=== PATIENT | male | born 1965 | race Caucasian/White ===

== ENCOUNTER 2020-03-25 07:12 | Emergency (ER) | payer OTHER, SELFPAY ==
[2020-03-25] VITALS (8 sets, daily range): BP systolic 105–161; BP diastolic 64–80; PULSE 95–135; RESP 21–42; TEMP 36.7–37.9; O2SAT 93–100; BMI 34.9
--- NOTE | ~2020-03-25 | XR_ITS ---
EXAMINATION: XR CHEST CLINICAL INFORMATION: Cough, dyspnea. COMPARISON: Chest 05/10/2019 TECHNIQUE: Frontal view of the chest was obtained. FINDINGS: The lungs are hypoexpanded with patchy opacity seen in the right upper and middle lobe and left lower lobe suspicious for developing infiltrates. Heart size and pulmonary vascularity is normal. No gross bony abnormality seen except for mild spondylosis dorsal spine. XR/XR chest 1V IMPRESSION: Right upper, mid and left lower lobe infiltrates in evolution.
--- NOTE | ~2020-03-25 | CT_ITS ---
EXAMINATION: CT ANGIOGRAM OF THE CHEST WITH AND WITHOUT CONTRAST (CT PULMONARY ANGIOGRAM FOR PE) CLINICAL INFORMATION: Reason for Exam Fever, shortness of breath, COVID +, elevated D-dimer r/o PE COMPARISON: Previous chest CT from earlier the same day and chest CTA April 2019 TECHNIQUE: Prior to contrast administration, noncontrast localization images were obtained. Subsequently, multidetector volumetric imaging was performed from the thoracic inlet to below the diaphragms following the administration of 80 mL Omnipaque 350 intravenous contrast. No contrast reaction reported Sagittal, coronal, and MIP oblique sagittal reformatted images were obtained on the CT workstation, uploaded to PACS, and reviewed. This CT examination was performed using dose optimization techniques as appropriate, variously including the following: *Automated exposure control *Adjustment of mA and/or kV according to patient size (this includes techniques or standardized protocols for targeted exams where dose is matched to indication/reason for exam; i.e. extremities or head) *Use of iterative reconstruction technique Total exam dose-length product mGy-cm FINDINGS: QUALITY OF STUDY/CONTRAST BOLUS: Satisfactory. PULMONARY ARTERIES: No evidence of large or central pulmonary embolism is seen. Evaluation of smaller segmental and subsegmental pulmonary arteries is significantly limited due to respiratory motion artifact. THORACIC AORTA: No aneurysm or dissection. LUNG: There are bilateral round peripheral infiltrates seen in the bilateral upper and left lower lobes and denser larger area of consolidation with air bronchograms in the right lower lobe. Appearance is compatible with Covid infection. PLEURA: No pleural effusion or pneumothorax. MEDIASTINUM: The heart is upper normal in size. No pericardial effusion. No hilar or mediastinal lymphadenopathy. No evidence of septal bowing or right heart strain. CHEST WALL/AXILLA: No axillary or internal mammary lymphadenopathy. OSSEOUS STRUCTURES: No acute or suspicious osseous abnormality. There are degenerative changes of the spine. UPPER ABDOMEN: Unremarkable. No reflux of contrast into the hepatic veins to suggest elevated right heart pressures. CT/CT angio chest PE protocol IMPRESSION: Very limited exam due to respiratory motion artifact. No evidence of large or central pulmonary embolism is seen. Evaluation of smaller segmental and subsegmental pulmonary arteries is significantly limited due to respiratory motion artifact. Bilateral round peripheral infiltrates in the bilateral upper and left lower lobes and denser larger area of consolidation with air bronchograms in the right lower lobe. Findings are compatible with Covid infection. VTE: negative
--- NOTE | 2020-03-25 07:36 | ECG_ITS ---
Test Reason : SOB Blood Pressure : / mmHG Vent. Rate : 121 BPM Atrial Rate : 121 BPM P-R Int : 126 ms QRS Dur : 084 ms QT Int : 316 ms P-R-T Axes : 049 085 022 degrees QTc Int : 448 ms Sinus tachycardia Possible Left atrial enlargement Nonspecific ST and T wave abnormality Abnormal ECG No previous ECGs available Referred By: Adam Staton Electronically Signed By:GALO DENNEY
--- NOTE | 2020-03-25 07:38 | ED.GENADULT ---
HPI - General Adult General Chief complaint: Dyspnea Stated complaint: SEVERE RESP DISTRESS, ? COVID Time Seen by Provider: 03/25/20 07:35 Source: patient Mode of arrival: EMS Limitations: no limitations History of Present Illness HPI narrative: 54-year-old male who presents emergency department for evaluation shortness of breath. The patient states that yesterday he was feeling a T he states that yesterday evening at around 10:00 p.m. he began to have shortness of breath. He states he has had a cough which is persistent and nonproductive. He had an albuterol inhaler and was using 2 puffs every 3 hours without relief of his shortness of breath or cough. He states that his symptoms got worse this morning and had difficulty breathing so he called an ambulance. EMS found the patient in moderate respiratory distress with a respiratory rate of 44 and an O2 saturation of 93% on room air. The patient states that his mother was recently diagnosed with COVID-19 and is currently hospitalized at [facility]. He has been living with his parents and has been exposed to his mother. He denied fever, chills, chest pain, myalgias, arthralgias, loss of sense of taste or smell. He states he did develop loose diarrheal stool yesterday. He denied abdominal pain. Related Data Previous Rx's Medication Instructions Recorded azithromycin [Zithromax Z-Chilango] See Rx Instructions .ROUTE 03/25/20 .COMPLEX #6 tab dexamethasone [Decadron] 6 mg PO DAILY 7 Days #7 tab 03/25/20 Allergies Allergy/AdvReac Type Severity Reaction Status Date / Time Penicillins [PENICILLINS] Allergy Unknown ANAPHYLAXIS Unverified 10/31/19 19:50 Review of Systems Review of Systems: Yes all other systems are reviewed and are negative Neurologic: Reports Abnormal speech present [facility] Past Medical History [facility] Narrative: Patient has a history of diabetes mellitus, hypertension, hyperlipidemia, he states that he has had bronchitis and pneumonia in the past. He is a former smoker and stopped smoking 20 years prior, denies drug and alcohol use. He is currently living with his parents and as stated in the HPI, his mother is COVID positive minutes hospitalized at [facility]. Medical History Bronchitis HTN (hypertension) Hyperlipemia Social History Social History Alcohol intake: never Smoking Status: Former smoker Smoked in Last 30 Days: No Use of substances other than those prescribed or required for medical reasons: No Advance Directives: No Advance Directives Information Provided: No Physical Exam Vital Signs: Vital Signs: Last Vital Signs Temp 98.1 F 03/25/20 13:45 Pulse 95 03/25/20 13:45 Resp 33 H 03/25/20 13:45 BP 105/69 03/25/20 13:45 Pulse Ox 100 03/25/20 13:45 Body Mass Index 34.9 Const: General: cooperative and in distress moderate (Respiratory distress, paroxysmal coughing) Orientation/consciousness: oriented to person and oriented to place Limitations: no limitations HENMT: Head: Yes normal to inspection, Yes normocephalic and Yes atraumatic Ears: external ears normal General nose exam: Normal external nose present Face and sinus: Yes normal facial exam Mouth: Normal oral and palatal mucosa present Throat: Yes posterior oropharynx normal Eyes: Periorbital: periorbital findings normal Eyelids: Yes eyelids normal Conjunctivae: conjunctivae normal Sclerae: sclerae normal Corneas: corneas normal Pupils: Equal, round and reactive pupils present Direct Ophthalmoscopy: normal light reflex Neck: Neck: Yes full ROM, Yes no lymphadenopathy, Yes no meningeal signs, Yes trachea midline and Yes supple Chest: Chest palpation & inspection: normal inspection of the chest and normal palpation of entire chest wall Resp: Effort & Inspection: respiratory distress (Moderate), tachypneic and tripod positioning Auscultation: clear to auscultation bilaterally Cardio: Rate: regular rate and tachycardic Rhythm: regular rhythm Heart sounds: S1 normal heart sound present, S2 normal heart sound present and no murmurs GI: Inspection: Yes normal to inspection Palpation (GI): Soft to palpation, nontender, no guarding, not rigid and No hepatosplenomegaly present : General: Yes no CVA tenderness Back/Spine/Pelvis: Back: no CVA tenderness Cervical Spine: normal cervical lordosis Thoracic/Lumbar Spine: thoracic and lumbar spine normal to inspection Skin: Lesions: no lesions Rashes: no rashes Wounds: no wounds Neuro: General: oriented to person, oriented to place and no meningeal signs Cranial nerves: Yes CN's II-XII intact bilaterally and Yes Equal, round and reactive pupils present Cognition (Neuro): normal cognition Speech: Abnormal speech present Motor exam (neuro): 5/5 motor strength present throughout Extrem: General: Yes normal to inspection and Yes full ROM Psych: Appearance: well kempt Mental Status: mental status grossly normal Speech and movement: Normal speech and movement present Affect: Anxious affect present Attitude: cooperative Thought process: Normal thought process present Thought content: Normal thought content present Insight: Good insight present (Psych) Course Course Course Narrative: 54-year-old male who presents the emergency department for evaluation shortness of breath, cough fatigue and diarrhea. The patient's mother is COVID-19 positive. The patient's physical examination did reveal that he was in moderate respiratory distress with try potting, tachypnea and paroxysms of cough. Vital signs revealed a normal blood pressure, he was tachycardic with a pulse of 135 and tachypneic with a respiratory rate of 42. Temperature was 99.3? and O2 saturation was 94% on room air suggesting does not have any hypoxia at this time. Lung exam was clear. I did order a septic workup on this patient including a COVID-19 test and D-dimer. The patient was treated with albuterol inhaler 6 puffs, Decadron 10 mg IV and Ativan 1 mg IV. He was also ordered to get normal saline x1 L. 1432: The patient's laboratory evaluation normal CBC, elevated D-dimer 388, elevated creatinine of 1.43, elevated glucose of 232, elevated lactate of 3.1, and a COVID-19 test which was positive. The patient's chest x-ray is consistent with increased interstitial infiltrates bilaterally/COVID pneumonia. CT scan angiogram PE protocol revealed no large blood clots, patient has significant bilateral pneumonia consistent with a viral COVID 19 pneumonia. The patient was treated with ceftriaxone 1 g IV, azithromycin 500 mg IV, Decadron 10 mg IV and normal saline IV x2 L. patient did have a repeat lactic acid which did show some improvement. The patient does meet SIRS criteria but I do not think that he has severe sepsis and that his tachypnea secondary to his COVID pneumonia. The patient was not hypoxic but his respiratory rate remained greater than 40 and therefore he was placed on high-flow oxygen via nasal cannula at 40% and 60 liters/minute. This improved the patient's respiratory rate to the 20 range and the patient looks significantly better. I did discuss the patient's presentation with the covering crude oil treater and he felt that the patient could be managed on the medical floor at this time. I did discuss the patient with the covering hospitalist the patient will be admitted to [facility] for further treatment 1447: The patient wants to sign out against medical advice. He is aware that he is at high risk of dying from COVID pneumonia he leaves the emergency department. The patient understood this discussion and still wants to leave against medical advice. I told him that at any time if he feels worse he should call 911 and come back to emergency department morphine changes his mind he should call 911 and come back to the emergency department. Medical Decision Making Lab Data Result diagrams: 03/25/20 08:05 03/25/20 08:05 Labs: Lab Results 03/25/20 03/25/20 03/25/20 Range/Units 08:05 08:05 08:05 WBC 10.6 (4.8-10.8) X10*3/uL RBC 5.31 (4.60-5.80) X10*6/uL Hgb 14.9 (14.0-18.0) g/dl Hct 45.8 (42-52) % MCV 86.3 (80-98) fL MCH 28.1 (27.0-33.0) pg MCHC 32.5 (31.0-36.0) g/dl RDW 14.5 (11.0-16.0) % Plt Count 266 (160-400) X10*3/uL MPV 10.2 (9.4-12.4) fL Immature Gran % (Auto) 0.6 H (0.0-0.4) % Neut % (Auto) 79.8 H (45-73) % Lymph % (Auto) 10.5 L (20-40) % [place] % (Auto) 9.0 (2-11) % Eos % (Auto) 0.0 (0-4) % Baso % (Auto) 0.1 (0-2) % Lymph # (Auto) 1.1 L (1.2-4.9) X10*3/uL [place] # (Auto) 1.0 (0.1-1.2) X10*3/uL Eos # (Auto) 0.0 (0.0-0.4) X10*3/uL Baso # (Auto) 0.0 (0.0-0.2) X10*3/uL Abs Immat Gran (auto) 0.06 H (0.00-0.03) X10*3/uL Absolute Neuts (auto) 8.5 H (2.0-8.3) X10*3/uL Absolute Nucleated RBC 0.000 (0.0-0.012) X10*3/uL Nucleated RBC % (auto) 0.0 (0.0-0.2) /100WBC PT 12.9 (10.8-13.0) SEC INR 1.1 (0.9-1.1) APTT 31.0 (24.1-38.0) SEC D-Dimer 388 NG/ML Oxygen Given Sodium 137 (135-145) mmol/L Potassium 4.6 (3.3-5.1) mmol/L Chloride 101 (96-108) mmol/L Carbon Dioxide 12 L (22-29) mmol/L Anion Gap 29 H (12-20) BUN 19 H (9-16) mg/dL Creatinine 1.43 H (0.5-1.4) mg/dL Estim Creat Clear Calc 61.1 Estimated GFR 51 Random Glucose 232 H (60-115) mg/dL Lactic Acid (0.5-2.0) mmol/L Lactic Acid Fup @ 2Hr (0.5-2.0) mmol/L Calcium 8.1 L (8.4-10.2) mg/dL Total Bilirubin 0.5 (0.0-1.0) mg/dL AST 20 (5-37) U/L ALT 14 (0-40) U/L Alkaline Phosphatase 66 (39-117) U/L Troponin I High Sens (<3.5-35.0) ng/L Total Protein 6.8 (6.5-8.0) g/dL Albumin 3.8 (3.5-5.0) g/dL Lipase 18 (8-78) U/L Urine Color Urine Appearance Urine pH (5.0-8.0) Ur Specific [place] (1.005-1.025) Urine Protein (NEG-TRACE) MG/DL Urine Glucose (UA) (NEG) MG/DL Urine Ketones (NEG) MG/DL Urine Blood (NEG) Urine Nitrite (NEG) Ur Leukocyte Esterase (NEG) Urine RBC (0) /HPF Urine WBC (0-4) /HPF Ur Squamous Epith Cells /LPF Urine Bacteria /LPF Hyaline Casts /LPF Granular Casts /LPF Urine Mucus /LPF COVID-19 ([facility]) (Negative) COVID-19 Clin Com 03/25/20 03/25/20 03/25/20 Range/Units 08:05 08:05 08:05 WBC (4.8-10.8) X10*3/uL RBC (4.60-5.80) X10*6/uL Hgb (14.0-18.0) g/dl Hct (42-52) % MCV (80-98) fL MCH (27.0-33.0) pg MCHC (31.0-36.0) g/dl RDW (11.0-16.0) % Plt Count (160-400) X10*3/uL MPV (9.4-12.4) fL Immature Gran % (Auto) (0.0-0.4) % Neut % (Auto) (45-73) % Lymph % (Auto) (20-40) % [place] % (Auto) (2-11) % Eos % (Auto) (0-4) % Baso % (Auto) (0-2) % Lymph # (Auto) (1.2-4.9) X10*3/uL [place] # (Auto) (0.1-1.2) X10*3/uL Eos # (Auto) (0.0-0.4) X10*3/uL Baso # (Auto) (0.0-0.2) X10*3/uL Abs Immat Gran (auto) (0.00-0.03) X10*3/uL Absolute Neuts (auto) (2.0-8.3) X10*3/uL Absolute Nucleated RBC (0.0-0.012) X10*3/uL Nucleated RBC % (auto) (0.0-0.2) /100WBC PT (10.8-13.0) SEC INR (0.9-1.1) APTT (24.1-38.0) SEC D-Dimer NG/ML Oxygen Given Sodium (135-145) mmol/L Potassium (3.3-5.1) mmol/L Chloride (96-108) mmol/L Carbon Dioxide (22-29) mmol/L Anion Gap (12-20) BUN (9-16) mg/dL Creatinine (0.5-1.4) mg/dL Estim Creat Clear Calc Estimated GFR Random Glucose (60-115) mg/dL Lactic Acid 3.1 H* (0.5-2.0) mmol/L Lactic Acid Fup @ 2Hr (0.5-2.0) mmol/L Calcium (8.4-10.2) mg/dL Total Bilirubin (0.0-1.0) mg/dL AST (5-37) U/L ALT (0-40) U/L Alkaline Phosphatase (39-117) U/L Troponin I High Sens 3.7 (<3.5-35.0) ng/L Total Protein (6.5-8.0) g/dL Albumin (3.5-5.0) g/dL Lipase (8-78) U/L Urine Color Urine Appearance Urine pH (5.0-8.0) Ur Specific [place] (1.005-1.025) Urine Protein (NEG-TRACE) MG/DL Urine Glucose (UA) (NEG) MG/DL Urine Ketones (NEG) MG/DL Urine Blood (NEG) Urine Nitrite (NEG) Ur Leukocyte Esterase (NEG) Urine RBC (0) /HPF Urine WBC (0-4) /HPF Ur Squamous Epith Cells /LPF Urine Bacteria /LPF Hyaline Casts /LPF Granular Casts /LPF Urine Mucus /LPF COVID-19 ([facility]) Positive A (Negative) COVID-19 Clin Com See Note 03/25/20 03/25/20 03/25/20 Range/Units 12:13 12:13 14:20 WBC (4.8-10.8) X10*3/uL RBC (4.60-5.80) X10*6/uL Hgb (14.0-18.0) g/dl Hct (42-52) % MCV (80-98) fL MCH (27.0-33.0) pg MCHC (31.0-36.0) g/dl RDW (11.0-16.0) % Plt Count (160-400) X10*3/uL MPV (9.4-12.4) fL Immature Gran % (Auto) (0.0-0.4) % Neut % (Auto) (45-73) % Lymph % (Auto) (20-40) % [place] % (Auto) (2-11) % Eos % (Auto) (0-4) % Baso % (Auto) (0-2) % Lymph # (Auto) (1.2-4.9) X10*3/uL [place] # (Auto) (0.1-1.2) X10*3/uL Eos # (Auto) (0.0-0.4) X10*3/uL Baso # (Auto) (0.0-0.2) X10*3/uL Abs Immat Gran (auto) (0.00-0.03) X10*3/uL Absolute Neuts (auto) (2.0-8.3) X10*3/uL Absolute Nucleated RBC (0.0-0.012) X10*3/uL Nucleated RBC % (auto) (0.0-0.2) /100WBC PT (10.8-13.0) SEC INR (0.9-1.1) APTT (24.1-38.0) SEC D-Dimer NG/ML Oxygen Given 35% Sodium (135-145) mmol/L Potassium (3.3-5.1) mmol/L Chloride (96-108) mmol/L Carbon Dioxide (22-29) mmol/L Anion Gap (12-20) BUN (9-16) mg/dL Creatinine (0.5-1.4) mg/dL Estim Creat Clear Calc Estimated GFR Random Glucose (60-115) mg/dL Lactic Acid (0.5-2.0) mmol/L Lactic Acid Fup @ 2Hr 2.5 H* (0.5-2.0) mmol/L Calcium (8.4-10.2) mg/dL Total Bilirubin (0.0-1.0) mg/dL AST (5-37) U/L ALT (0-40) U/L Alkaline Phosphatase (39-117) U/L Troponin I High Sens (<3.5-35.0) ng/L Total Protein (6.5-8.0) g/dL Albumin (3.5-5.0) g/dL Lipase (8-78) U/L Urine Color YELLOW Urine Appearance CLEAR Urine pH 5.5 (5.0-8.0) Ur Specific [place] 1.025 (1.005-1.025) Urine Protein TRACE (NEG-TRACE) MG/DL Urine Glucose (UA) >=1000 H (NEG) MG/DL Urine Ketones >=80 (NEG) MG/DL Urine Blood 1+ H (NEG) Urine Nitrite NEG (NEG) Ur Leukocyte Esterase NEG (NEG) Urine RBC 0-2 (0) /HPF Urine WBC 0-2 (0-4) /HPF Ur Squamous Epith Cells TRACE /LPF Urine Bacteria NONE /LPF Hyaline Casts 0-2 /LPF Granular Casts 1-4 /LPF Urine Mucus TRACE /LPF COVID-19 ([facility]) (Negative) COVID-19 Clin Com Discharge Plan Discharge Clinical Impression: Pneumonia due to COVID-19 virus, Acute dyspnea, Left against medical advice Patient Disposition: Home, Self-Care Instructions: COVID-19 (Coronavirus Disease 2019) (ED) Additional Instructions: Your COVID test was positive. The CT scan of your lungs revealed no blood clots but he had extensive pneumonia in both sides of your once. You are leaving against medical advice. If you change your mind at any time, call 911 and come back to the emergency department for evaluation. You need to self isolate for 14 days. Take Zithromax antibiotic as prescribed Take prednisone 60 mg once a day for 7 days. Prescriptions: New azithromycin [Zithromax Z-Chilango] 250 mg tablet See Rx Instructions .ROUTE .COMPLEX Qty: 6 RF: 0 dexamethasone [Decadron] 6 mg tablet 6 mg PO DAILY 7 Days Qty: 7 RF: 0 Stand Alone Forms: Against Medical Advice
[2020-03-25] MEDS: 0.9 % Sodium Chloride 1,000 ML 999 ML IV ×2 (08:15→11:13)
[2020-03-25] MEDS: LORazepam 2 MG/ML VIAL 1 MG IVPUSH (08:21)
[2020-03-25 08:23] LABS: MANUAL DIFF FLAG NO
[2020-03-25 08:37] LABS: Basophils Percent Auto 0.1 % (0-2); COVID-19 Test Positive (Negative); Hematocrit 45.8 % (42-52); Hemoglobin 14.9 g/dl (14.0-18.0); Imm Gran Abs Auto 0.06 X10*3/uL (0.00-0.03); Imm Gran Pct Auto 0.6 % (0.0-0.4); Lymphocytes Absolute Auto 1.1 X10*3/uL (1.2-4.9); Lymphocytes Percent Auto 10.5 % (20-40); Mean Corpuscular HGB Conc 32.5 g/dl (31.0-36.0); Mean Corpuscular Hemoglobin 28.1 pg (27.0-33.0); Mean Corpuscular Volume 86.3 fL (80-98); Mean Platelet Volume 10.2 fL (9.4-12.4); Neutrophils Absolute Auto 8.5 X10*3/uL (2.0-8.3); Neutrophils Percent Auto 79.8 % (45-73); Platelet Count 266 X10*3/uL (160-400); Red Blood Count 5.31 X10*6/uL (4.60-5.80); Red Cell Distribution Width 14.5 % (11.0-16.0); White Blood Count 10.6 X10*3/uL (4.8-10.8)
[2020-03-25 08:54] LABS: INTERNATIONAL NORM RATIO 1.1 (0.9-1.1); Lactic Acid 3.1 mmol/L (0.5-2.0); Prothrombin Time 12.9 SEC (10.8-13.0)
[2020-03-25 08:57] LABS: D Dimer 388 NG/ML
[2020-03-25 08:58] LABS: Troponin-I High Sensitivity 3.7 ng/L (<3.5-35.0)
--- NOTE | 2020-03-25 09:03 | PC.NURSE ---
pt brought in home meds and took morning meds himself
[2020-03-25] MEDS: Acetaminophen 325 MG TABLET 975 MG PO (09:06)
[2020-03-25 09:08] LABS: Alanine Aminotransferase 14 U/L (0-40); Albumin Level 3.8 g/dL (3.5-5.0); Alkaline Phosphatase 66 U/L (39-117); Anion Gap 29 (12-20); Aspartate Amino Transferase 20 U/L (5-37); Bilirubin Total 0.5 mg/dL (0.0-1.0); Blood Urea Nitrogen 19 mg/dL (9-16); Calcium 8.1 mg/dL (8.4-10.2); Carbon Dioxide 12 mmol/L (22-29); Chloride 101 mmol/L (96-108); Creatinine Clr Calc Pharmacy 61.1; Estimated Glomerular Filt Rate 51; Glucose Random 232 mg/dL (60-115); Lipase 18 U/L (8-78); Potassium 4.6 mmol/L (3.3-5.1); Sodium 137 mmol/L (135-145); Total Protein 6.8 g/dL (6.5-8.0)
[2020-03-25 10:21] LABS: Reflex Lactate? Lactic Acid Added
--- NOTE | 2020-03-25 11:00 | PC.NURSE ---
PROVIDER AWARE THAT PATIENT REMAINS TACHY WITH INCREASED RESP RATE
[2020-03-25] MEDS: cefTRIAXone sodium 1 GM in 0.9 % Sodium Chloride 50 ML IV (11:13)
[2020-03-25] MEDS: Azithromycin 500 MG in 0.9 % Sodium Chloride 250 ML 125 MG IV (11:51)
[2020-03-25 12:28] LABS: Glucose Urine UA >=1000 MG/DL (NEG); Leukocyte Esterase Urine NEG (NEG); Nitrite Urine NEG (NEG); PH 5.5 (5.0-8.0); Specific Gravity - Urine 1.025 (1.005-1.025); Urine Blood 1+ (NEG); Urine Ketones >=80 MG/DL (NEG); Urine Protein TRACE MG/DL (NEG-TRACE)
[2020-03-25 12:35] LABS: Appearance Urine CLEAR; Color Urine YELLOW
[2020-03-25 12:42] LABS: Mucus Urine TRACE /LPF; RBC Urine 0-2 /HPF (0); Squamous Epithelial Cell Urine TRACE /LPF; WBC Urine 0-2 /HPF (0-4)
[2020-03-25 12:43] LABS: Hyaline Casts Urine 0-2 /LPF
[2020-03-25] MEDS: iohexoL 350 MG/ML 100 ML INFUS..BTL IV (12:46)
[2020-03-25 12:50] LABS: ~Lactic Acid-LAB USE ONLY 2.5 mmol/L (0.5-2.0)
--- NOTE | 2020-03-25 13:51 | PC.NURSE ---
pt started on high flow cannula 60L/42%
[2020-03-25 14:19] LABS: Reflex Lactate? 2 Y
[2020-03-25 14:29] LABS: Pt Ventilation O2% 35%
[2020-03-25 14:33] LABS: Base Excess ABG -16.3; HCO3 ABG 8 mmol/L (22-26); PO2 ABG 132 mmHg (83-108); pH ABG 7.25 (7.35-7.45)
[2020-03-25 14:34] LABS: ABG PCO2 17 mmHg (32-45)
[2020-03-25 14:59] LABS: C Reactive Protein 8.68 mg/dL (< or = 0.50); Lactate Dehydrogenase 372 U/L (118-273)
[2020-03-25 15:19] LABS: Ferritin 430 ng/mL (20-250)
[2020-03-25 15:21] LABS: Procalcitonin 0.19 ng/mL
--- NOTE | 2020-03-25 15:21 | PC.NURSE ---
Received male patient alert and oriented times four. Patient noted SOB, unable to complete full sentences. Patient lung sounds diminished. Patient aware of present states of condition. Patient is being discharged AMA. This nurse strongly suggested against it alongside prior nurses and provider but patient adamant in leaving. Patient was strongky sugessted to return upon taking care of emergent personal issue at home with elderly parent.
== END 2020-03-25 16:02 | disposition home or self-care (01) ==
PROVIDERS: Emergency Provider Emergency Medicine Emergency Medical Services
DX: U07.1 COVID-19 (principal); J12.82 Pneumonia due to coronavirus disease 2019; R06.00 Dyspnea, unspecified; Z79.899 Other long term (current) drug therapy; I10 Essential (primary) hypertension; E78.5 Hyperlipidemia, unspecified
CPT/HCPCS: 36415; 71045; 71275; 80053; 81001; 82728; 82803; 83605; 83615; 83690; 84145; 84484; 85025; 85379; 85610; 85730; 86140; 87040; 87635; 93005; 96361; 96365; 96375; 99284; 99285; J0456; J0696; J1100; J2060; Q9967

== ENCOUNTER 2020-03-26 11:10 | Inpatient (IN) | payer OTHER, SELFPAY ==
[2020-03-26] VITALS (22 sets, daily range): BP systolic 82–130; BP diastolic 42–90; PULSE 93–140; RESP 13–45; TEMP 36.3–37.7; O2SAT 90–100; BMI 28.3; BMI 27.8
--- NOTE | 2020-03-26 | ECG_ITS ---
Test Reason : metabolic acidosis Blood Pressure : / mmHG Vent. Rate : 115 BPM Atrial Rate : 115 BPM P-R Int : 130 ms QRS Dur : 086 ms QT Int : 352 ms P-R-T Axes : 069 084 032 degrees QTc Int : 486 ms Sinus tachycardia Otherwise normal ECG When compared to the previous EKG of No significant changes seen Referred By: Leena Stewart Electronically Signed By:JUAN NAVARRETE MD
--- NOTE | ~2020-03-26 | XR_ITS ---
EXAMINATION: XR CHEST CLINICAL INFORMATION: Hypoxia COMPARISON: Chest x-ray 03/29/2020 TECHNIQUE: Frontal portable view of the chest was obtained. 11:07 PM FINDINGS: Tubes and lines: 1. Endotracheal tube 4 sinus above juliocesar. 2. Left IJ catheter tip in superior vena cava. 3. Nasogastric tube in stomach. There is persistent hazy and patchy airspace opacities in lung bilateral. Most consolidated region is at the left lung base with air bronchograms in the retrocardiac region and silhouetting the left diaphragm. No large pleural effusions. XR/XR chest 1V IMPRESSION: Persistent bilateral airspace opacities. No significant change since prior chest x-ray 03/29/2020.
--- NOTE | ~2020-03-26 | XR_ITS ---
EXAMINATION: XR CHEST CLINICAL INFORMATION: Hypoxemia COMPARISON: Previous day TECHNIQUE: Frontal view of the chest was obtained. FINDINGS: Endotracheal tube remains within the mid thoracic trachea. Enteric tube courses below the diaphragm. Left internal jugular central venous catheter terminates within the mid SVC. Stable cardiomediastinal silhouette. Mild bilateral patchy airspace opacities unchanged. No large pleural effusion or pneumothorax. XR/XR chest 1V IMPRESSION: Stable airspace disease.
--- NOTE | ~2020-03-26 | XR_ITS ---
EXAMINATION: XR CHEST CLINICAL INFORMATION: Shortness of breath. COVID COMPARISON: Chest radiographs 03/25/2020, 05/10/2019, CT abdomen chest 03/25/2020 TECHNIQUE: Portable upright AP view of the chest was obtained. FINDINGS: Patient is slightly rotated to the right. There is an endotracheal tube with tip 2 cm from juliocesar. There is an orogastric tube with tip at lower thoracic esophagus 5 cm above the diaphragm. Repositioning is recommended. Lungs again shows some scattered patchy airspace opacities, increased left base and likely increased right retrocardiac region right medial base. Opacities right upper zone are stable to decreased. The vascularity is normal. The costophrenic sulci are clear. There is no effusion. The cardiac and hilar and mediastinal contours are unremarkable. Results are called and discussed with emergency Department (Brayden James NP) at 1306 hours. XR/XR chest 1V IMPRESSION: 1. NG/OG tube lower thoracic esophagus, 5 cm of the diaphragm. Repositioning recommended. 2. ET tube 2 cm above juliocesar. 3. Patchy airspace opacities, new small left base and likely increased right infrahilar region.
--- NOTE | ~2020-03-26 | XR_ITS ---
EXAMINATION: XR CHEST CLINICAL INFORMATION: Hypoxia COMPARISON: Previous chest x-ray most recent 03/31/2020 TECHNIQUE: Frontal view of the chest was obtained. FINDINGS: There is an endotracheal tube with tip 6 cm above the juliocesar. There is a nasogastric tube projects over the stomach. There is a left jugular line with tip projecting over the SVC. The cardiac and mediastinal contours are stable. There is dense bilateral airspace disease. This is greatest in the left lower lobe. This appears increased from 03/31/2020 exam. There is no significant pleural effusion. There is no pneumothorax. There are degenerative changes of the spine. XR/XR chest 1V IMPRESSION: Satisfactory position of support line and tubes. Increasing bilateral airspace disease probably representing pneumonia.
--- NOTE | ~2020-03-26 | XR_ITS ---
EXAMINATION: XR CHEST CLINICAL INFORMATION: ET tube placement COMPARISON: Earlier exam same day 12:32 PM TECHNIQUE: Portable 3:56 PM view of the chest was obtained. FINDINGS: ET tube tip remains relatively low approximately 2.2 cm above the juliocesar. The central aeration noted. Left-sided central line now with its tip overlying the SVC. No gross pneumothorax. There are patchy peripheral densities left greater than right consistent with atypical infection. No overt pulmonary edema major zones of volume loss or consolidation. Multiple leads again overlie the chest. OG tube appears to been discontinued. There is no OG tube within the stomach. Correlate clinically concerning once again a malpositioned tube as previously noted superimposed on the ET tube. XR/XR chest 1V IMPRESSION: ET tube remains similar to baseline as above. Bilateral infiltrates again noted consistent with atypical infection. OG tube not definitively seen as above. If this was not discontinued, malpositioning again noted.
--- NOTE | ~2020-03-26 | XR_ITS ---
EXAMINATION: XR CHEST CLINICAL INFORMATION: Covid COMPARISON: March 26, 2020 and March 25, 2020 TECHNIQUE: AP portable view of the chest was obtained. FINDINGS: There are again noted to be regions of patchy disease throughout the right lung as well as some disease within the mid to lower left lung. No significant changes appreciated taking into account difference in technique. Endotracheal tube is seen with tip approximately 4 cm above the juliocesar. Left internal jugular central venous catheter seen with tip junction of the innominate vein and superior vena cava. Heart normal size. No evidence of pulmonary edema. Nasogastric tube is seen traversing toward the stomach however its tip is not definitely identified. No pneumothorax or pleural effusion appreciated. XR/XR chest 1V IMPRESSION: No significant change in bilateral regions of patchy disease. Endotracheal tube tip approximately 4 cm above the juliocesar.
--- NOTE | ~2020-03-26 | XR_ITS ---
EXAMINATION: XR CHEST CLINICAL INFORMATION: OG placement COMPARISON: Earlier exam same day TECHNIQUE: Portable 8:09 PM view of the chest was obtained. FINDINGS: OG tube placed with its tip well below the GE junction overlying the gastric body. ET tube and central line similar. No pneumothorax grossly. Patchy infiltrates peripherally most consistent with atypical infection unchanged. XR/XR chest 1V IMPRESSION: As above.
--- NOTE | 2020-03-26 11:12 | ED.SOB ---
HPI - SOB/Dyspnea General Chief Complaint: Altered Mental Status Stated Complaint: SOB,+COVID,AMS Time Seen by Provider: 03/26/20 11:12 Source: EMS Mode of arrival: EMS Limitations: altered mental status History of Present Illness HPI Narrative: Patient with bilateral pneumonia secondary to COVID-19 infection was seen here yesterday for shortness of breath with going on for last 2-3 days CTA chest was negative for PE patient advised to stay in the hospital but patient refused was given Zithromax in and Decadron. Patient was hyperventilating yesterday maintaining his oxygen patient lives with his father who said since yesterday evening patient been going downhill when EMS reached patient was in the bed obtunded salt in stool with mottling of the legs saturating around 70% on arrival patient is saturating 99% on non-rebreather tachypneic semi conscious but able to maintain his airway Related Data Home Medications Medication Instructions Recorded Confirmed aspirin 81 mg PO DAILY 03/25/20 03/25/20 atorvastatin 20 mg PO DAILY 03/25/20 03/25/20 dulaglutide [Trulicity] 1.5 mg SUBCUT QWEEK 03/25/20 03/25/20 empagliflozin [Jardiance] 10 mg PO DAILY 03/25/20 03/25/20 levothyroxine 75 mcg PO DAILY 03/25/20 03/25/20 lisinopril 2.5 mg PO DAILY 03/25/20 03/25/20 metformin 1,000 mg PO BID 03/25/20 03/25/20 Previous Rx's Medication Instructions Recorded azithromycin [Zithromax Z-Chilango] See Rx Instructions .ROUTE 03/25/20 .COMPLEX #6 tab dexamethasone [Decadron] 6 mg PO DAILY 7 Days #7 tab 03/25/20 Allergies Allergy/AdvReac Type Severity Reaction Status Date / Time Penicillins [PENICILLINS] Allergy Unknown ANAPHYLAXIS Unverified 10/31/19 19:50 Review of Systems Review of Systems: Yes Unobtainable due to mental status Neurologic: Reports confusion Psychiatric: Psychiatric: Reports confusion PMF Past Medical History Medical History Bronchitis HTN (hypertension) Hyperlipemia Social History Social History Alcohol intake: never Smoking Status: Former smoker Advance Directives: No Advance Directives Information Provided: No Physical Exam Vital Signs: Vital Signs: Last Vital Signs Temp 98.4 F 03/26/20 12:19 Pulse 120 H 03/26/20 12:20 Resp 20 03/26/20 12:19 BP 87/46 L 03/26/20 12:20 Pulse Ox 90 L 03/26/20 12:19 Body Mass Index 27.8 Const: General: confusion, ill appearing, lethargic and patient obtunded (Partially responding) Orientation/consciousness: confusion, patient obtunded (Partially responding) and lethargic HENMT: Head: Yes normocephalic and Yes atraumatic General nose exam: Normal external nose present Face and sinus: Yes normal facial exam Mouth: Normal oral and palatal mucosa present Eyes: General: appearance normal, both eyes and all related structures Neck: Neck: Yes normal visual inspection and Yes no JVD Thyroid: Thyroid normal Chest: Chest palpation & inspection: normal inspection of the chest Resp: Effort & Inspection: labored and nasal flaring Auscultation: diminished lung sounds Cardio: Jugular venous distension: no JVD Palpation: normal PMI Rate: tachycardic Rhythm: regular rhythm Heart sounds: S1 normal heart sound present, S2 normal heart sound present and no murmurs Peripheral pulses: Peripheral pulses 2+ throughout GI: Inspection: Yes normal to inspection Palpation (GI): Soft to palpation, nontender and no guarding Back/Spine/Pelvis: Thoracic/Lumbar Spine: thoracic and lumbar spine normal to inspection Skin: General skin exam: mottling (Lower extremity) Neuro: General: moves all extremities, confusion and patient obtunded (Partially responding) Extrem: General: No no calf tenderness and No pedal edema Course Reevaluation(s) Reevaluation #1: Dr. Stewart orientation and mobility specialist at bedside planning to intubate because patient is obtunded and working hard for breathing although saturating 99% on non-rebreather Time: 11:43 MDM - SOB/Dyspnea MDM Narrative Medical decision making narrative: Patient is COVID-19 with significant hypoxia and metabolic acidosis with acute renal failure hyperglycemia respiratory failure intubated in the ER. Will admit patient to ICU. Started on Levophed drip for hypotension also started on Rocephin and doxycycline also given dose of Decadron 10 mg IV Differential Diagnosis Differential diagnosis: Likely pneumonia Medical Records Attestation: I reviewed the patient's medical records. Lab Data Attestation: I reviewed the patient's lab results. Result diagrams: 03/26/20 11:19 03/26/20 11:19 Labs: Lab Results 03/26/20 03/26/20 03/26/20 Range/Units 11:19 11:19 11:19 WBC 29.6 H (4.8-10.8) X10*3/uL RBC 5.11 (4.60-5.80) X10*6/uL Hgb 14.5 (14.0-18.0) g/dl Hct 46.7 (42-52) % MCV 91.4 D (80-98) fL MCH 28.4 (27.0-33.0) pg MCHC 31.0 (31.0-36.0) g/dl RDW 15.0 (11.0-16.0) % Plt Count 453 H D (160-400) X10*3/uL MPV 10.1 (9.4-12.4) fL Immature Gran % (Auto) 2.7 H (0.0-0.4) % Neut % (Auto) 81.5 H (45-73) % Lymph % (Auto) 6.7 L (20-40) % [place] % (Auto) 8.9 (2-11) % Eos % (Auto) 0.0 (0-4) % Baso % (Auto) 0.2 (0-2) % Lymph # (Auto) 2.0 (1.2-4.9) X10*3/uL [place] # (Auto) 2.6 H (0.1-1.2) X10*3/uL Eos # (Auto) 0.0 (0.0-0.4) X10*3/uL Baso # (Auto) 0.1 (0.0-0.2) X10*3/uL Abs Immat Gran (auto) 0.81 H (0.00-0.03) X10*3/uL Absolute Neuts (auto) 24.1 H (2.0-8.3) X10*3/uL Absolute Nucleated RBC 0.000 (0.0-0.012) X10*3/uL Nucleated RBC % (auto) 0.0 (0.0-0.2) /100WBC Smear Tech's Comments VERIFIED PT 12.6 (10.8-13.0) SEC INR 1.1 (0.9-1.1) APTT 29.8 (24.1-38.0) SEC D-Dimer 701 NG/ML VBG pH (7.32-7.43) VBG pCO2 mmHg VBG pO2 mmHg VBG HCO3 mmol/L VBG O2 Saturation % VBG Base Excess mmol/L Sodium 142 (135-145) mmol/L Potassium 5.9 H D (3.3-5.1) mmol/L Chloride 109 H (96-108) mmol/L Carbon Dioxide 7 L* D (22-29) mmol/L Anion Gap 32 H (12-20) BUN 33 H D (9-16) mg/dL Creatinine 2.16 H (0.5-1.4) mg/dL Estim Creat Clear Calc 40.0 Estimated GFR 32 Random Glucose 438 H* (60-115) mg/dL Lactic Acid (0.5-2.0) mmol/L Calcium 8.4 (8.4-10.2) mg/dL Total Bilirubin 0.3 (0.0-1.0) mg/dL Direct Bilirubin 0.2 (0.0-0.5) mg/dL AST 16 (5-37) U/L ALT 13 (0-40) U/L Alkaline Phosphatase 68 (39-117) U/L Lactate Dehydrogenase 378 H (118-273) U/L Troponin I High Sens (<3.5-35.0) ng/L Total Protein 6.7 (6.5-8.0) g/dL Albumin 3.9 (3.5-5.0) g/dL 03/26/20 03/26/20 03/26/20 Range/Units 11:19 11:19 11:31 WBC (4.8-10.8) X10*3/uL RBC (4.60-5.80) X10*6/uL Hgb (14.0-18.0) g/dl Hct (42-52) % MCV (80-98) fL MCH (27.0-33.0) pg MCHC (31.0-36.0) g/dl RDW (11.0-16.0) % Plt Count (160-400) X10*3/uL MPV (9.4-12.4) fL Immature Gran % (Auto) (0.0-0.4) % Neut % (Auto) (45-73) % Lymph % (Auto) (20-40) % [place] % (Auto) (2-11) % Eos % (Auto) (0-4) % Baso % (Auto) (0-2) % Lymph # (Auto) (1.2-4.9) X10*3/uL [place] # (Auto) (0.1-1.2) X10*3/uL Eos # (Auto) (0.0-0.4) X10*3/uL Baso # (Auto) (0.0-0.2) X10*3/uL Abs Immat Gran (auto) (0.00-0.03) X10*3/uL Absolute Neuts (auto) (2.0-8.3) X10*3/uL Absolute Nucleated RBC (0.0-0.012) X10*3/uL Nucleated RBC % (auto) (0.0-0.2) /100WBC Smear Tech's Comments PT (10.8-13.0) SEC INR (0.9-1.1) APTT (24.1-38.0) SEC D-Dimer NG/ML VBG pH 6.86 L* (7.32-7.43) VBG pCO2 18 mmHg VBG pO2 85 mmHg VBG HCO3 3 mmol/L VBG O2 Saturation 90.0 % VBG Base Excess -28.9 mmol/L Sodium (135-145) mmol/L Potassium (3.3-5.1) mmol/L Chloride (96-108) mmol/L Carbon Dioxide (22-29) mmol/L Anion Gap (12-20) BUN (9-16) mg/dL Creatinine (0.5-1.4) mg/dL Estim Creat Clear Calc Estimated GFR Random Glucose (60-115) mg/dL Lactic Acid 2.5 H* (0.5-2.0) mmol/L Calcium (8.4-10.2) mg/dL Total Bilirubin (0.0-1.0) mg/dL Direct Bilirubin (0.0-0.5) mg/dL AST (5-37) U/L ALT (0-40) U/L Alkaline Phosphatase (39-117) U/L Lactate Dehydrogenase (118-273) U/L Troponin I High Sens 66.5 H D (<3.5-35.0) ng/L Total Protein (6.5-8.0) g/dL Albumin (3.5-5.0) g/dL ABG Data Interpretation: Metabolic acidosis hypoxia ECG Data Attestation: I personally reviewed and interpreted this ECG as follows: Interpretation: Sinus tachycardia heart rate 136 beats per minute normal axis normal intervals no acute ischemia Discharge Plan Discharge Prescriptions: No Action atorvastatin 20 mg tablet 20 mg PO DAILY RF: 0 aspirin 81 mg tablet,delayed release (DR/EC) 81 mg PO DAILY RF: 0 levothyroxine 75 mcg tablet 75 mcg PO DAILY RF: 0 metformin 1,000 mg tablet 1,000 mg PO BID RF: 0 lisinopril 2.5 mg tablet 2.5 mg PO DAILY RF: 0 Jardiance 10 mg tablet 10 mg PO DAILY RF: 0 Trulicity 1.5 mg/0.5 mL pen injector 1.5 mg subcut QWEEK RF: 0 azithromycin [Zithromax Z-Chilango] 250 mg tablet See Rx Instructions .ROUTE .COMPLEX Qty: 6 RF: 0 dexamethasone [Decadron] 6 mg tablet 6 mg PO DAILY 7 Days Qty: 7 RF: 0
--- NOTE | 2020-03-26 11:14 | ECG_ITS ---
Test Reason : SOB Blood Pressure : / mmHG Vent. Rate : 136 BPM Atrial Rate : 136 BPM P-R Int : 132 ms QRS Dur : 084 ms QT Int : 294 ms P-R-T Axes : 066 078 002 degrees QTc Int : 442 ms Sinus tachycardia Otherwise normal ECG When compared with ECG of 25-MAR-2020 08:02, No significant change was found Referred By: Fadi Montgomery Electronically Signed By:JUAN NAVARRETE MD
[2020-03-26] MEDS: cefTRIAXone sodium 1 GM in 0.9 % Sodium Chloride 50 ML IV (11:28)
[2020-03-26] MEDS: 0.9 % Sodium Chloride 1,000 ML 999 ML IVCONT (11:30)
[2020-03-26 11:38] LABS: Basophils Absolute Auto 0.1 X10*3/uL (0.0-0.2); Basophils Percent Auto 0.2 % (0-2); Hematocrit 46.7 % (42-52); Hemoglobin 14.5 g/dl (14.0-18.0); Imm Gran Abs Auto 0.81 X10*3/uL (0.00-0.03); Imm Gran Pct Auto 2.7 % (0.0-0.4); Lymphocytes Percent Auto 6.7 % (20-40); MANUAL DIFF FLAG SCAN; Mean Corpuscular Hemoglobin 28.4 pg (27.0-33.0); Mean Corpuscular Volume 91.4 fL (80-98); Mean Platelet Volume 10.1 fL (9.4-12.4); Monocytes Absolute Auto 2.6 X10*3/uL (0.1-1.2); Monocytes Percent Auto 8.9 % (2-11); Neutrophils Absolute Auto 24.1 X10*3/uL (2.0-8.3); Neutrophils Percent Auto 81.5 % (45-73); Platelet Count 453 X10*3/uL (160-400); Red Blood Count 5.11 X10*6/uL (4.60-5.80); SCAN SMEAR FLAG 1; White Blood Count 29.6 X10*3/uL (4.8-10.8)
[2020-03-26] MEDS: Doxycycline Hyclate 100 MG in 0.9 % Sodium Chloride 250 ML 166.67 MG IV (11:39)
[2020-03-26 11:42] LABS: Base Excess VBG -28.9 mmol/L
[2020-03-26 11:43] LABS: HCO3 VBG 3 mmol/L; PCO2 VBG 18 mmHg; PO2 VBG 85 mmHg
[2020-03-26 11:45] LABS: pH VBG 6.86 (7.32-7.43)
[2020-03-26] MEDS: propofoL 200 MG/20 ML VIAL 80 MG IVPUSH (11:47)
[2020-03-26 11:48] LABS: INTERNATIONAL NORM RATIO 1.1 (0.9-1.1); Prothrombin Time 12.6 SEC (10.8-13.0)
[2020-03-26] MEDS: Rocuronium Bromide 50 MG/5 ML VIAL 40 MG IVPUSH ×2 (11:48→15:46)
[2020-03-26 11:50] LABS: D Dimer 701 NG/ML; Partial Thromboplastin Time 29.8 SEC (24.1-38.0)
--- NOTE | 2020-03-26 11:50 | PC.NURSE ---
Backtimed note 1150 patient intubated by near eastern archaeology lecturer with size 8 tube. Measuring 26 at lip. Postitive color change. Patient placed 50% o2.
[2020-03-26] MEDS: propofoL 1,000 MG/100 ML VIAL 9.96 MG IVCONT (11:58)
--- NOTE | 2020-03-26 12:01 | PC.NURSE ---
This RN at bedside. destated to 86% on 50% oxygen. Patient increased to 100% oxygen stating at 90%. Pipe Insulator at beside, with plans to place central live. Patient sedated at this time. All extremities mottled.
[2020-03-26 12:04] LABS: Alanine Aminotransferase 13 U/L (0-40); Albumin Level 3.9 g/dL (3.5-5.0); Alkaline Phosphatase 68 U/L (39-117); Anion Gap 32 (12-20); Aspartate Amino Transferase 16 U/L (5-37); Bilirubin Direct 0.2 mg/dL (0.0-0.5); Bilirubin Total 0.3 mg/dL (0.0-1.0); Blood Urea Nitrogen 33 mg/dL (9-16); Calcium 8.4 mg/dL (8.4-10.2); Carbon Dioxide 7 mmol/L (22-29); Chloride 109 mmol/L (96-108); Estimated Glomerular Filt Rate 32; Glucose Random 438 mg/dL (60-115); Lactate Dehydrogenase 378 U/L (118-273); Potassium 5.9 mmol/L (3.3-5.1); Sodium 142 mmol/L (135-145); Total Protein 6.7 g/dL (6.5-8.0)
[2020-03-26 12:05] LABS: Lactic Acid 2.5 mmol/L (0.5-2.0); Troponin-I High Sensitivity 66.5 ng/L (<3.5-35.0)
[2020-03-26 12:12] LABS: SLIDE REVIEW VERIFIED
[2020-03-26] MEDS: Insulin Lispro 100 UNIT/ML 3 ML VIAL 10 UNIT SUBCUT (12:25)
[2020-03-26 12:31] LABS: Ferritin 686 ng/mL (20-250)
[2020-03-26 12:56] LABS: Glucose Urine UA >=1000 MG/DL (NEG); Leukocyte Esterase Urine NEG (NEG); Nitrite Urine NEG (NEG); PH 5.5 (5.0-8.0); Specific Gravity - Urine 1.025 (1.005-1.025); Urine Blood 2+ (NEG); Urine Ketones >=80 MG/DL (NEG); Urine Protein 1+ MG/DL (NEG-TRACE)
[2020-03-26] MEDS: Insulin Regular, Human 100 UNIT/ML 3 ML VIAL 10 UNIT IVPUSH (13:00)
[2020-03-26 13:04] LABS: Appearance Urine HAZY; Color Urine YELLOW
[2020-03-26 13:27] LABS: Amorphous Sediment Urine 2+ /LPF; Squamous Epithelial Cell Urine 1+ /LPF; WBC Urine 0 /HPF (0-4)
--- NOTE | 2020-03-26 13:29 | P.HPCC_ITS ---
History of Present Illness Date of Service: 03/26/20 Chief Complaint: Altered mental status/hypoxic respiratory failure 54-year-old insulin-requiring diabetic moderate obesity presented 24 hours earlier with bilateral COVID-[address] scan with bilateral nodular infiltrates and acidotic and advised to be admitted to the intermediate care unit and he signed out AMA Returning today profoundly acral cyanotic and with severe diffuse livedo and altered mental status and acute hypoxic respiratory failure and much more profound metabolic acidosis with bicarb deficit of 25 pH of 6.86 and required emergent intubation which went without complication was easy and with excellent visualization of the vocal cords and tube placement was checked above the juliocesar at 24 cm at the lip Central line placed via the left internal jugular vein with tip in the superior vena cava and we are pending a central venous pressure reading but aggressive IV fluids and Levophed support in addition to the ongoing need for propofol and ventilator starting at 100% with PEEP of 8 to be weaned to maintain oxygen saturation greater than or equal to 90% Review of Systems Review of Systems: Yes Unobtainable due to mental status PMFSH Past Medical History Medical History Bronchitis HTN (hypertension) Hyperlipemia Social History Social History Alcohol intake: never Smoking Status: Former smoker Advance Directives: No Advance Directives Information Provided: No Meds Allergies Allergy/AdvReac Type Severity Reaction Status Date / Time Penicillins [PENICILLINS] Allergy Unknown ANAPHYLAXIS Unverified 10/31/19 19:50 Active Medications: Current Medications Generic Name Dose Route Start Last Admin Trade Name Freq PRN Reason Stop Dose Admin Norepinephrine Bitartrate 8 mg in 250 mls @ 0 mls/hr 03/26/20 12:00 03/26/20 12:22 Levophed IVCONT 0.1 mcg/kg/min .Q0M FELIPE 15.56 mls/hr Titration Protocol Per Protocol Propofol 1,000 mg in 100 mls @ 0 mls/hr 03/26/20 12:00 03/26/20 12:47 Diprivan IVCONT 20 mcg/kg/min .Q0M FELIPE 9.96 mls/hr Titration Protocol Per Protocol Insulin Human Regular 100 unit in 100 mls @ 5 mls/hr 03/26/20 13:30 Myxredlin IVCONT .Q20H FELIPE Protocol Sodium Bicarbonate 150 meq/ 1,000 mls @ 50 mls/hr 03/26/20 13:30 Dextrose IVCONT 03/27/20 09:29 .Q20H ONE Pharmacy Consult 1 each 03/26/20 12:12 Consult Rx Perform Med Rec MISCELLANE ONCE PRN Consult order Home Medications Medication Instructions Recorded Confirmed Last Taken Type aspirin 81 mg PO DAILY 03/25/20 03/26/20 Unknown History atorvastatin 20 mg PO DAILY 03/25/20 03/26/20 Unknown History dulaglutide [Trulicity] 1.5 mg SUBCUT QWEEK 03/25/20 03/26/20 Unknown History empagliflozin [Jardiance] 10 mg PO DAILY 03/25/20 03/26/20 Unknown History levothyroxine 75 mcg PO DAILY 03/25/20 03/26/20 Unknown History lisinopril 2.5 mg PO DAILY 03/25/20 03/26/20 Unknown History metformin 1,000 mg PO BID 03/25/20 03/26/20 Unknown History Physical Exam Vital Signs: Vital Signs: Last Vital Signs Temp 98.1 F 03/26/20 12:49 Pulse 120 H 03/26/20 12:49 Resp 20 03/26/20 12:49 BP 103/53 L 03/26/20 12:49 Pulse Ox 100 03/26/20 12:49 Body Mass Index 27.8 Completely altered mental status no cognitive function Moves all 4 extremities Total body dense livedo with no palpable distal pulses but palpable carotid upstrokes Bedside echo showing hyperdynamic left ventricle estimated ejection fraction ab out 60% no primary valve or pericardial disease Chest with significant bilateral infiltrates and tip of the central venous catheter is in the superior vena cava the repositioned endotracheal tube is just above the juliocesar and OG tube is below the diaphragm in the stomach Abdomen is soft no palpable organomegaly Results Labs CBC and Chem 7: 03/26/20 11:19 03/26/20 11:19 Labs: Laboratory Results - last 24 hr 03/26/20 03/26/20 03/26/20 11:19 11:19 11:19 MCV 91.4 D MCH 28.4 MCHC 31.0 RDW 15.0 Plt Count 453 H D MPV 10.1 Immature Gran % (Auto) 2.7 H Neut % (Auto) 81.5 H Lymph % (Auto) 6.7 L [place] % (Auto) 8.9 Eos % (Auto) 0.0 Baso % (Auto) 0.2 Lymph # (Auto) 2.0 [place] # (Auto) 2.6 H Eos # (Auto) 0.0 Baso # (Auto) 0.1 Abs Immat Gran (auto) 0.81 H Absolute Neuts (auto) 24.1 H Absolute Nucleated RBC 0.000 Nucleated RBC % (auto) 0.0 Smear Tech's Comments VERIFIED PT 12.6 INR 1.1 APTT 29.8 D-Dimer 701 VBG pH VBG pCO2 VBG pO2 VBG HCO3 VBG O2 Saturation VBG Base Excess Anion Gap 32 H Estim Creat Clear Calc 40.0 Estimated GFR 32 Random Glucose 438 H* Lactic Acid Calcium 8.4 Ferritin 686 H Total Bilirubin 0.3 Direct Bilirubin 0.2 AST 16 ALT 13 Alkaline Phosphatase 68 Lactate Dehydrogenase 378 H Troponin I High Sens Total Protein 6.7 Albumin 3.9 Procalcitonin Urine Color Urine Appearance Urine pH Ur Specific [place] Urine Protein Urine Glucose (UA) Urine Ketones Urine Blood Urine Nitrite Ur Leukocyte Esterase Urine RBC Urine WBC Ur Squamous Epith Cells Amorphous Sediment Urine Bacteria Granular Casts 03/26/20 03/26/20 03/26/20 11:19 11:19 11:19 MCV MCH MCHC RDW Plt Count MPV Immature Gran % (Auto) Neut % (Auto) Lymph % (Auto) [place] % (Auto) Eos % (Auto) Baso % (Auto) Lymph # (Auto) [place] # (Auto) Eos # (Auto) Baso # (Auto) Abs Immat Gran (auto) Absolute Neuts (auto) Absolute Nucleated RBC Nucleated RBC % (auto) Smear Tech's Comments PT INR APTT D-Dimer VBG pH VBG pCO2 VBG pO2 VBG HCO3 VBG O2 Saturation VBG Base Excess Anion Gap Estim Creat Clear Calc Estimated GFR Random Glucose Lactic Acid 2.5 H* Calcium Ferritin Total Bilirubin Direct Bilirubin AST ALT Alkaline Phosphatase Lactate Dehydrogenase Troponin I High Sens 66.5 H D Total Protein Albumin Procalcitonin 9.50 Urine Color Urine Appearance Urine pH Ur Specific [place] Urine Protein Urine Glucose (UA) Urine Ketones Urine Blood Urine Nitrite Ur Leukocyte Esterase Urine RBC Urine WBC Ur Squamous Epith Cells Amorphous Sediment Urine Bacteria Granular Casts 03/26/20 03/26/20 11:31 11:37 MCV MCH MCHC RDW Plt Count MPV Immature Gran % (Auto) Neut % (Auto) Lymph % (Auto) [place] % (Auto) Eos % (Auto) Baso % (Auto) Lymph # (Auto) [place] # (Auto) Eos # (Auto) Baso # (Auto) Abs Immat Gran (auto) Absolute Neuts (auto) Absolute Nucleated RBC Nucleated RBC % (auto) Smear Tech's Comments PT INR APTT D-Dimer VBG pH 6.86 L* VBG pCO2 18 VBG pO2 85 VBG HCO3 3 VBG O2 Saturation 90.0 VBG Base Excess -28.9 Anion Gap Estim Creat Clear Calc Estimated GFR Random Glucose Lactic Acid Calcium Ferritin Total Bilirubin Direct Bilirubin AST ALT Alkaline Phosphatase Lactate Dehydrogenase Troponin I High Sens Total Protein Albumin Procalcitonin Urine Color YELLOW Urine Appearance HAZY Urine pH 5.5 Ur Specific [place] 1.025 Urine Protein 1+ H Urine Glucose (UA) >=1000 H Urine Ketones >=80 Urine Blood 2+ H Urine Nitrite NEG Ur Leukocyte Esterase NEG Urine RBC 5-9 H Urine WBC 0 Ur Squamous Epith Cells 1+ Amorphous Sediment 2+ Urine Bacteria NONE Granular Casts 1-4 Imaging Radiologist's Impressions: Impressions Chest X-Ray 03/26/20 11:14 IMPRESSION: 1. NG/OG tube lower thoracic esophagus, 5 cm of the diaphragm. Repositioning recommended. 2. ET tube 2 cm above juliocesar. 3. Patchy airspace opacities, new small left base and likely increased right infrahilar region. Assessment and Plan (1) Pneumonia due to COVID-19 virus: Status: Acute (2) Altered mental status: Qualifiers: Altered mental status type: stupor Qualified Code(s): R40.1 - Stupor Status: Acute (3) Acute renal failure: Qualifiers: Acute renal failure type: with acute tubular necrosis Qualified Code(s): N17.0 - Acute kidney failure with tubular necrosis Status: Acute (4) Metabolic acidosis: Status: Acute (5) Diabetic ketoacidosis: Status: Acute (6) Acute respiratory failure with hypoxia: Status: Acute (7) Septic shock: Status: Acute (8) ARDS (adult respiratory distress syndrome): Status: Acute Aggressive fluid replacement which will include a bicarbonate drip until the bicarb is at least better than seven an insulin drip will be started he was completely cultured including sputum and empiric dose of ceftriaxone and doxycycline were given but this appears to be viral knowing that this is COVID- 19 will at least transfuse 1 unit of convalescent plasma at this point and 1 dose of Decadron has already been given and we will measure central venous pressure to gauge his volume replacement
[2020-03-26 13:31] LABS: Reflex Lactate? Lactic Acid Added
--- NOTE | 2020-03-26 13:38 | W.PM.CCHP ---
Procedures Central Line Placement Left IJ: Central Line Comments: Emergent placement of line because of need for I inotropic and pressure pressor support performed after sterile preparation and draping utilizing left internal jugular vein gained easy entry under ultrasound guidance passing retrograde with Seldinger technique AJ point guidewire over which a 20 cm length triple-lumen catheter was placed to the tip at the superior vena cava corroborated by chest x-ray and uncomplicated procedure without blood loss Consent for Procedure: Emergent-no informed consent obtained Time out performed: Yes Sterile Technique Used: Yes Patient placed on monitor/pulse ox: Yes prep: mask, gown and gloves Central line prep: Chlorhexidine scrub Ultrasound used for placement: Yes Central line lumen inserted: triple Post procedure: sutured in place, good blood return, all ports aspirated, flushed, capped and sterile dressing applied Post procedure x-ray: tip of catheter in good position and no pneumothorax seen Patient tolerated procedure: well and no complications Complications: none
--- NOTE | 2020-03-26 13:39 | W.PM.CCHP ---
Procedures Intubation Intubation Comments: Intubation performed emergently for altered mental status and acute hypoxic respiratory failure without complication utilizing glide scope guidance excellent visualization of vocal cords ET tube placed at 24 cm at the lip and secured and confirmed by chest x-ray and end-tidal CO2 Consent for Procedure: Emergent-no informed consent obtained Time out performed: Yes Sedative: propofol Paralytic: rocuronium Laryngoscope: fiber optic video scope ET tube size: 8 ET tube uncuffed: No Tube secured depth (cm): 24 Tube secured location: lips Tube placement confirmation: visualized tube passing through cords, equal breath sounds bilaterally and confirmation by capnometry Patient tolerated procedure: well and no complications Intubation complications: none, hypotension and hypoxia
[2020-03-26] MEDS: Insulin Regular/NS 100 UNIT/100 ML PLAST..BAG IVCONT (13:43)
[2020-03-26] MEDS: Sodium Bicarbonate 8.4% 150 MEQ in Dextrose 5 % 850 ML 50 MEQ IVCONT (13:51)
--- NOTE | 2020-03-26 14:10 | PC.NURSE ---
PT placed from 100% o2 on vent to 80%, tolerating well.
[2020-03-26 14:31] LABS: PCO2 VBG 25 mmHg
--- NOTE | 2020-03-26 14:31 | PC.NURSE ---
back timed- V/o from director of enterprise applications to pull back 2cm on ET, now 24 at the lip
[2020-03-26 14:32] LABS: Base Excess VBG -25.9 mmol/L; HCO3 VBG 5 mmol/L; PO2 VBG 127 mmHg
[2020-03-26 14:33] LABS: pH VBG 6.92 (7.32-7.43)
[2020-03-26 15:00] LABS: Acetone, serum QL Large (Negative)
[2020-03-26 15:04] LABS: Magnesium 2.9 mg/dL (1.6-2.6); Phosphorus 5.8 mg/dL (2.7-4.5)
[2020-03-26 15:15] LABS: Anion Gap 29 (12-20); Blood Urea Nitrogen 35 mg/dL (9-16); Calcium 7.7 mg/dL (8.4-10.2); Carbon Dioxide 7 mmol/L (22-29); Chloride 116 mmol/L (96-108); Creatinine Clr Calc Pharmacy 40.6; Estimated Glomerular Filt Rate 32; Glucose Random 370 mg/dL (60-115); Potassium 4.8 mmol/L (3.3-5.1); Sodium 147 mmol/L (135-145)
[2020-03-26 15:34] LABS: Glucose, Whole Blood 298 mg/dL (60-115)
[2020-03-26] MEDS: Enoxaparin Sodium 30 MG/0.3 ML SYRINGE SUBCUT (15:46)
[2020-03-26] MEDS: Chlorhexidine Gluc Oral Rinse 15 ML MOUTHWASH BUCCAL ×2 (15:46→21:59)
[2020-03-26 15:49] LABS: Lactic Acid 0.8 mmol/L (0.5-2.0)
[2020-03-26] MEDS: 0.9 % Sodium Chloride 1,000 ML 100 ML IVCONT (16:16)
[2020-03-26] MEDS: Sodium Bicarbonate 8.4% 50 MEQ/50 ML SYRINGE IVPUSH (16:16)
[2020-03-26 16:41] LABS: Glucose, Whole Blood 275 mg/dL (60-115)
[2020-03-26 16:56] LABS: HCO3 VBG 7 mmol/L; PCO2 VBG 22 mmHg; PO2 VBG 64 mmHg
[2020-03-26 16:57] LABS: Base Excess VBG -21.1 mmol/L
[2020-03-26 17:01] LABS: pH VBG 7.08 (7.32-7.43)
[2020-03-26 17:08] LABS: Glucose, Whole Blood 272 mg/dL (60-115)
[2020-03-26 17:21] LABS: Amphetamine Screen Urine Not Detected (Not Detect); Barbiturates, Urine Not Detected (Not Detect); Benzodiazepines Screen Urine Not Detected (Not Detect); Cannabinoid Screen Urine Not Detected (Not Detect); Cocaine Screen Urine Not Detected (Not Detect); Opiate Screen Urine Not Detected (Not Detect); Phencyclidine Screen Urine Not Detected (Not Detect)
[2020-03-26 17:35] LABS: Acetaminophen LAB < 1 mcg/mL (<30); Anion Gap 24 (12-20); Blood Urea Nitrogen 38 mg/dL (9-16); Calcium 7.7 mg/dL (8.4-10.2); Carbon Dioxide 11 mmol/L (22-29); Chloride 115 mmol/L (96-108); Creatinine Clr Calc Pharmacy 38.6; Estimated Glomerular Filt Rate 30; Glucose Random 298 mg/dL (60-115); Potassium 4.3 mmol/L (3.3-5.1); Salicylate < 5.0 mg/dL (15-30); Sodium 146 mmol/L (135-145)
[2020-03-26 18:10] LABS: Glucose, Whole Blood 267 mg/dL (60-115)
[2020-03-26] MEDS: Levothyroxine Sodium 100 MCG VIAL 50 MCG IVPUSH (18:26)
[2020-03-26 19:28] LABS: Glucose, Whole Blood 205 mg/dL (60-115)
--- NOTE | 2020-03-26 19:30 | PC.NURSE ---
Patient arrived in ICU from ED at approximately 1500. Patient was already vented and central line placed. OGT was not seen on CXR and needs to be replaced. Patient on Levophed and vasopressin for goal Map >65. Patient on propofol for sedation. NaHCO3 infusing for acidemia. Patient on insulin gtt for DKA. Minimal output from mg catheter (25 mL/hr). CVP 11. Will continue to monitor.
[2020-03-26 20:01] LABS: Base Excess VBG -17.1 mmol/L; HCO3 VBG 8 mmol/L; PCO2 VBG 21 mmHg; PO2 VBG 52 mmHg
[2020-03-26 20:25] LABS: Glucose, Whole Blood 200 mg/dL (60-115)
[2020-03-26 20:27] LABS: Lactic Acid 1.2 mmol/L (0.5-2.0)
[2020-03-26 20:34] LABS: Calcium 7.7 mg/dL (8.4-10.2)
[2020-03-26 20:54] LABS: Anion Gap 23 (12-20); Blood Urea Nitrogen 38 mg/dL (9-16); Calcium 7.8 mg/dL (8.4-10.2); Carbon Dioxide 11 mmol/L (22-29); Chloride 117 mmol/L (96-108); Creatinine Clr Calc Pharmacy 41.4; Estimated Glomerular Filt Rate 33; Glucose Random 218 mg/dL (60-115); Magnesium 2.6 mg/dL (1.6-2.6); Phosphorus 2.7 mg/dL (2.7-4.5); Potassium 4.3 mmol/L (3.3-5.1); Sodium 147 mmol/L (135-145)
[2020-03-26] MEDS: propofoL 1,000 MG/100 ML VIAL 17.43 MG IVCONT (21:11)
[2020-03-26 21:15] LABS: Glucose, Whole Blood 172 mg/dL (60-115)
[2020-03-26 21:43] LABS: Base Excess VBG -15.5 mmol/L; HCO3 VBG 9 mmol/L; PCO2 VBG 21 mmHg; PO2 VBG 63 mmHg; pH VBG 7.24 (7.32-7.43)
[2020-03-26] MEDS: Famotidine/PF 20 MG/2 ML VIAL IVPUSH (21:59)
[2020-03-26] MEDS: Lactated Ringers 1,000 ML 100 ML IVCONT (22:05)
[2020-03-26 22:14] LABS: Glucose, Whole Blood 154 mg/dL (60-115)
[2020-03-26 22:19] LABS: Anion Gap 25 (12-20); Blood Urea Nitrogen 38 mg/dL (9-16); Calcium 7.7 mg/dL (8.4-10.2); Carbon Dioxide 11 mmol/L (22-29); Chloride 117 mmol/L (96-108); Creatinine Clr Calc Pharmacy 42.8; Estimated Glomerular Filt Rate 34; Glucose Random 186 mg/dL (60-115); Magnesium 2.5 mg/dL (1.6-2.6); Phosphorus 2.2 mg/dL (2.7-4.5); Potassium 4.3 mmol/L (3.3-5.1); Sodium 149 mmol/L (135-145)
[2020-03-26 22:56] LABS: Glucose, Whole Blood 177 mg/dL (60-115)
[2020-03-26] MEDS: Dextrose 5 % and Lactated Ring 1,000 ML 125 ML IVCONT (22:59)
[2020-03-27] VITALS (35 sets, daily range): BP systolic 90–165; BP diastolic 56–110; PULSE 65–122; RESP 18–41; TEMP 36.2–39.8; O2SAT 88–98; BMI 30.7
[2020-03-27 00:19] LABS: Glucose, Whole Blood 345 mg/dL (60-115)
[2020-03-27 00:20] LABS: Base Excess VBG -13.5 mmol/L; HCO3 VBG 10 mmol/L; PCO2 VBG 22 mmHg; PO2 VBG 50 mmHg; pH VBG 7.29 (7.32-7.43)
[2020-03-27 00:49] LABS: Glucose, Whole Blood 173 mg/dL (60-115)
[2020-03-27 00:50] LABS: Anion Gap 23 (12-20); Blood Urea Nitrogen 36 mg/dL (9-16); Calcium 7.5 mg/dL (8.4-10.2); Carbon Dioxide 12 mmol/L (22-29); Chloride 117 mmol/L (96-108); Creatinine Clr Calc Pharmacy 47.5; Estimated Glomerular Filt Rate 39; Glucose Random 179 mg/dL (60-115); Magnesium 2.4 mg/dL (1.6-2.6); Phosphorus 2.2 mg/dL (2.7-4.5); Potassium 4.1 mmol/L (3.3-5.1); Sodium 148 mmol/L (135-145)
[2020-03-27] MEDS: Insulin Regular/NS 100 UNIT/100 ML PLAST..BAG IVCONT (01:40)
[2020-03-27 02:33] LABS: Glucose, Whole Blood 177 mg/dL (60-115)
[2020-03-27] MEDS: propofoL 1,000 MG/100 ML VIAL 17.43 MG IVCONT ×2 (02:44→06:29)
[2020-03-27 03:04] LABS: Glucose, Whole Blood 171 mg/dL (60-115)
[2020-03-27] MEDS: Rocuronium Bromide 50 MG/5 ML VIAL 40 MG IVPUSH ×3 (03:25→07:04)
[2020-03-27 05:04] LABS: Glucose, Whole Blood 141 mg/dL (60-115)
[2020-03-27] MEDS: Chlorhexidine Gluc Oral Rinse 15 ML MOUTHWASH BUCCAL ×3 (05:09→20:20)
[2020-03-27 05:29] LABS: MANUAL DIFF FLAG NO
[2020-03-27 05:31] LABS: Base Excess VBG -9.1 mmol/L; HCO3 VBG 15 mmol/L; PCO2 VBG 31 mmHg; PO2 VBG 67 mmHg
[2020-03-27 05:35] LABS: Basophils Percent Auto 0.1 % (0-2); Hematocrit 38.3 % (42-52); Hemoglobin 12.8 g/dl (14.0-18.0); Imm Gran Abs Auto 0.26 X10*3/uL (0.00-0.03); Imm Gran Pct Auto 1.5 % (0.0-0.4); Lymphocytes Percent Auto 5.7 % (20-40); Mean Corpuscular HGB Conc 33.4 g/dl (31.0-36.0); Mean Corpuscular Hemoglobin 28.1 pg (27.0-33.0); Mean Corpuscular Volume 84.2 fL (80-98); Mean Platelet Volume 9.6 fL (9.4-12.4); Monocytes Absolute Auto 1.1 X10*3/uL (0.1-1.2); Monocytes Percent Auto 5.9 % (2-11); Neutrophils Absolute Auto 15.5 X10*3/uL (2.0-8.3); Neutrophils Percent Auto 86.8 % (45-73); Platelet Count 341 X10*3/uL (160-400); Red Blood Count 4.55 X10*6/uL (4.60-5.80); Red Cell Distribution Width 14.9 % (11.0-16.0); White Blood Count 17.9 X10*3/uL (4.8-10.8)
--- NOTE | 2020-03-27 05:38 | PC.NURSE ---
ASSUMED CARE OF PT AT 1900. PT ON AC VENT SETTINGS AND WAS ABLE TO WEAN FIO2 DOWN TO 40^ FROM 60%. O2 SAT MID TO UPPER 90'S. ON PROPOFOL FOR SEDATION. NEEDED 2 DOSES OF ROCURONIUM 40 MG IV FOR VENT SYNCHRONY . NOT SUCTIONING MUCH FROM ETT JUST SCANT AMT OF WHITE SPUTUM. LUNGS DIM THROUGHOUT ALL HEBERT. LABS DRAWN TLC AT 2140 AND 0013 FOR VBG AND CHEM PROFILE AND REVIEWED BY VERONICA HARDEN. PH IS IMPROVING WAS 7.29 AT 0013 AND AT 0515 PH WAS 7.3. PT RECEIVING BICARB DRIP ORDERED. BP STABLE ON LEVOPHED AND VASOPRESSIN. INSULIN DRIP PER DKA PROTOCOL AND VERONICA KONG OVERSEEING EACH POC. MONITOR SHOWS SR-ST, 90'S-LOW 100'S, NO ECTOPY. U/O IS GOOD 50-100 ML/HR. CVP 10. OGT PLACED AND VERIFIED WITH PCXR VIEWED BY VERONICA KONG.
[2020-03-27 05:54] LABS: D Dimer 562 NG/ML
[2020-03-27 05:59] LABS: Anion Gap 19 (12-20); Blood Urea Nitrogen 31 mg/dL (9-16); C Reactive Protein 20.53 mg/dL (< or = 0.50); Calcium 7.6 mg/dL (8.4-10.2); Carbon Dioxide 17 mmol/L (22-29); Chloride 116 mmol/L (96-108); Creatinine Clr Calc Pharmacy 50.3; Estimated Glomerular Filt Rate 41; Glucose Random 146 mg/dL (60-115); Lactate Dehydrogenase 321 U/L (118-273); Magnesium 2.1 mg/dL (1.6-2.6); Phosphorus 2.5 mg/dL (2.7-4.5); Potassium 3.9 mmol/L (3.3-5.1); Sodium 148 mmol/L (135-145)
[2020-03-27 06:04] LABS: Glucose, Whole Blood 127 mg/dL (60-115)
[2020-03-27 06:21] LABS: Ferritin 663 ng/mL (20-250)
[2020-03-27 06:50] LABS: Glucose, Whole Blood 143 mg/dL (60-115)
[2020-03-27 07:13] LABS: Glucose, Whole Blood 420 mg/dL (60-115)
[2020-03-27] MEDS: vancomycin HCL 1,000 MG in 0.9 % Sodium Chloride 250 ML 270 MG IV (07:29)
[2020-03-27] MEDS: KCl 20 mEq in 5% Dex/0.45% Sod 20 MEQ/1,000 ML IV.SOLN 80 MEQ IVCONT ×2 (07:30→18:27)
[2020-03-27 08:06] LABS: Glucose, Whole Blood 131 mg/dL (60-115)
[2020-03-27] MEDS: dexAMETHasone sod phosphate 4 MG/ML VIAL 6 MG IVPUSH (08:25)
[2020-03-27] MEDS: Famotidine/PF 20 MG/2 ML VIAL IVPUSH ×2 (08:26→20:20)
[2020-03-27 09:09] LABS: Glucose, Whole Blood 145 mg/dL (60-115)
[2020-03-27 10:05] LABS: Glucose, Whole Blood 141 mg/dL (60-115)
[2020-03-27] MEDS: Midazolam HCl/PF 2 MG/2 ML VIAL 3 MG IVPUSH ×2 (10:12→12:19)
[2020-03-27] MEDS: propofoL 1,000 MG/100 ML VIAL 24.9 MG IVCONT ×4 (10:18→20:20)
--- NOTE | 2020-03-27 10:21 | MHC.CLN ---
RECOMMEND TF GLUCERNA AT MAX GOAL RATE 50CC/HR TO PROVIDE 1200KCALS (1857 WITH SEDATION; 24KCALS/KG BASED ON CMW), 50G PROTEIN (.6G/KG), 1024CC FREE WATER FROM FORMULA MONITOR TOLERANCE, RESIDUALS AND LYTES
[2020-03-27 11:01] LABS: Glucose, Whole Blood 152 mg/dL (60-115)
[2020-03-27 12:05] LABS: PCO2 VBG 25 mmHg; pH VBG 7.41 (7.32-7.43)
[2020-03-27 12:06] LABS: Base Excess VBG -6.4 mmol/L; HCO3 VBG 16 mmol/L; PO2 VBG 40 mmHg
[2020-03-27 12:14] LABS: Glucose, Whole Blood 121 mg/dL (60-115)
[2020-03-27 12:30] LABS: Anion Gap 17 (12-20); Blood Urea Nitrogen 26 mg/dL (9-16); Calcium 7.2 mg/dL (8.4-10.2); Carbon Dioxide 17 mmol/L (22-29); Chloride 116 mmol/L (96-108); Creatinine Clr Calc Pharmacy 64.2; Estimated Glomerular Filt Rate 52; Glucose Random 167 mg/dL (60-115); Potassium 3.5 mmol/L (3.3-5.1); Sodium 146 mmol/L (135-145)
[2020-03-27] MEDS: Midazolam HCl/NS 50 MG/50 ML PLAST..BAG IVCONT ×2 (12:44→15:20)
--- NOTE | 2020-03-27 13:02 | MHC.CM.PN ---
Attempted to meet with patient in regards to discharge planning. Patient currently intubated/vented in ICU. Patient is positive for Covid. Per Dr Stewart, patient was in the ER on 03/25 on high flow oxygen. Anticipate was encouraged at that time. However. patient stated he needed to care for his father that also has Covid. [place] [facility] [place] after father found patient unresponsive. Spoke with patient's father, Heratch via telephone [phone]. Patient lives with Heratch and his , ambulates independently and had no services prior to coming to the hospital. PCP is in [place]. 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 Patient's mother is currently in [facility] with Covid. Heratch is quarantining at home and is also positive for Covid. At this time, case management assessment completed with this information and medical record. Discharge plan is unable to be determined at this time. Physical therapy eval may be needed for home safety when medically stable. Continue to monitor for d/c needs.
[2020-03-27 13:24] LABS: Glucose, Whole Blood 162 mg/dL (60-115)
[2020-03-27] MEDS: Enoxaparin Sodium 30 MG/0.3 ML SYRINGE SUBCUT (13:47)
[2020-03-27 14:30] LABS: Glucose, Whole Blood 183 mg/dL (60-115)
--- NOTE | 2020-03-27 15:05 | W.PM.IDCN ---
History of Present Illness Data of Consult Service Date: 03/27/20 Requesting physician: Leena Stewart Primary Care Provider: Unknown Physician HPI Reason for consult: patchy lung densities He presents to hospital with shortness of breath for two days He had come to ER 03/25 and left against medical recommendation. He was discharged with azithromycin and decadron He comes in again on 03/26 and is admitted to ICU and intubated. CXR shows fluffy densities throughout as well as CT scan and there is no PE He has no reports of purulent sputum His mother has COVID He did receive dose of Merepenem. Review of Systems Review of Systems: Yes unobtainable due to endotracheal tube PMFSH Past Medical History Medical History Bronchitis HTN (hypertension) Hyperlipemia Social History Social History Household Members: Unknown / Unable to assess Housing: Unknown / Unable to assess Alcohol intake: unknown Smoking Status: Unknown if ever smoked service: No Current occupational status: employed Meds Allergies Allergy/AdvReac Type Severity Reaction Status Date / Time Penicillins [PENICILLINS] Allergy Unknown ANAPHYLAXIS Unverified 10/31/19 19:50 Active Medications: Current Medications Generic Name Dose Route Start Last Admin Trade Name Cheleq PRN Reason Stop Dose Admin Chlorhexidine Gluconate 15 ml 03/26/20 13:30 03/27/20 12:45 Chlorhexidine Gluc Oral Rinse 15 Ml Mouthwash BUCCAL 15 ml Q8H FELIPE Administration Dexamethasone Sodium Phosphate 6 mg 03/27/20 09:00 03/27/20 08:25 Dexamethasone Sod Phosphate 4 Mg/Ml Vial IVPUSH 6 mg DAILY FELIPE Administration Enoxaparin Sodium 30 mg 03/26/20 14:00 03/27/20 13:47 Enoxaparin Sodium 30 Mg/0.3 Ml Syringe SUBCUT 30 mg Q24H FELIPE Administration Famotidine 20 mg 03/26/20 21:00 03/27/20 08:26 Famotidine/Pf 20 Mg/2 Ml Vial IVPUSH 20 mg BID FELIPE Administration Propofol 1,000 mg in 100 mls @ 0 mls/hr 03/26/20 12:00 03/27/20 13:48 Diprivan IVCONT 50 mcg/kg/min .Q0M FELIPE 24.9 mls/hr Administration Protocol Per Protocol Insulin Human Regular 100 unit in 100 mls @ 5 mls/hr 03/26/20 13:30 03/27/20 06:32 Myxredlin IVCONT 1.5 mls/hr .Q20H FELIPE Titration Protocol Norepinephrine Bitartrate 8 mg in 250 mls @ 0 mls/hr 03/26/20 13:30 03/27/20 08:54 Levophed IVCONT 0.08 mcg/kg/min .Q0M FELIPE 12.45 mls/hr Titration Protocol Per Protocol Vasopressin 20 unit/ Sodium 101 mls @ 12.12 mls/hr 03/26/20 16:30 03/27/20 13:47 Chloride IVCONT 0.04 unit/min .Q8H20M FELIPE 12.12 mls/hr Administration 0.04 UNIT/MIN Potassium Chloride/Dextrose/Sod Cl 20 meq in 1,000 mls @ 80 mls/hr 03/27/20 06:30 03/27/20 07:30 IVCONT 80 mls/hr .[id number] FELIPE Administration Midazolam HCl 50 mg in 50 mls @ 0 mls/hr 03/27/20 15:00 Versed IVCONT .Q0M FELIPE Protocol Doxycycline Hyclate 100 mg/ 250 mls @ 166.67 mls/hr 03/27/20 18:00 Sodium Chloride IV Q12H FELIPE Levothyroxine Sodium 50 mcg 03/26/20 17:00 03/26/20 18:26 Levothyroxine Sodium 100 Mcg Vial IVPUSH 50 mcg DAILY@1700 [facility] Administration Pharmacy Consult 1 each 03/26/20 12:12 Consult Rx Perform Med Rec MISCELLANE ONCE PRN Consult order Home Medications Medication Instructions Recorded Confirmed Last Taken Type aspirin 81 mg PO DAILY 03/25/20 03/26/20 Unknown History atorvastatin 20 mg PO DAILY 03/25/20 03/26/20 Unknown History dulaglutide [Trulicity] 1.5 mg SUBCUT QWEEK 03/25/20 03/26/20 Unknown History empagliflozin [Jardiance] 10 mg PO DAILY 03/25/20 03/26/20 Unknown History levothyroxine 75 mcg PO DAILY 03/25/20 03/26/20 Unknown History lisinopril 2.5 mg PO DAILY 03/25/20 03/26/20 Unknown History metformin 1,000 mg PO BID 03/25/20 03/26/20 Unknown History Physical Exam Vital Signs: Vital Signs: Last Vital Signs Temp 97.9 F 03/27/20 14:00 Pulse 85 03/27/20 14:00 Resp 33 H 03/27/20 14:00 BP 122/93 H 03/27/20 14:00 Pulse Ox 92 03/27/20 14:00 Body Mass Index 30.7 Const: General: cooperative HENMT: Head: Yes normal to inspection Mouth: Normal oral and palatal mucosa present Eyes: General: appearance normal, both eyes and all related structures Resp: Effort & Inspection: normal respiratory effort Cardio: Rate: regular rate Rhythm: regular rhythm GI: Palpation (GI): Soft to palpation and nontender : General: Yes no CVA tenderness Back/Spine/Pelvis: Back: no CVA tenderness Skin: General skin exam: no rashes or lesions noted Neuro: General: Unable to assess gait Gait exam (Neuro): Unable to assess gait Results Labs CBC & Chem 7: 03/27/20 05:15 03/27/20 11:45 Labs: Short CBC 03/27/20 Range/Units 05:15 WBC 17.9 H (4.8-10.8) X10*3/uL Hgb 12.8 L (14.0-18.0) g/dl Hct 38.3 L (42-52) % Plt Count 341 (160-400) X10*3/uL BMP 03/26/20 03/26/20 03/26/20 14:22 16:39 19:51 Sodium 147 H 146 H 147 H Potassium 4.8 4.3 4.3 Chloride 116 H 115 H 117 H Carbon Dioxide 7 L* 11 L 11 L BUN 35 H 38 H 38 H Creatinine 2.13 H 2.24 H 2.09 H Calcium 7.7 L D 7.7 L 7.8 L 03/26/20 03/26/20 03/27/20 19:54 21:30 00:13 Sodium 149 H 148 H Potassium 4.3 4.1 Chloride 117 H 117 H Carbon Dioxide 11 L 12 L BUN 38 H 36 H Creatinine 2.02 H 1.82 H Calcium 7.7 L 7.7 L 7.5 L 03/27/20 03/27/20 05:15 11:45 Sodium 148 H 146 H Potassium 3.9 3.5 Chloride 116 H 116 H Carbon Dioxide 17 L 17 L BUN 31 H 26 H Creatinine 1.72 H 1.41 H Calcium 7.6 L 7.2 L Microbiology Microbiology Results: Microbiology 03/26/20 11:20 Blood - Venous Blood Culture - Preliminary No growth after 24 hours. 03/26/20 11:20 Blood - Venous Blood Culture - Preliminary No growth after 24 hours. 03/26/20 15:51 Urine clean catch - Rutledge Catheter Urine Culture - Preliminary No growth to date. 03/26/20 15:51 Sputum - Suctioned Gram Stain - Final 03/26/20 15:51 Sputum - Suctioned Sputum Culture - Preliminary No growth to date. Assessment and Plan (1) ARDS (adult respiratory distress syndrome): Problem details: He has likely COVID pneumonia Procalcitonin is not as helpful in renal failure Less likely any additional atypical pneumonia Status: Acute (2) Septic shock: Problem details: Dexamethasone Would hold Remdesivir due to creatinine clearance fluctuating and now 30. Status: Acute Dexamethasone No Remdesivir No indication for Merem or Vancomycin at this time as COVID pneumonias not usually superinfection early on but can give Doxycycline ?atypical while waiting for results
[2020-03-27 15:06] LABS: Glucose, Whole Blood 175 mg/dL (60-115)
[2020-03-27 15:52] LABS: Glucose, Whole Blood 181 mg/dL (60-115)
--- NOTE | 2020-03-27 15:58 | P.PNCC_ITS ---
Subjective Subjective Date of Service: 03/27/20 Interval History: 54-year-old man admitted in septic shock with altered mental status and acute hypoxic respiratory failure from bilateral COVID-19 pneumonitis/ARDS currently on vasopressin and Levophed for blood pressure support but maintaining urine output and he presented with acute on chronic stage III renal failure but he is nonoliguric and renal function is clinically improving and currently euvolemic with the central venous pressure of approximately 9-10 requiring sedation with both propofol and Versed because if he awakens agitated instantly becomes tachypneic and then he develops auto PEEP Physical Exam Vital Signs: Vital Signs: Last Vital Signs Temp 98.4 F 03/27/20 15:00 Pulse 80 03/27/20 15:00 Resp 24 H 03/27/20 15:00 BP 105/72 03/27/20 15:00 Pulse Ox 91 L 03/27/20 15:00 Body Mass Index 30.7 Const: Other: Sedated and intubated on pressure control with respiratory rate of 24 tidal volumes that he seeks are approximately 600 cc with oxygen saturation of 93% on an FiO2 now of 40% Neurologically has no focality and has good bilateral movement Coarse ventilatory breath sounds Cardiac exam with no gallops no murmurs Skin still demonstrates livedo but no acrocyanosis the warmer better perfused with palpable peripheral pulses Objective Data Labs CBC & Chem 7: 03/27/20 05:15 03/27/20 11:45 Labs: Laboratory Results - last 24 hr 03/26/20 03/26/20 03/26/20 12:48 13:36 14:22 WBC RBC Hgb Hct MCV MCH MCHC RDW Plt Count MPV Immature Gran % (Auto) Neut % (Auto) Lymph % (Auto) [place] % (Auto) Eos % (Auto) Baso % (Auto) Lymph # (Auto) [place] # (Auto) Eos # (Auto) Baso # (Auto) Abs Immat Gran (auto) Absolute Neuts (auto) Absolute Nucleated RBC Nucleated RBC % (auto) D-Dimer VBG pH VBG pCO2 VBG pO2 VBG HCO3 VBG O2 Saturation VBG Base Excess Sodium Potassium Chloride Carbon Dioxide Anion Gap BUN Creatinine Estim Creat Clear Calc Estimated GFR POC Glucose 420 H* 345 H Random Glucose Lactic Acid Lactic Acid Fup @ 2Hr Calcium Phosphorus Magnesium Ferritin Lactate Dehydrogenase C-Reactive Protein Salicylates Urine Opiates Screen Acetaminophen Ur Barbiturates Screen Ur Phencyclidine Scrn Ur Amphetamines Screen U Benzodiazepines Scrn Urine Cocaine Screen U Marijuana (THC) Screen Blood Type A Positive Antibody Screen NEGATIVE 03/26/20 03/26/20 03/26/20 14:23 15:51 16:01 WBC RBC Hgb Hct MCV MCH MCHC RDW Plt Count MPV Immature Gran % (Auto) Neut % (Auto) Lymph % (Auto) [place] % (Auto) Eos % (Auto) Baso % (Auto) Lymph # (Auto) [place] # (Auto) Eos # (Auto) Baso # (Auto) Abs Immat Gran (auto) Absolute Neuts (auto) Absolute Nucleated RBC Nucleated RBC % (auto) D-Dimer VBG pH VBG pCO2 VBG pO2 VBG HCO3 VBG O2 Saturation VBG Base Excess Sodium Potassium Chloride Carbon Dioxide Anion Gap BUN Creatinine Estim Creat Clear Calc Estimated GFR POC Glucose 275 H Random Glucose Lactic Acid Lactic Acid Fup @ 2Hr Cancelled Calcium Phosphorus Magnesium Ferritin Lactate Dehydrogenase C-Reactive Protein Salicylates Urine Opiates Screen Not Detected Acetaminophen Ur Barbiturates Screen Not Detected Ur Phencyclidine Scrn Not Detected Ur Amphetamines Screen Not Detected U Benzodiazepines Scrn Not Detected Urine Cocaine Screen Not Detected U Marijuana (THC) Screen Not Detected Blood Type Antibody Screen 03/26/20 03/26/20 03/26/20 16:39 16:39 17:05 WBC RBC Hgb Hct MCV MCH MCHC RDW Plt Count MPV Immature Gran % (Auto) Neut % (Auto) Lymph % (Auto) [place] % (Auto) Eos % (Auto) Baso % (Auto) Lymph # (Auto) [place] # (Auto) Eos # (Auto) Baso # (Auto) Abs Immat Gran (auto) Absolute Neuts (auto) Absolute Nucleated RBC Nucleated RBC % (auto) D-Dimer VBG pH 7.08 L* VBG pCO2 22 VBG pO2 64 VBG HCO3 7 VBG O2 Saturation 89.0 VBG Base Excess -21.1 Sodium 146 H Potassium 4.3 Chloride 115 H Carbon Dioxide 11 L Anion Gap 24 H BUN 38 H Creatinine 2.24 H Estim Creat Clear Calc 38.6 Estimated GFR 30 POC Glucose 272 H Random Glucose 298 H Lactic Acid Lactic Acid Fup @ 2Hr Calcium 7.7 L Phosphorus Magnesium Ferritin Lactate Dehydrogenase C-Reactive Protein Salicylates < 5.0 L Urine Opiates Screen Acetaminophen < 1 Ur Barbiturates Screen Ur Phencyclidine Scrn Ur Amphetamines Screen U Benzodiazepines Scrn Urine Cocaine Screen U Marijuana (THC) Screen Blood Type Antibody Screen 03/26/20 03/26/20 03/26/20 18:01 19:22 19:50 WBC RBC Hgb Hct MCV MCH MCHC RDW Plt Count MPV Immature Gran % (Auto) Neut % (Auto) Lymph % (Auto) [place] % (Auto) Eos % (Auto) Baso % (Auto) Lymph # (Auto) [place] # (Auto) Eos # (Auto) Baso # (Auto) Abs Immat Gran (auto) Absolute Neuts (auto) Absolute Nucleated RBC Nucleated RBC % (auto) D-Dimer VBG pH 7.20 L* VBG pCO2 21 VBG pO2 52 VBG HCO3 8 VBG O2 Saturation 82.0 VBG Base Excess -17.1 Sodium Potassium Chloride Carbon Dioxide Anion Gap BUN Creatinine Estim Creat Clear Calc Estimated GFR POC Glucose 267 H 205 H Random Glucose Lactic Acid Lactic Acid Fup @ 2Hr Calcium Phosphorus Magnesium Ferritin Lactate Dehydrogenase C-Reactive Protein Salicylates Urine Opiates Screen Acetaminophen Ur Barbiturates Screen Ur Phencyclidine Scrn Ur Amphetamines Screen U Benzodiazepines Scrn Urine Cocaine Screen U Marijuana (THC) Screen Blood Type Antibody Screen 03/26/20 03/26/20 03/26/20 19:51 19:51 19:54 WBC RBC Hgb Hct MCV MCH MCHC RDW Plt Count MPV Immature Gran % (Auto) Neut % (Auto) Lymph % (Auto) [place] % (Auto) Eos % (Auto) Baso % (Auto) Lymph # (Auto) [place] # (Auto) Eos # (Auto) Baso # (Auto) Abs Immat Gran (auto) Absolute Neuts (auto) Absolute Nucleated RBC Nucleated RBC % (auto) D-Dimer VBG pH VBG pCO2 VBG pO2 VBG HCO3 VBG O2 Saturation VBG Base Excess Sodium 147 H Potassium 4.3 Chloride 117 H Carbon Dioxide 11 L Anion Gap 23 H BUN 38 H Creatinine 2.09 H Estim Creat Clear Calc 41.4 Estimated GFR 33 POC Glucose Random Glucose 218 H Lactic Acid 1.2 Lactic Acid Fup @ 2Hr Calcium 7.8 L 7.7 L Phosphorus 2.7 Magnesium 2.6 Ferritin Lactate Dehydrogenase C-Reactive Protein Salicylates Urine Opiates Screen Acetaminophen Ur Barbiturates Screen Ur Phencyclidine Scrn Ur Amphetamines Screen U Benzodiazepines Scrn Urine Cocaine Screen U Marijuana (THC) Screen Blood Type Antibody Screen 03/26/20 03/26/20 03/26/20 20:20 21:10 21:30 WBC RBC Hgb Hct MCV MCH MCHC RDW Plt Count MPV Immature Gran % (Auto) Neut % (Auto) Lymph % (Auto) [place] % (Auto) Eos % (Auto) Baso % (Auto) Lymph # (Auto) [place] # (Auto) Eos # (Auto) Baso # (Auto) Abs Immat Gran (auto) Absolute Neuts (auto) Absolute Nucleated RBC Nucleated RBC % (auto) D-Dimer VBG pH VBG pCO2 VBG pO2 VBG HCO3 VBG O2 Saturation VBG Base Excess Sodium 149 H Potassium 4.3 Chloride 117 H Carbon Dioxide 11 L Anion Gap 25 H BUN 38 H Creatinine 2.02 H Estim Creat Clear Calc 42.8 Estimated GFR 34 POC Glucose 200 H 172 H Random Glucose 186 H Lactic Acid Lactic Acid Fup @ 2Hr Calcium 7.7 L Phosphorus 2.2 L Magnesium 2.5 Ferritin Lactate Dehydrogenase C-Reactive Protein Salicylates Urine Opiates Screen Acetaminophen Ur Barbiturates Screen Ur Phencyclidine Scrn Ur Amphetamines Screen U Benzodiazepines Scrn Urine Cocaine Screen U Marijuana (THC) Screen Blood Type Antibody Screen 03/26/20 03/26/20 03/26/20 21:30 22:07 22:50 WBC RBC Hgb Hct MCV MCH MCHC RDW Plt Count MPV Immature Gran % (Auto) Neut % (Auto) Lymph % (Auto) [place] % (Auto) Eos % (Auto) Baso % (Auto) Lymph # (Auto) [place] # (Auto) Eos # (Auto) Baso # (Auto) Abs Immat Gran (auto) Absolute Neuts (auto) Absolute Nucleated RBC Nucleated RBC % (auto) D-Dimer VBG pH 7.24 L VBG pCO2 21 VBG pO2 63 VBG HCO3 9 VBG O2 Saturation 89.0 VBG Base Excess -15.5 Sodium Potassium Chloride Carbon Dioxide Anion Gap BUN Creatinine Estim Creat Clear Calc Estimated GFR POC Glucose 154 H 177 H Random Glucose Lactic Acid Lactic Acid Fup @ 2Hr Calcium Phosphorus Magnesium Ferritin Lactate Dehydrogenase C-Reactive Protein Salicylates Urine Opiates Screen Acetaminophen Ur Barbiturates Screen Ur Phencyclidine Scrn Ur Amphetamines Screen U Benzodiazepines Scrn Urine Cocaine Screen U Marijuana (THC) Screen Blood Type Antibody Screen 03/27/20 03/27/20 03/27/20 00:13 00:13 00:16 WBC RBC Hgb Hct MCV MCH MCHC RDW Plt Count MPV Immature Gran % (Auto) Neut % (Auto) Lymph % (Auto) [place] % (Auto) Eos % (Auto) Baso % (Auto) Lymph # (Auto) [place] # (Auto) Eos # (Auto) Baso # (Auto) Abs Immat Gran (auto) Absolute Neuts (auto) Absolute Nucleated RBC Nucleated RBC % (auto) D-Dimer VBG pH 7.29 L VBG pCO2 22 VBG pO2 50 VBG HCO3 10 VBG O2 Saturation 85.0 VBG Base Excess -13.5 Sodium 148 H Potassium 4.1 Chloride 117 H Carbon Dioxide 12 L Anion Gap 23 H BUN 36 H Creatinine 1.82 H Estim Creat Clear Calc 47.5 Estimated GFR 39 POC Glucose 173 H Random Glucose 179 H Lactic Acid Lactic Acid Fup @ 2Hr Calcium 7.5 L Phosphorus 2.2 L Magnesium 2.4 Ferritin Lactate Dehydrogenase C-Reactive Protein Salicylates Urine Opiates Screen Acetaminophen Ur Barbiturates Screen Ur Phencyclidine Scrn Ur Amphetamines Screen U Benzodiazepines Scrn Urine Cocaine Screen U Marijuana (THC) Screen Blood Type Antibody Screen 03/27/20 03/27/20 03/27/20 01:38 02:55 05:00 WBC RBC Hgb Hct MCV MCH MCHC RDW Plt Count MPV Immature Gran % (Auto) Neut % (Auto) Lymph % (Auto) [place] % (Auto) Eos % (Auto) Baso % (Auto) Lymph # (Auto) [place] # (Auto) Eos # (Auto) Baso # (Auto) Abs Immat Gran (auto) Absolute Neuts (auto) Absolute Nucleated RBC Nucleated RBC % (auto) D-Dimer VBG pH VBG pCO2 VBG pO2 VBG HCO3 VBG O2 Saturation VBG Base Excess Sodium Potassium Chloride Carbon Dioxide Anion Gap BUN Creatinine Estim Creat Clear Calc Estimated GFR POC Glucose 177 H 171 H 141 H Random Glucose Lactic Acid Lactic Acid Fup @ 2Hr Calcium Phosphorus Magnesium Ferritin Lactate Dehydrogenase C-Reactive Protein Salicylates Urine Opiates Screen Acetaminophen Ur Barbiturates Screen Ur Phencyclidine Scrn Ur Amphetamines Screen U Benzodiazepines Scrn Urine Cocaine Screen U Marijuana (THC) Screen Blood Type Antibody Screen 03/27/20 03/27/20 03/27/20 05:15 05:15 05:15 WBC 17.9 H RBC 4.55 L Hgb 12.8 L Hct 38.3 L MCV 84.2 D MCH 28.1 MCHC 33.4 RDW 14.9 Plt Count 341 MPV 9.6 Immature Gran % (Auto) 1.5 H Neut % (Auto) 86.8 H Lymph % (Auto) 5.7 L [place] % (Auto) 5.9 Eos % (Auto) 0.0 Baso % (Auto) 0.1 Lymph # (Auto) 1.0 L [place] # (Auto) 1.1 Eos # (Auto) 0.0 Baso # (Auto) 0.0 Abs Immat Gran (auto) 0.26 H Absolute Neuts (auto) 15.5 H Absolute Nucleated RBC 0.000 Nucleated RBC % (auto) 0.0 D-Dimer 562 VBG pH VBG pCO2 VBG pO2 VBG HCO3 VBG O2 Saturation VBG Base Excess Sodium 148 H Potassium 3.9 Chloride 116 H Carbon Dioxide 17 L Anion Gap 19 BUN 31 H Creatinine 1.72 H Estim Creat Clear Calc 50.3 Estimated GFR 41 POC Glucose Random Glucose 146 H Lactic Acid Lactic Acid Fup @ 2Hr Calcium 7.6 L Phosphorus 2.5 L Magnesium 2.1 Ferritin 663 H Lactate Dehydrogenase 321 H C-Reactive Protein 20.53 H Salicylates Urine Opiates Screen Acetaminophen Ur Barbiturates Screen Ur Phencyclidine Scrn Ur Amphetamines Screen U Benzodiazepines Scrn Urine Cocaine Screen U Marijuana (THC) Screen Blood Type Antibody Screen 03/27/20 03/27/20 03/27/20 05:15 06:00 06:46 WBC RBC Hgb Hct MCV MCH MCHC RDW Plt Count MPV Immature Gran % (Auto) Neut % (Auto) Lymph % (Auto) [place] % (Auto) Eos % (Auto) Baso % (Auto) Lymph # (Auto) [place] # (Auto) Eos # (Auto) Baso # (Auto) Abs Immat Gran (auto) Absolute Neuts (auto) Absolute Nucleated RBC Nucleated RBC % (auto) D-Dimer VBG pH 7.30 L VBG pCO2 31 VBG pO2 67 VBG HCO3 15 VBG O2 Saturation 93.0 VBG Base Excess -9.1 Sodium Potassium Chloride Carbon Dioxide Anion Gap BUN Creatinine Estim Creat Clear Calc Estimated GFR POC Glucose 127 H 143 H Random Glucose Lactic Acid Lactic Acid Fup @ 2Hr Calcium Phosphorus Magnesium Ferritin Lactate Dehydrogenase C-Reactive Protein Salicylates Urine Opiates Screen Acetaminophen Ur Barbiturates Screen Ur Phencyclidine Scrn Ur Amphetamines Screen U Benzodiazepines Scrn Urine Cocaine Screen U Marijuana (THC) Screen Blood Type Antibody Screen 03/27/20 03/27/20 03/27/20 07:56 09:06 10:02 WBC RBC Hgb Hct MCV MCH MCHC RDW Plt Count MPV Immature Gran % (Auto) Neut % (Auto) Lymph % (Auto) [place] % (Auto) Eos % (Auto) Baso % (Auto) Lymph # (Auto) [place] # (Auto) Eos # (Auto) Baso # (Auto) Abs Immat Gran (auto) Absolute Neuts (auto) Absolute Nucleated RBC Nucleated RBC % (auto) D-Dimer VBG pH VBG pCO2 VBG pO2 VBG HCO3 VBG O2 Saturation VBG Base Excess Sodium Potassium Chloride Carbon Dioxide Anion Gap BUN Creatinine Estim Creat Clear Calc Estimated GFR POC Glucose 131 H 145 H 141 H Random Glucose Lactic Acid Lactic Acid Fup @ 2Hr Calcium Phosphorus Magnesium Ferritin Lactate Dehydrogenase C-Reactive Protein Salicylates Urine Opiates Screen Acetaminophen Ur Barbiturates Screen Ur Phencyclidine Scrn Ur Amphetamines Screen U Benzodiazepines Scrn Urine Cocaine Screen U Marijuana (THC) Screen Blood Type Antibody Screen 03/27/20 03/27/20 03/27/20 10:57 11:45 11:45 WBC RBC Hgb Hct MCV MCH MCHC RDW Plt Count MPV Immature Gran % (Auto) Neut % (Auto) Lymph % (Auto) [place] % (Auto) Eos % (Auto) Baso % (Auto) Lymph # (Auto) [place] # (Auto) Eos # (Auto) Baso # (Auto) Abs Immat Gran (auto) Absolute Neuts (auto) Absolute Nucleated RBC Nucleated RBC % (auto) D-Dimer VBG pH 7.41 VBG pCO2 25 VBG pO2 40 VBG HCO3 16 VBG O2 Saturation 74.0 VBG Base Excess -6.4 Sodium 146 H Potassium 3.5 Chloride 116 H Carbon Dioxide 17 L Anion Gap 17 BUN 26 H Creatinine 1.41 H Estim Creat Clear Calc 64.2 Estimated GFR 52 POC Glucose 152 H Random Glucose 167 H Lactic Acid Lactic Acid Fup @ 2Hr Calcium 7.2 L Phosphorus Magnesium Ferritin Lactate Dehydrogenase C-Reactive Protein Salicylates Urine Opiates Screen Acetaminophen Ur Barbiturates Screen Ur Phencyclidine Scrn Ur Amphetamines Screen U Benzodiazepines Scrn Urine Cocaine Screen U Marijuana (THC) Screen Blood Type Antibody Screen 03/27/20 03/27/20 03/27/20 12:10 13:19 13:58 WBC RBC Hgb Hct MCV MCH MCHC RDW Plt Count MPV Immature Gran % (Auto) Neut % (Auto) Lymph % (Auto) [place] % (Auto) Eos % (Auto) Baso % (Auto) Lymph # (Auto) [place] # (Auto) Eos # (Auto) Baso # (Auto) Abs Immat Gran (auto) Absolute Neuts (auto) Absolute Nucleated RBC Nucleated RBC % (auto) D-Dimer VBG pH VBG pCO2 VBG pO2 VBG HCO3 VBG O2 Saturation VBG Base Excess Sodium Potassium Chloride Carbon Dioxide Anion Gap BUN Creatinine Estim Creat Clear Calc Estimated GFR POC Glucose 121 H 162 H 183 H Random Glucose Lactic Acid Lactic Acid Fup @ 2Hr Calcium Phosphorus Magnesium Ferritin Lactate Dehydrogenase C-Reactive Protein Salicylates Urine Opiates Screen Acetaminophen Ur Barbiturates Screen Ur Phencyclidine Scrn Ur Amphetamines Screen U Benzodiazepines Scrn Urine Cocaine Screen U Marijuana (THC) Screen Blood Type Antibody Screen 03/27/20 03/27/20 15:03 15:48 WBC RBC Hgb Hct MCV MCH MCHC RDW Plt Count MPV Immature Gran % (Auto) Neut % (Auto) Lymph % (Auto) [place] % (Auto) Eos % (Auto) Baso % (Auto) Lymph # (Auto) [place] # (Auto) Eos # (Auto) Baso # (Auto) Abs Immat Gran (auto) Absolute Neuts (auto) Absolute Nucleated RBC Nucleated RBC % (auto) D-Dimer VBG pH VBG pCO2 VBG pO2 VBG HCO3 VBG O2 Saturation VBG Base Excess Sodium Potassium Chloride Carbon Dioxide Anion Gap BUN Creatinine Estim Creat Clear Calc Estimated GFR POC Glucose 175 H 181 H Random Glucose Lactic Acid Lactic Acid Fup @ 2Hr Calcium Phosphorus Magnesium Ferritin Lactate Dehydrogenase C-Reactive Protein Salicylates Urine Opiates Screen Acetaminophen Ur Barbiturates Screen Ur Phencyclidine Scrn Ur Amphetamines Screen U Benzodiazepines Scrn Urine Cocaine Screen U Marijuana (THC) Screen Blood Type Antibody Screen Microbiology Microbiology Results: Microbiology 03/26/20 11:20 Blood - Venous Blood Culture - Preliminary No growth after 24 hours. 03/26/20 11:20 Blood - Venous Blood Culture - Preliminary No growth after 24 hours. 03/26/20 15:51 Urine clean catch - [place]ledge Catheter Urine Culture - Preliminary No growth to date. 03/26/20 15:51 Sputum - Suctioned Gram Stain - Final 03/26/20 15:51 Sputum - Suctioned Sputum Culture - Preliminary No growth to date. Progress Note: A&P Assessment and plan (1) ARDS (adult respiratory distress syndrome): Problem details: He has likely COVID pneumonia Procalcitonin is not as helpful in renal failure Less likely any additional atypical pneumonia Status: Acute (2) Septic shock: Problem details: Dexamethasone Would hold Remdesivir due to creatinine clearance fluctuating and now 30. Status: Acute (3) Acute respiratory failure with hypoxia: Status: Acute (4) Diabetic ketoacidosis: Status: Acute (5) Pneumonia due to COVID-19 virus: Status: Acute (6) Altered mental status: Status: Acute (7) Hypoxia: Status: Acute (8) Acute renal failure: Status: Acute (9) Metabolic acidosis: Status: Acute Assessment and Plan: At this point will continue to support on the ventilator and he is now received 1 unit of convalescent plasma and Infectious Disease reviewed the case and does not feel there is any bacterial superinfection so we will withhold any further doses of vancomycin and meropenem and await cultures Time Spent With Patient Time: Total time spent is greater than 50% in coordination of care (as documented) at patient's floor/unit and/or counseling patient: Total time spent with greater than 50% in coordination of care (as documented) at patient's floor/unit and/or counseling patient:: 40
--- NOTE | 2020-03-27 16:11 | PC.NURSE ---
S/E Temp max 103.8 - down to 99.4 on cooling blanket - blanket removed at 1400. Agitated with noxious stimuli - RR up to mid 40's, HR 120's, abdominal breathing, O2 down to 87% - Sedated on Propofol gtt - Rocuronium 40mg IVP and Versed 3mg IVP x2 administered throughout shift - started on Versed gtt - switched from AC to PC vent setting - patient appears more comfortable, RR 24, HR 77, sinus. CVP 9-11. L IJ TLC patent. Scant clear inline secretions. Started on Promote tube feeds w/ 120cc water flush Q6. Two liquid BM's, brown. POC trending 150-180's - continue Insulin gtt at 1.5u/hr per MD. Urine o/p 60-125cc/hr, yellow. ID consulted - started on IV Doxy, BC negative x2. Skin mottled lower extremities, improving. No skin integrity concerns, bathed, repo q2hr. Family updated.
[2020-03-27] MEDS: Levothyroxine Sodium 100 MCG VIAL 50 MCG IVPUSH (16:57)
[2020-03-27] MEDS: Doxycycline Hyclate 100 MG in 0.9 % Sodium Chloride 250 ML 166.67 MG IV (16:57)
[2020-03-27 17:16] LABS: Glucose, Whole Blood 200 mg/dL (60-115)
[2020-03-27 17:52] LABS: Glucose, Whole Blood 216 mg/dL (60-115)
[2020-03-27 19:08] LABS: Glucose, Whole Blood 207 mg/dL (60-115)
[2020-03-27 22:30] LABS: Base Excess VBG -7.6 mmol/L; HCO3 VBG 15 mmol/L; PCO2 VBG 26 mmHg; PO2 VBG 46 mmHg; pH VBG 7.37 (7.32-7.43)
[2020-03-27 22:35] LABS: Glucose, Whole Blood 225 mg/dL (60-115)
[2020-03-27 22:35] LABS: Glucose, Whole Blood 196 mg/dL (60-115)
[2020-03-27 23:48] LABS: Anion Gap 17 (12-20); Blood Urea Nitrogen 24 mg/dL (9-16); Calcium 7.5 mg/dL (8.4-10.2); Carbon Dioxide 17 mmol/L (22-29); Chloride 116 mmol/L (96-108); Creatinine Clr Calc Pharmacy 73.6; Estimated Glomerular Filt Rate > 60; Glucose Random 225 mg/dL (60-115); Potassium 3.5 mmol/L (3.3-5.1); Sodium 146 mmol/L (135-145)
[2020-03-28] VITALS (30 sets, daily range): BP systolic 103–158; BP diastolic 67–133; PULSE 72–111; RESP 20–38; TEMP 23.8–40.1; O2SAT 89–97; BMI 30.2
[2020-03-28] MEDS: propofoL 1,000 MG/100 ML VIAL 24.9 MG IVCONT ×7 (00:02→22:26)
[2020-03-28 02:14] LABS: Glucose, Whole Blood 149 mg/dL (60-115)
[2020-03-28 02:14] LABS: Glucose, Whole Blood 193 mg/dL (60-115)
[2020-03-28 02:14] LABS: Glucose, Whole Blood 167 mg/dL (60-115)
[2020-03-28 02:14] LABS: Glucose, Whole Blood 230 mg/dL (60-115)
[2020-03-28] MEDS: Rocuronium Bromide 50 MG/5 ML VIAL 40 MG IVPUSH ×3 (02:28→06:28)
[2020-03-28] MEDS: Midazolam HCl/NS 50 MG/50 ML PLAST..BAG IVCONT ×2 (03:48→14:05)
[2020-03-28] MEDS: Insulin Regular/NS 100 UNIT/100 ML PLAST..BAG IVCONT (05:11)
[2020-03-28] MEDS: Chlorhexidine Gluc Oral Rinse 15 ML MOUTHWASH BUCCAL ×3 (05:11→20:48)
[2020-03-28] MEDS: Doxycycline Hyclate 100 MG in 0.9 % Sodium Chloride 250 ML 166.67 MG IV ×2 (05:12→17:32)
[2020-03-28 05:33] LABS: Basophils Percent Auto 0.1 % (0-2); Hematocrit 37.2 % (42-52); Hemoglobin 12.8 g/dl (14.0-18.0); Imm Gran Abs Auto 0.17 X10*3/uL (0.00-0.03); Imm Gran Pct Auto 1.3 % (0.0-0.4); Lymphocytes Absolute Auto 0.6 X10*3/uL (1.2-4.9); Lymphocytes Percent Auto 4.4 % (20-40); MANUAL DIFF FLAG SCAN; Mean Corpuscular HGB Conc 34.4 g/dl (31.0-36.0); Mean Corpuscular Hemoglobin 28.4 pg (27.0-33.0); Mean Corpuscular Volume 82.5 fL (80-98); Mean Platelet Volume 10.2 fL (9.4-12.4); Monocytes Absolute Auto 0.5 X10*3/uL (0.1-1.2); Monocytes Percent Auto 3.6 % (2-11); Neutrophils Absolute Auto 11.7 X10*3/uL (2.0-8.3); Neutrophils Percent Auto 90.6 % (45-73); Platelet Count 299 X10*3/uL (160-400); Red Blood Count 4.51 X10*6/uL (4.60-5.80); Red Cell Distribution Width 15.4 % (11.0-16.0); SCAN SMEAR FLAG 1; White Blood Count 12.9 X10*3/uL (4.8-10.8)
[2020-03-28 06:09] LABS: Anion Gap 15 (12-20); Blood Urea Nitrogen 23 mg/dL (9-16); C Reactive Protein 23.94 mg/dL (< or = 0.50); Calcium 7.6 mg/dL (8.4-10.2); Carbon Dioxide 19 mmol/L (22-29); Chloride 115 mmol/L (96-108); Creatinine Clr Calc Pharmacy 74.2; Estimated Glomerular Filt Rate > 60; Glucose Random 171 mg/dL (60-115); Lactate Dehydrogenase 379 U/L (118-273); Magnesium 2.1 mg/dL (1.6-2.6); Potassium 3.5 mmol/L (3.3-5.1); Sodium 145 mmol/L (135-145)
[2020-03-28 06:14] LABS: OBS Int Ctl Valid YES; OBS1 POS (NEG)
[2020-03-28 06:14] LABS: SLIDE REVIEW VERIFIED
[2020-03-28 06:29] LABS: Ferritin 999 ng/mL (20-250)
[2020-03-28 06:37] LABS: D Dimer 626 NG/ML
[2020-03-28] MEDS: Famotidine/PF 20 MG/2 ML VIAL IVPUSH ×2 (07:25→20:48)
[2020-03-28] MEDS: dexAMETHasone sod phosphate 4 MG/ML VIAL 6 MG IVPUSH (07:25)
[2020-03-28] MEDS: KCl 20 mEq in 5% Dex/0.45% Sod 20 MEQ/1,000 ML IV.SOLN 80 MEQ IVCONT (07:30)
[2020-03-28] MEDS: Rocuronium Bromide 50 MG/5 ML VIAL 45 MG IVPUSH ×2 (08:05→10:59)
[2020-03-28 08:18] LABS: Glucose, Whole Blood 166 mg/dL (60-115)
[2020-03-28 08:18] LABS: Glucose, Whole Blood 177 mg/dL (60-115)
[2020-03-28 08:19] LABS: Glucose, Whole Blood 162 mg/dL (60-115)
[2020-03-28 08:19] LABS: Glucose, Whole Blood 118 mg/dL (60-115)
[2020-03-28 08:51] LABS: Glucose, Whole Blood 142 mg/dL (60-115)
[2020-03-28 09:00] LABS: Leukocytes Stool Qualitative NEGATIVE (NEGATIVE)
--- NOTE | 2020-03-28 10:42 | P.PNCC_ITS ---
Subjective Subjective Date of Service: 03/28/20 Interval History: 54-year-old male with septic shock based on viral sepsis with COVID-19 pneumonitis and ARDS but new onset diabetes and diabetic ketoacidosis as well as lactic acidosis which has since resolved on on pressor support with vasopressin and Levophed fluid replacement based on CVP measurements and hydration electrolytes and IV insulin based therapy for DKA currently has a non anion gap metabolic acidosis due to iatrogenic hyperchloremia but chest x-ray continues to worsen FiO2 has climbed to 50% and we required paralysis with gnosticism of assist control on the ventilator to take to work of breathing away which was excessive and very erratic pattern but always leading to air trapping an auto PEEP His acute renal failure has resolved with GFR greater than 60 and creatinine down to 1.2 and maintains urine output mental status however still in question but I do not believe he is stable enough for a weaning trial on the sedation Physical Exam Vital Signs: Vital Signs: Last Vital Signs Temp 103.7 F H 03/28/20 07:58 Pulse 95 03/28/20 10:00 Resp 24 H 03/28/20 10:00 BP 122/76 03/28/20 10:00 Pulse Ox 94 03/28/20 10:00 Body Mass Index 30.2 Const: Other: Sedated and intubated but moves all 4 extremities when sedation lightens Cardiac exam with CVP of 9 and good bilateral carotid upstrokes but the a little increase in his tachycardia to 110 when his work of breathing increased and so I did bedside echo which now shows moderate diffuse hypokinesis estimated ejection fraction potentially mid to high 30s and this process may be acute based Objective Data Labs CBC & Chem 7: 03/28/20 05:20 03/28/20 05:20 Labs: Laboratory Results - last 24 hr 03/27/20 03/27/20 03/27/20 10:57 11:45 11:45 WBC RBC Hgb Hct MCV MCH MCHC RDW Plt Count MPV Immature Gran % (Auto) Neut % (Auto) Lymph % (Auto) [place] % (Auto) Eos % (Auto) Baso % (Auto) Lymph # (Auto) [place] # (Auto) Eos # (Auto) Baso # (Auto) Abs Immat Gran (auto) Absolute Neuts (auto) Absolute Nucleated RBC Nucleated RBC % (auto) Smear Tech's Comments D-Dimer VBG pH 7.41 VBG pCO2 25 VBG pO2 40 VBG HCO3 16 VBG O2 Saturation 74.0 VBG Base Excess -6.4 Sodium 146 H Potassium 3.5 Chloride 116 H Carbon Dioxide 17 L Anion Gap 17 BUN 26 H Creatinine 1.41 H Estim Creat Clear Calc 64.2 Estimated GFR 52 POC Glucose 152 H Random Glucose 167 H Calcium 7.2 L Phosphorus Magnesium Ferritin Lactate Dehydrogenase C-Reactive Protein Stool Occult Blood Stool Leukocytes, Qual 03/27/20 03/27/20 03/27/20 12:10 13:19 13:58 WBC RBC Hgb Hct MCV MCH MCHC RDW Plt Count MPV Immature Gran % (Auto) Neut % (Auto) Lymph % (Auto) [place] % (Auto) Eos % (Auto) Baso % (Auto) Lymph # (Auto) [place] # (Auto) Eos # (Auto) Baso # (Auto) Abs Immat Gran (auto) Absolute Neuts (auto) Absolute Nucleated RBC Nucleated RBC % (auto) Smear Tech's Comments D-Dimer VBG pH VBG pCO2 VBG pO2 VBG HCO3 VBG O2 Saturation VBG Base Excess Sodium Potassium Chloride Carbon Dioxide Anion Gap BUN Creatinine Estim Creat Clear Calc Estimated GFR POC Glucose 121 H 162 H 183 H Random Glucose Calcium Phosphorus Magnesium Ferritin Lactate Dehydrogenase C-Reactive Protein Stool Occult Blood Stool Leukocytes, Qual 03/27/20 03/27/20 03/27/20 15:03 15:48 16:59 WBC RBC Hgb Hct MCV MCH MCHC RDW Plt Count MPV Immature Gran % (Auto) Neut % (Auto) Lymph % (Auto) [place] % (Auto) Eos % (Auto) Baso % (Auto) Lymph # (Auto) [place] # (Auto) Eos # (Auto) Baso # (Auto) Abs Immat Gran (auto) Absolute Neuts (auto) Absolute Nucleated RBC Nucleated RBC % (auto) Smear Tech's Comments D-Dimer VBG pH VBG pCO2 VBG pO2 VBG HCO3 VBG O2 Saturation VBG Base Excess Sodium Potassium Chloride Carbon Dioxide Anion Gap BUN Creatinine Estim Creat Clear Calc Estimated GFR POC Glucose 175 H 181 H 200 H Random Glucose Calcium Phosphorus Magnesium Ferritin Lactate Dehydrogenase C-Reactive Protein Stool Occult Blood Stool Leukocytes, Qual 03/27/20 03/27/20 03/27/20 17:48 19:04 20:26 WBC RBC Hgb Hct MCV MCH MCHC RDW Plt Count MPV Immature Gran % (Auto) Neut % (Auto) Lymph % (Auto) [place] % (Auto) Eos % (Auto) Baso % (Auto) Lymph # (Auto) [place] # (Auto) Eos # (Auto) Baso # (Auto) Abs Immat Gran (auto) Absolute Neuts (auto) Absolute Nucleated RBC Nucleated RBC % (auto) Smear Tech's Comments D-Dimer VBG pH VBG pCO2 VBG pO2 VBG HCO3 VBG O2 Saturation VBG Base Excess Sodium Potassium Chloride Carbon Dioxide Anion Gap BUN Creatinine Estim Creat Clear Calc Estimated GFR POC Glucose 216 H 207 H 196 H Random Glucose Calcium Phosphorus Magnesium Ferritin Lactate Dehydrogenase C-Reactive Protein Stool Occult Blood Stool Leukocytes, Qual 03/27/20 03/27/20 03/27/20 22:04 22:09 22:53 WBC RBC Hgb Hct MCV MCH MCHC RDW Plt Count MPV Immature Gran % (Auto) Neut % (Auto) Lymph % (Auto) [place] % (Auto) Eos % (Auto) Baso % (Auto) Lymph # (Auto) [place] # (Auto) Eos # (Auto) Baso # (Auto) Abs Immat Gran (auto) Absolute Neuts (auto) Absolute Nucleated RBC Nucleated RBC % (auto) Smear Tech's Comments D-Dimer VBG pH 7.37 VBG pCO2 26 VBG pO2 46 VBG HCO3 15 VBG O2 Saturation 80.0 VBG Base Excess -7.6 Sodium 146 H Potassium 3.5 Chloride 116 H Carbon Dioxide 17 L Anion Gap 17 BUN 24 H Creatinine 1.23 Estim Creat Clear Calc 73.6 Estimated GFR > 60 POC Glucose 225 H Random Glucose 225 H Calcium 7.5 L Phosphorus Magnesium Ferritin Lactate Dehydrogenase C-Reactive Protein Stool Occult Blood Stool Leukocytes, Qual 03/27/20 03/28/20 03/28/20 23:01 00:11 01:00 WBC RBC Hgb Hct MCV MCH MCHC RDW Plt Count MPV Immature Gran % (Auto) Neut % (Auto) Lymph % (Auto) [place] % (Auto) Eos % (Auto) Baso % (Auto) Lymph # (Auto) [place] # (Auto) Eos # (Auto) Baso # (Auto) Abs Immat Gran (auto) Absolute Neuts (auto) Absolute Nucleated RBC Nucleated RBC % (auto) Smear Tech's Comments D-Dimer VBG pH VBG pCO2 VBG pO2 VBG HCO3 VBG O2 Saturation VBG Base Excess Sodium Potassium Chloride Carbon Dioxide Anion Gap BUN Creatinine Estim Creat Clear Calc Estimated GFR POC Glucose 230 H 193 H 167 H Random Glucose Calcium Phosphorus Magnesium Ferritin Lactate Dehydrogenase C-Reactive Protein Stool Occult Blood Stool Leukocytes, Qual 03/28/20 03/28/20 03/28/20 02:09 03:09 04:13 WBC RBC Hgb Hct MCV MCH MCHC RDW Plt Count MPV Immature Gran % (Auto) Neut % (Auto) Lymph % (Auto) [place] % (Auto) Eos % (Auto) Baso % (Auto) Lymph # (Auto) [place] # (Auto) Eos # (Auto) Baso # (Auto) Abs Immat Gran (auto) Absolute Neuts (auto) Absolute Nucleated RBC Nucleated RBC % (auto) Smear Tech's Comments D-Dimer VBG pH VBG pCO2 VBG pO2 VBG HCO3 VBG O2 Saturation VBG Base Excess Sodium Potassium Chloride Carbon Dioxide Anion Gap BUN Creatinine Estim Creat Clear Calc Estimated GFR POC Glucose 149 H 177 H 166 H Random Glucose Calcium Phosphorus Magnesium Ferritin Lactate Dehydrogenase C-Reactive Protein Stool Occult Blood Stool Leukocytes, Qual 03/28/20 03/28/20 03/28/20 05:18 05:20 05:20 WBC 12.9 H RBC 4.51 L Hgb 12.8 L Hct 37.2 L MCV 82.5 MCH 28.4 MCHC 34.4 RDW 15.4 Plt Count 299 MPV 10.2 Immature Gran % (Auto) 1.3 H Neut % (Auto) 90.6 H Lymph % (Auto) 4.4 L [place] % (Auto) 3.6 Eos % (Auto) 0.0 Baso % (Auto) 0.1 Lymph # (Auto) 0.6 L [place] # (Auto) 0.5 Eos # (Auto) 0.0 Baso # (Auto) 0.0 Abs Immat Gran (auto) 0.17 H Absolute Neuts (auto) 11.7 H Absolute Nucleated RBC 0.000 Nucleated RBC % (auto) 0.0 Smear Tech's Comments VERIFIED D-Dimer 626 VBG pH VBG pCO2 VBG pO2 VBG HCO3 VBG O2 Saturation VBG Base Excess Sodium Potassium Chloride Carbon Dioxide Anion Gap BUN Creatinine Estim Creat Clear Calc Estimated GFR POC Glucose 162 H Random Glucose Calcium Phosphorus Magnesium Ferritin Lactate Dehydrogenase C-Reactive Protein Stool Occult Blood Stool Leukocytes, Qual 03/28/20 03/28/20 03/28/20 05:20 05:30 05:30 WBC RBC Hgb Hct MCV MCH MCHC RDW Plt Count MPV Immature Gran % (Auto) Neut % (Auto) Lymph % (Auto) [place] % (Auto) Eos % (Auto) Baso % (Auto) Lymph # (Auto) [place] # (Auto) Eos # (Auto) Baso # (Auto) Abs Immat Gran (auto) Absolute Neuts (auto) Absolute Nucleated RBC Nucleated RBC % (auto) Smear Tech's Comments D-Dimer VBG pH VBG pCO2 VBG pO2 VBG HCO3 VBG O2 Saturation VBG Base Excess Sodium 145 Potassium 3.5 Chloride 115 H Carbon Dioxide 19 L Anion Gap 15 BUN 23 H Creatinine 1.22 Estim Creat Clear Calc 74.2 Estimated GFR > 60 POC Glucose Random Glucose 171 H Calcium 7.6 L Phosphorus 2.0 L Magnesium 2.1 Ferritin 999 H Lactate Dehydrogenase 379 H C-Reactive Protein 23.94 H Stool Occult Blood POS Stool Leukocytes, Qual NEGATIVE 03/28/20 03/28/20 07:45 08:45 WBC RBC Hgb Hct MCV MCH MCHC RDW Plt Count MPV Immature Gran % (Auto) Neut % (Auto) Lymph % (Auto) [place] % (Auto) Eos % (Auto) Baso % (Auto) Lymph # (Auto) [place] # (Auto) Eos # (Auto) Baso # (Auto) Abs Immat Gran (auto) Absolute Neuts (auto) Absolute Nucleated RBC Nucleated RBC % (auto) Smear Tech's Comments D-Dimer VBG pH VBG pCO2 VBG pO2 VBG HCO3 VBG O2 Saturation VBG Base Excess Sodium Potassium Chloride Carbon Dioxide Anion Gap BUN Creatinine Estim Creat Clear Calc Estimated GFR POC Glucose 118 H 142 H Random Glucose Calcium Phosphorus Magnesium Ferritin Lactate Dehydrogenase C-Reactive Protein Stool Occult Blood Stool Leukocytes, Qual Microbiology Microbiology Results: Microbiology 03/26/20 11:20 Blood - Venous Blood Culture - Preliminary No growth after 24 hours. 03/26/20 11:20 Blood - Venous Blood Culture - Preliminary No growth after 24 hours. 03/26/20 15:51 Urine clean catch - Rutledge Catheter Urine Culture - Preliminary No growth to date. 03/26/20 15:51 Sputum - Suctioned Gram Stain - Final 03/26/20 15:51 Sputum - Suctioned Sputum Culture - Preliminary No growth to date. Progress Note: A&P Assessment and plan (1) ARDS (adult respiratory distress syndrome): Problem details: He has likely COVID pneumonia Procalcitonin is not as helpful in renal failure Less likely any additional atypical pneumonia Status: Acute (2) Septic shock: Problem details: Dexamethasone Would hold Remdesivir due to creatinine clearance fluctuating and now 30. Status: Acute (3) Acute respiratory failure with hypoxia: Status: Acute (4) Diabetic ketoacidosis: Status: Acute (5) Pneumonia due to COVID-19 virus: Status: Acute (6) Altered mental status: Status: Acute (7) Hypoxia: Status: Acute (8) Acute renal failure: Status: Acute (9) Metabolic acidosis: Status: Acute Assessment and Plan: So the plan is to maintain paralytic and use assist control which in itself will mechanically on load cardiovascular failure and is already on Levophed continue to follow CVP continue IV insulin until repeat blood work comes back and will begin IV immunoglobulin for what is apparently cytokine storm with climbing LDH and ferritin and CRP Time Spent With Patient Time: Total time spent is greater than 50% in coordination of care (as documented) at patient's floor/unit and/or counseling patient: Total time spent with greater than 50% in coordination of care (as documented) at patient's floor/unit and/or counseling patient:: 45
[2020-03-28] MEDS: Enoxaparin Sodium 80 MG/0.8 ML SYRINGE SUBCUT ×2 (11:28→23:58)
[2020-03-28 11:37] LABS: Glucose, Whole Blood 163 mg/dL (60-115)
[2020-03-28 11:37] LABS: Glucose, Whole Blood 134 mg/dL (60-115)
[2020-03-28 12:16] LABS: Glucose, Whole Blood 162 mg/dL (60-115)
[2020-03-28 12:18] LABS: Base Excess VBG -6.8 mmol/L; HCO3 VBG 17 mmol/L; PCO2 VBG 30 mmHg; PO2 VBG 50 mmHg; pH VBG 7.35 (7.32-7.43)
[2020-03-28 12:36] LABS: Lactic Acid 1.4 mmol/L (0.5-2.0)
[2020-03-28 12:39] LABS: Anion Gap 13 (12-20); Blood Urea Nitrogen 21 mg/dL (9-16); Calcium 7.5 mg/dL (8.4-10.2); Carbon Dioxide 19 mmol/L (22-29); Chloride 115 mmol/L (96-108); Creatinine Clr Calc Pharmacy 91.7; Estimated Glomerular Filt Rate > 60; Glucose Random 193 mg/dL (60-115); Potassium 3.5 mmol/L (3.3-5.1); Sodium 143 mmol/L (135-145)
[2020-03-28] MEDS: KCl 20 mEq in 0.45% Sod 20 MEQ/1,000 ML IV.SOLN 80 MEQ IVCONT (13:43)
[2020-03-28] MEDS: Insulin Lispro 100 UNIT/ML 3 ML VIAL SUBCUT ×3 (14:04→23:58)
[2020-03-28 14:20] LABS: Glucose, Whole Blood 188 mg/dL (60-115)
--- NOTE | 2020-03-28 16:42 | PC.NURSE ---
Patient remains sedated on propofol and versed. This morning patient asynchronous with the vent requiring Rocuronium 45 mg IVP at 0800 and 1000. Patient synchronous with vent after Rocuronium. Vent settings changed to PC with rate of 20, VC 500, PEEP 8, Fio2 40%. Tidal volume 488, minute volume 10. 02 sats trending in the mid 90s. Weak cough and gag present. Remains flaccid. Restraints in place for safety. Remains on levophed and vasopressin, see MAR. MAP trending >65. This am temp 103.7, MD aware. Patient on cooling blanket at start of shift, removed at 1400 for core temp of 97.5. POC trending below 200. Insulin gtt turned off around 1400 per MD. POC Q6HR and SSI ordered. Glucerna tube feed restarted at 20 ml/hr around 16:30 per MD. Per MD, if patient requires additional Rocuronium tube feeds to be held and aspirate GI content/tube feed to prevent aspiration. Skin C/D/I. Upper and lower extremities remain cool to touch and mottling to lower extremities, noted since admission per RN report. MD aware.
[2020-03-28 17:24] LABS: Glucose, Whole Blood 299 mg/dL (60-115)
[2020-03-28] MEDS: Levothyroxine Sodium 100 MCG VIAL 50 MCG IVPUSH (17:32)
[2020-03-29] VITALS (28 sets, daily range): BP systolic 91–138; BP diastolic 48–89; PULSE 77–105; RESP 20–34; TEMP 37.1–40.1; O2SAT 88–100; BMI 30.2
[2020-03-29 00:12] LABS: Glucose, Whole Blood 263 mg/dL (60-115)
[2020-03-29] MEDS: KCl 20 mEq in 0.45% Sod 20 MEQ/1,000 ML IV.SOLN 80 MEQ IVCONT (02:00)
[2020-03-29] MEDS: propofoL 1,000 MG/100 ML VIAL 24.9 MG IVCONT ×2 (02:00→05:48)
[2020-03-29] MEDS: Chlorhexidine Gluc Oral Rinse 15 ML MOUTHWASH BUCCAL ×3 (05:46→22:03)
[2020-03-29] MEDS: Doxycycline Hyclate 100 MG in 0.9 % Sodium Chloride 250 ML 166.67 MG IV ×2 (05:46→18:30)
[2020-03-29] MEDS: Midazolam HCl/NS 50 MG/50 ML PLAST..BAG IVCONT (05:48)
[2020-03-29 06:06] LABS: Base Excess VBG -8.3 mmol/L; HCO3 VBG 15 mmol/L; PCO2 VBG 27 mmHg; PO2 VBG 49 mmHg; pH VBG 7.36 (7.32-7.43)
[2020-03-29 06:10] LABS: Basophils Percent Auto 0.2 % (0-2); Hematocrit 37.3 % (42-52); Hemoglobin 12.4 g/dl (14.0-18.0); Imm Gran Abs Auto 0.57 X10*3/uL (0.00-0.03); Imm Gran Pct Auto 4.7 % (0.0-0.4); Lymphocytes Absolute Auto 0.7 X10*3/uL (1.2-4.9); Lymphocytes Percent Auto 5.6 % (20-40); MANUAL DIFF FLAG SCAN; Mean Corpuscular HGB Conc 33.2 g/dl (31.0-36.0); Mean Corpuscular Hemoglobin 27.9 pg (27.0-33.0); Mean Corpuscular Volume 83.8 fL (80-98); Mean Platelet Volume 10.4 fL (9.4-12.4); Monocytes Absolute Auto 0.6 X10*3/uL (0.1-1.2); Monocytes Percent Auto 5.2 % (2-11); Neutrophils Absolute Auto 10.3 X10*3/uL (2.0-8.3); Neutrophils Percent Auto 84.3 % (45-73); Platelet Count 310 X10*3/uL (160-400); Red Blood Count 4.45 X10*6/uL (4.60-5.80); Red Cell Distribution Width 15.9 % (11.0-16.0); SCAN SMEAR FLAG 1; White Blood Count 12.2 X10*3/uL (4.8-10.8)
[2020-03-29] MEDS: Insulin Lispro 100 UNIT/ML 3 ML VIAL SUBCUT (06:12)
[2020-03-29 06:18] LABS: D Dimer 495 NG/ML
[2020-03-29 06:27] LABS: SLIDE REVIEW VERIFIED
[2020-03-29 06:31] LABS: Anion Gap 17 (12-20); Blood Urea Nitrogen 28 mg/dL (9-16); C Reactive Protein 22.99 mg/dL (< or = 0.50); Calcium 7.4 mg/dL (8.4-10.2); Carbon Dioxide 15 mmol/L (22-29); Chloride 113 mmol/L (96-108); Estimated Glomerular Filt Rate > 60; Glucose Random 257 mg/dL (60-115); Lactate Dehydrogenase 422 U/L (118-273); Magnesium 2.2 mg/dL (1.6-2.6); Phosphorus 3.9 mg/dL (2.7-4.5); Potassium 4.2 mmol/L (3.3-5.1); Sodium 141 mmol/L (135-145)
[2020-03-29 06:42] LABS: Glucose, Whole Blood 264 mg/dL (60-115)
[2020-03-29] MEDS: dexAMETHasone sod phosphate 4 MG/ML VIAL 6 MG IVPUSH (07:23)
[2020-03-29] MEDS: Famotidine/PF 20 MG/2 ML VIAL IVPUSH ×2 (07:23→22:03)
[2020-03-29 08:07] LABS: Lactic Acid 1.6 mmol/L (0.5-2.0)
[2020-03-29 08:26] LABS: Ferritin 1674 ng/mL (20-250)
[2020-03-29] MEDS: fentaNYL citrate/NS 1,000 MCG/100 ML PLAST..BAG 20 MCG IVCONT (08:35)
[2020-03-29] MEDS: Rocuronium Bromide 50 MG/5 ML VIAL 45 MG IVPUSH (08:40)
[2020-03-29] MEDS: fentaNYL citrate/PF 100 MCG/2 ML VIAL 50 MCG IVPUSH (08:46)
[2020-03-29] MEDS: Thiamine HCL 200 MG/2 ML VIAL 100 MG IVPUSH (10:49)
[2020-03-29] MEDS: Insulin Regular/NS 100 UNIT/100 ML PLAST..BAG IVCONT (10:49)
[2020-03-29] MEDS: Furosemide 20 MG/2 ML VIAL IVPUSH (10:49)
[2020-03-29 12:04] LABS: Glucose, Whole Blood 190 mg/dL (60-115)
--- NOTE | 2020-03-29 12:29 | PC.NURSE ---
This RN had issues scanning IV IG in MAR yesterday 03/28/20. Three separate orders for the three different bottles existed, one bottle of 5g and two bottles of 20g. MAR showed that today's 11/26/20 12:00 dose was scanned and administered yesterday 03/28/20 and it was not. Unable to edit entry in APR. Spoke to Yuni in pharmacy today. She made an adjustment in APR and created a new entry for today's 1200 dose and so it could be scanned. Pharmacist Yuni will leave note for Pharmacist Aracely for the account to be adjusted and for all bottles will be accounted for both days correctly.
[2020-03-29 13:07] LABS: Glucose, Whole Blood 195 mg/dL (60-115)
--- NOTE | 2020-03-29 13:25 | P.PNCC_ITS ---
Subjective Subjective Date of Service: 03/29/20 Interval History: 54-year-old with COVID-19 pneumonitis and ARDS presented in viral septal she septic shock intubated because of profound mottling a pH of 6.86 and apparently new onset diabetes with diabetic ketoacidosis along with significant lactic acidosis which has since resolved and because of a persistent negative base excess of approximately 8 part of which is hyperchloremic I 8 started IV insulin again for that the portion of the acidosis that I believe is persistent ketoacidosis Sedation weaning unsuccessful no cognitive function and he had what appeared to be a very disordered add rapid diaphragmatic breathing with severe ventilator dyssynchrony and due to tachypnea developed the very acute auto PEEP with drop in oxygen saturations so it required recent day pollard but I took him off propofol because of the metabolic acidosis and changed him to fentanyl in addition to Versed CVP climbed as high as 15 and he was 8 L cumulatively positive intake over output so I diurese with 20 of Lasix and we were able to gradually wean once again the FiO2 Physical Exam Vital Signs: Vital Signs: Last Vital Signs Temp 102.7 F H 03/29/20 11:53 Pulse 97 03/29/20 12:55 Resp 29 H 03/29/20 12:55 BP 121/72 03/29/20 12:55 Pulse Ox 94 03/29/20 12:55 Body Mass Index 30.2 Const: Other: Off sedation still has no cognitive function but nonfocal neurologically CVP elevated with considerable iatrogenic fluid overload responding to diuresis Chest x-ray still shows bilateral congestion with scattered infiltrates and flu id tracking into the fissures indicating some fluid overload Abdomen is soft good bowel sounds no organomegaly tolerating feedings which intermittently we have to hold because of paralytic agent A diminished livedo and no acrocyanosis and no wounds on the scan Objective Data Labs CBC & Chem 7: 03/29/20 05:50 03/29/20 05:51 Labs: Laboratory Results - last 24 hr 03/28/20 03/28/20 03/29/20 13:55 17:20 00:01 WBC RBC Hgb Hct MCV MCH MCHC RDW Plt Count MPV Immature Gran % (Auto) Neut % (Auto) Lymph % (Auto) [place] % (Auto) Eos % (Auto) Baso % (Auto) Lymph # (Auto) [place] # (Auto) Eos # (Auto) Baso # (Auto) Abs Immat Gran (auto) Absolute Neuts (auto) Absolute Nucleated RBC Nucleated RBC % (auto) Smear Tech's Comments D-Dimer VBG pH VBG pCO2 VBG pO2 VBG HCO3 VBG O2 Saturation VBG Base Excess Sodium Potassium Chloride Carbon Dioxide Anion Gap BUN Creatinine Estim Creat Clear Calc Estimated GFR POC Glucose 188 H 299 H 263 H Random Glucose Lactic Acid Calcium Phosphorus Magnesium Ferritin Lactate Dehydrogenase C-Reactive Protein 03/29/20 03/29/20 03/29/20 05:50 05:50 05:50 WBC 12.2 H RBC 4.45 L Hgb 12.4 L Hct 37.3 L MCV 83.8 MCH 27.9 MCHC 33.2 RDW 15.9 Plt Count 310 MPV 10.4 Immature Gran % (Auto) 4.7 H Neut % (Auto) 84.3 H Lymph % (Auto) 5.6 L [place] % (Auto) 5.2 Eos % (Auto) 0.0 Baso % (Auto) 0.2 Lymph # (Auto) 0.7 L [place] # (Auto) 0.6 Eos # (Auto) 0.0 Baso # (Auto) 0.0 Abs Immat Gran (auto) 0.57 H Absolute Neuts (auto) 10.3 H Absolute Nucleated RBC 0.000 Nucleated RBC % (auto) 0.0 Smear Tech's Comments VERIFIED D-Dimer 495 VBG pH 7.36 VBG pCO2 27 VBG pO2 49 VBG HCO3 15 VBG O2 Saturation 78.0 VBG Base Excess -8.3 Sodium Potassium Chloride Carbon Dioxide Anion Gap BUN Creatinine Estim Creat Clear Calc Estimated GFR POC Glucose Random Glucose Lactic Acid Calcium Phosphorus Magnesium Ferritin Lactate Dehydrogenase C-Reactive Protein 03/29/20 03/29/20 03/29/20 05:51 06:06 07:32 WBC RBC Hgb Hct MCV MCH MCHC RDW Plt Count MPV Immature Gran % (Auto) Neut % (Auto) Lymph % (Auto) [place] % (Auto) Eos % (Auto) Baso % (Auto) Lymph # (Auto) [place] # (Auto) Eos # (Auto) Baso # (Auto) Abs Immat Gran (auto) Absolute Neuts (auto) Absolute Nucleated RBC Nucleated RBC % (auto) Smear Tech's Comments D-Dimer VBG pH VBG pCO2 VBG pO2 VBG HCO3 VBG O2 Saturation VBG Base Excess Sodium 141 Potassium 4.2 Chloride 113 H Carbon Dioxide 15 L Anion Gap 17 BUN 28 H Creatinine 1.11 Estim Creat Clear Calc 81.0 Estimated GFR > 60 POC Glucose 264 H Random Glucose 257 H Lactic Acid 1.6 Calcium 7.4 L Phosphorus 3.9 Magnesium 2.2 Ferritin 1674 H Lactate Dehydrogenase 422 H C-Reactive Protein 22.99 H 03/29/20 03/29/20 11:22 12:58 WBC RBC Hgb Hct MCV MCH MCHC RDW Plt Count MPV Immature Gran % (Auto) Neut % (Auto) Lymph % (Auto) [place] % (Auto) Eos % (Auto) Baso % (Auto) Lymph # (Auto) [place] # (Auto) Eos # (Auto) Baso # (Auto) Abs Immat Gran (auto) Absolute Neuts (auto) Absolute Nucleated RBC Nucleated RBC % (auto) Smear Tech's Comments D-Dimer VBG pH VBG pCO2 VBG pO2 VBG HCO3 VBG O2 Saturation VBG Base Excess Sodium Potassium Chloride Carbon Dioxide Anion Gap BUN Creatinine Estim Creat Clear Calc Estimated GFR POC Glucose 190 H 195 H Random Glucose Lactic Acid Calcium Phosphorus Magnesium Ferritin Lactate Dehydrogenase C-Reactive Protein Microbiology Microbiology Results: Microbiology 03/26/20 15:51 Urine clean catch - Rutledge Catheter Urine Culture - Final No growth. 03/28/20 05:30 Stool Stool Culture - Preliminary Culture in progress. 03/26/20 11:20 Blood - Venous Blood Culture - Preliminary No growth after 48 hours. 03/26/20 11:20 Blood - Venous Blood Culture - Preliminary No growth after 48 hours. 03/26/20 15:51 Sputum - Suctioned Gram Stain - Final 03/26/20 15:51 Sputum - Suctioned Sputum Culture - Final No growth. Progress Note: A&P Assessment and plan (1) ARDS (adult respiratory distress syndrome): Problem details: He has likely COVID pneumonia Procalcitonin is not as helpful in renal failure Less likely any additional atypical pneumonia Status: Acute (2) Septic shock: Problem details: Dexamethasone Would hold Remdesivir due to creatinine clearance fluctuating and now 30. Status: Acute (3) Acute respiratory failure with hypoxia: Status: Acute (4) Diabetic ketoacidosis: Status: Acute (5) Pneumonia due to COVID-19 virus: Status: Acute (6) Altered mental status: Status: Acute (7) Hypoxia: Status: Acute (8) Acute renal failure: Status: Acute (9) Metabolic acidosis: Status: Acute (10) Diastolic dysfunction with heart failure: Status: Acute Assessment and Plan: So weaning trial was of failure from cognitive function as well as respiratory status and we had to restore assist control recent date and because of acidosis I stop the propofol and he is now on Versed drip as well as IV fentanyl and was given 20 mg of IV Lasix Time Spent With Patient Time: Total time spent is greater than 50% in coordination of care (as documented) at patient's floor/unit and/or counseling patient: Total time spent with greater than 50% in coordination of care (as documented) a t patient's floor/unit and/or counseling patient:: 40
[2020-03-29 13:37] LABS: Glucose, Whole Blood 160 mg/dL (60-115)
[2020-03-29] MEDS: fentaNYL citrate/NS 1,000 MCG/100 ML PLAST..BAG 10 MCG IVCONT ×2 (14:25→22:03)
[2020-03-29] MEDS: Midazolam HCl/NS 50 MG/50 ML PLAST..BAG 6 MG IVCONT ×2 (14:28→23:29)
[2020-03-29 14:33] LABS: Glucose, Whole Blood 163 mg/dL (60-115)
[2020-03-29 15:55] LABS: Glucose, Whole Blood 170 mg/dL (60-115)
[2020-03-29 16:55] LABS: Basophils Percent Auto 0.2 % (0-2); Hematocrit 37.3 % (42-52); Hemoglobin 12.4 g/dl (14.0-18.0); Imm Gran Abs Auto 0.31 X10*3/uL (0.00-0.03); Imm Gran Pct Auto 3.3 % (0.0-0.4); Lymphocytes Absolute Auto 0.6 X10*3/uL (1.2-4.9); Lymphocytes Percent Auto 6.8 % (20-40); MANUAL DIFF FLAG SCAN; Mean Corpuscular HGB Conc 33.2 g/dl (31.0-36.0); Mean Corpuscular Hemoglobin 27.7 pg (27.0-33.0); Mean Corpuscular Volume 83.4 fL (80-98); Mean Platelet Volume 10.8 fL (9.4-12.4); Monocytes Absolute Auto 0.5 X10*3/uL (0.1-1.2); Monocytes Percent Auto 5.6 % (2-11); Neutrophils Absolute Auto 7.9 X10*3/uL (2.0-8.3); Neutrophils Percent Auto 84.1 % (45-73); Platelet Count 293 X10*3/uL (160-400); Red Blood Count 4.47 X10*6/uL (4.60-5.80); Red Cell Distribution Width 15.9 % (11.0-16.0); SCAN SMEAR FLAG 1; White Blood Count 9.4 X10*3/uL (4.8-10.8)
[2020-03-29 17:17] LABS: SLIDE REVIEW VERIFIED
[2020-03-29 17:23] LABS: Anion Gap 15 (12-20); Blood Urea Nitrogen 26 mg/dL (9-16); Calcium 7.4 mg/dL (8.4-10.2); Carbon Dioxide 22 mmol/L (22-29); Chloride 110 mmol/L (96-108); Creatinine Clr Calc Pharmacy 78.8; Estimated Glomerular Filt Rate > 60; Glucose Random 179 mg/dL (60-115); Potassium 3.7 mmol/L (3.3-5.1); Sodium 143 mmol/L (135-145)
[2020-03-29 17:38] LABS: Erythrocyte Sedimentation Rate 74 MM/HR (0-15)
[2020-03-29 18:26] LABS: Glucose, Whole Blood 170 mg/dL (60-115)
[2020-03-29] MEDS: Levothyroxine Sodium 100 MCG VIAL 50 MCG IVPUSH (18:29)
--- NOTE | 2020-03-29 20:18 | PC.NURSE ---
0730 sedation vacation from propofol, versed drip continued. No purposeful movement noted and patient unable to follow commands. Patient became asynchronous with vent, belly breathing with RR in the 30s. Notified MD. Administered ordered 50 mcg Fentanyl IVP and started Fentanyl drip. Minimal effect noted, updated MD. Administered ordered prn 45 mg Rocuronium per MD. Patient became synchronous with the vent, RR 20. Remains on vent settings: AC rate 20, VC 500, PEEP 8, Fio2 titrated to 70%. O2 sats in the low to mid 90s. Positive cough and gag. Remains flaccid. Patient temp increased to 103, MD aware. New set of blood cultures drawn. Sputum and urine cultures collected. MD to order IV Tylenol. Rutledge output trending around 50-100 ml/hr. MD ordered 20 mg Lasix IVP. Subsequent output of over 1 L following admin of Lasix, MD notified. Around 1400 patient tube feed restarted at 20 ml/hr per MD. Tolerating feeds. Water flush of 120. Residual 0. POC trending around 160 to 170. Per MD patient restarted on Insulin Drip at 2 u/hr. POC Q1H.
[2020-03-29 20:32] LABS: Glucose, Whole Blood 184 mg/dL (60-115)
[2020-03-29] MEDS: vancomycin HCL 1,000 MG in 0.9 % Sodium Chloride 250 ML 270 MG IV (21:58)
[2020-03-29] MEDS: metroNIDAZOLE/NS 500 MG/100 ML PIGGYBACK 100 MG IV (22:03)
[2020-03-29 23:13] LABS: Glucose, Whole Blood 179 mg/dL (60-115)
[2020-03-29 23:13] LABS: Glucose, Whole Blood 166 mg/dL (60-115)
[2020-03-29 23:59] LABS: CDIFF Ag Negative (Negative); CDIFF Internal ctrl Dots and bkg OK (V); CDiff Toxin Negative (Negative)
[2020-03-30] VITALS (29 sets, daily range): BP systolic 101–127; BP diastolic 55–73; PULSE 64–83; RESP 20–28; TEMP 36.5–37.9; O2SAT 89–99; BMI 30.2
[2020-03-30] MEDS: Enoxaparin Sodium 80 MG/0.8 ML SYRINGE SUBCUT (00:27)
[2020-03-30 00:49] LABS: Glucose, Whole Blood 150 mg/dL (60-115)
[2020-03-30 02:04] LABS: Glucose, Whole Blood 143 mg/dL (60-115)
[2020-03-30] MEDS: Doxycycline Hyclate 100 MG in 0.9 % Sodium Chloride 250 ML 166.67 MG IV (04:57)
[2020-03-30] MEDS: Chlorhexidine Gluc Oral Rinse 15 ML MOUTHWASH BUCCAL ×3 (04:58→19:59)
[2020-03-30 05:20] LABS: Base Excess VBG -1.8 mmol/L; HCO3 VBG 22 mmol/L; PCO2 VBG 35 mmHg; PO2 VBG 49 mmHg
[2020-03-30 05:37] LABS: MANUAL DIFF FLAG NO
[2020-03-30 05:40] LABS: Basophils Percent Auto 0.1 % (0-2); Hematocrit 34.5 % (42-52); Hemoglobin 11.3 g/dl (14.0-18.0); Imm Gran Abs Auto 0.38 X10*3/uL (0.00-0.03); Imm Gran Pct Auto 4.3 % (0.0-0.4); Lymphocytes Absolute Auto 0.8 X10*3/uL (1.2-4.9); Mean Corpuscular HGB Conc 32.8 g/dl (31.0-36.0); Mean Corpuscular Hemoglobin 27.8 pg (27.0-33.0); Mean Corpuscular Volume 84.8 fL (80-98); Mean Platelet Volume 10.2 fL (9.4-12.4); Monocytes Absolute Auto 0.9 X10*3/uL (0.1-1.2); Monocytes Percent Auto 10.4 % (2-11); Neutrophils Absolute Auto 6.7 X10*3/uL (2.0-8.3); Neutrophils Percent Auto 76.2 % (45-73); Platelet Count 268 X10*3/uL (160-400); Red Blood Count 4.07 X10*6/uL (4.60-5.80); Red Cell Distribution Width 15.5 % (11.0-16.0); White Blood Count 8.8 X10*3/uL (4.8-10.8)
[2020-03-30 05:48] LABS: D Dimer 604 NG/ML
[2020-03-30 06:10] LABS: Anion Gap 12 (12-20); Blood Urea Nitrogen 31 mg/dL (9-16); C Reactive Protein 18.63 mg/dL (< or = 0.50); Carbon Dioxide 23 mmol/L (22-29); Chloride 112 mmol/L (96-108); Creatinine Clr Calc Pharmacy 87.2; Estimated Glomerular Filt Rate > 60; Glucose Random 188 mg/dL (60-115); Lactate Dehydrogenase 498 U/L (118-273); Magnesium 2.1 mg/dL (1.6-2.6); Phosphorus 3.3 mg/dL (2.7-4.5); Potassium 3.6 mmol/L (3.3-5.1); Sodium 143 mmol/L (135-145)
[2020-03-30 06:37] LABS: Glucose, Whole Blood 165 mg/dL (60-115)
[2020-03-30] MEDS: Midazolam HCl/NS 50 MG/50 ML PLAST..BAG 6 MG IVCONT (07:08)
[2020-03-30 07:16] LABS: Glucose, Whole Blood 188 mg/dL (60-115)
[2020-03-30 07:18] LABS: Ferritin 1882 ng/mL (20-250)
[2020-03-30] MEDS: Furosemide 20 MG/2 ML VIAL IVPUSH (09:52)
[2020-03-30] MEDS: Famotidine/PF 20 MG/2 ML VIAL IVPUSH ×2 (09:52→19:59)
[2020-03-30] MEDS: propofoL 1,000 MG/100 ML VIAL 10.8 MG IVCONT (09:53)
[2020-03-30] MEDS: fentaNYL citrate/NS 1,000 MCG/100 ML PLAST..BAG 10 MCG IVCONT ×2 (09:53→20:22)
[2020-03-30] MEDS: Insulin Glargine,Hum.rec.anlog 100 UNIT/ML 10 ML VIAL 20 UNIT SUBCUT (09:54)
[2020-03-30] MEDS: dexAMETHasone sod phosphate 4 MG/ML VIAL 6 MG IVPUSH (09:55)
--- NOTE | 2020-03-30 10:38 | MHC.CLN ---
F/U PT NO LONGER RECEIVING PROPOFOL RECOMMEND INCREASING FORMULA TO GLUCERNA AT MAX GOAL RATE 75CC/HR TO PROVIDE 1800KCALS (23KCALS/KG), 75G (1.0G/KG), 1535CC FREE WATER FROM FORMULA (2015CC TOTAL WITH FLUSHES) MONITOR TOLERANCE, RESIDUALS AND LYTES
--- NOTE | 2020-03-30 12:04 | P.PNCC_ITS ---
Subjective Subjective Date of Service: 03/30/20 Interval History: 54-year-old gentleman, new diagnosis of insulin-dependent diabetes hospitalized on March 26 2020 with dyspnea and viral septic shock secondary to COVID-19 ARDS complicated by diabetic ketoacidosis requiring vasopressor support, insulin drip, intubation, and ventilatory support. Hospital course further complicated by encephalopathy. No events overnight. FiO2 requirements continue to remain high at around 70%. Physical Exam Vital Signs: Vital Signs: Last Vital Signs Temp 100.2 F 03/30/20 11:00 Pulse 81 03/30/20 11:00 Resp 23 H 03/30/20 11:00 BP 103/60 03/30/20 11:00 Pulse Ox 96 03/30/20 11:00 Body Mass Index 30.2 Const: General: no acute distress and other (Sedated on the vent) Eyes: Sclerae: sclerae normal EOM: EOMs intact bilaterally Neck: Neck: Yes no lymphadenopathy, Yes trachea midline and Yes supple Resp: Auscultation: crackles (Diffuse bilateral) Cardio: Rate: regular rate Rhythm: regular rhythm Heart sounds: no g allops, no murmurs and no rubs GI: Palpation (GI): Soft to palpation and Other GI palpation findings present ( Nontender) Auscultation: normal bowel sounds Extrem: General: No clubbing, No cyanosis and Yes edema (Trace bilateral) Objective Data Labs CBC & Chem 7: 03/30/20 05:00 03/30/20 05:00 Labs: Laboratory Results - last 24 hr 03/29/20 03/29/20 03/29/20 11:22 12:58 13:23 WBC RBC Hgb Hct MCV MCH MCHC RDW Plt Count MPV Immature Gran % (Auto) Neut % (Auto) Lymph % (Auto) [place] % (Auto) Eos % (Auto) Baso % (Auto) Lymph # (Auto) [place] # (Auto) Eos # (Auto) Baso # (Auto) Abs Immat Gran (auto) Absolute Neuts (auto) Absolute Nucleated RBC Nucleated RBC % (auto) Smear Tech's Comments ESR D-Dimer VBG pH VBG pCO2 VBG pO2 VBG HCO3 VBG O2 Saturation VBG Base Excess Sodium Potassium Chloride Carbon Dioxide Anion Gap BUN Creatinine Estim Creat Clear Calc Estimated GFR POC Glucose 190 H 195 H 160 H Random Glucose Calcium Phosphorus Magnesium Ferritin Lactate Dehydrogenase C-Reactive Protein C. difficile Toxin A&B C. difficile Antigen C. difficile Interpret 03/29/20 03/29/20 03/29/20 14:27 15:05 15:05 WBC 9.4 RBC 4.47 L Hgb 12.4 L Hct 37.3 L MCV 83.4 MCH 27.7 MCHC 33.2 RDW 15.9 Plt Count 293 MPV 10.8 Immature Gran % (Auto) 3.3 H Neut % (Auto) 84.1 H Lymph % (Auto) 6.8 L [place] % (Auto) 5.6 Eos % (Auto) 0.0 Baso % (Auto) 0.2 Lymph # (Auto) 0.6 L [place] # (Auto) 0.5 Eos # (Auto) 0.0 Baso # (Auto) 0.0 Abs Immat Gran (auto) 0.31 H Absolute Neuts (auto) 7.9 Absolute Nucleated RBC 0.000 Nucleated RBC % (auto) 0.0 Smear Tech's Comments VERIFIED ESR D-Dimer VBG pH VBG pCO2 VBG pO2 VBG HCO3 VBG O2 Saturation VBG Base Excess Sodium 143 Potassium 3.7 Chloride 110 H Carbon Dioxide 22 Anion Gap 15 BUN 26 H Creatinine 1.14 Estim Creat Clear Calc 78.8 Estimated GFR > 60 POC Glucose 163 H Random Glucose 179 H Calcium 7.4 L Phosphorus Magnesium Ferritin Lactate Dehydrogenase C-Reactive Protein C. difficile Toxin A&B C. difficile Antigen C. difficile Interpret 03/29/20 03/29/20 03/29/20 15:05 15:44 18:19 WBC RBC Hgb Hct MCV MCH MCHC RDW Plt Count MPV Immature Gran % (Auto) Neut % (Auto) Lymph % (Auto) [place] % (Auto) Eos % (Auto) Baso % (Auto) Lymph # (Auto) [place] # (Auto) Eos # (Auto) Baso # (Auto) Abs Immat Gran (auto) Absolute Neuts (auto) Absolute Nucleated RBC Nucleated RBC % (auto) Smear Tech's Comments ESR 74 H D-Dimer VBG pH VBG pCO2 VBG pO2 VBG HCO3 VBG O2 Saturation VBG Base Excess Sodium Potassium Chloride Carbon Dioxide Anion Gap BUN Creatinine Estim Creat Clear Calc Estimated GFR POC Glucose 170 H 170 H Random Glucose Calcium Phosphorus Magnesium Ferritin Lactate Dehydrogenase C-Reactive Protein C. difficile Toxin A&B C. difficile Antigen C. difficile Interpret 03/29/20 03/29/20 03/29/20 20:26 21:58 22:07 WBC RBC Hgb Hct MCV MCH MCHC RDW Plt Count MPV Immature Gran % (Auto) Neut % (Auto) Lymph % (Auto) [place] % (Auto) Eos % (Auto) Baso % (Auto) Lymph # (Auto) [place] # (Auto) Eos # (Auto) Baso # (Auto) Abs Immat Gran (auto) Absolute Neuts (auto) Absolute Nucleated RBC Nucleated RBC % (auto) Smear Tech's Comments ESR D-Dimer VBG pH VBG pCO2 VBG pO2 VBG HCO3 VBG O2 Saturation VBG Base Excess Sodium Potassium Chloride Carbon Dioxide Anion Gap BUN Creatinine Estim Creat Clear Calc Estimated GFR POC Glucose 184 H 166 H Random Glucose Calcium Phosphorus Magnesium Ferritin Lactate Dehydrogenase C-Reactive Protein C. difficile Toxin A&B Negative C. difficile Antigen Negative C. difficile Interpret SEE NOTE 03/29/20 03/30/20 03/30/20 23:01 00:30 01:58 WBC RBC Hgb Hct MCV MCH MCHC RDW Plt Count MPV Immature Gran % (Auto) Neut % (Auto) Lymph % (Auto) [place] % (Auto) Eos % (Auto) Baso % (Auto) Lymph # (Auto) [place] # (Auto) Eos # (Auto) Baso # (Auto) Abs Immat Gran (auto) Absolute Neuts (auto) Absolute Nucleated RBC Nucleated RBC % (auto) Smear Tech's Comments ESR D-Dimer VBG pH VBG pCO2 VBG pO2 VBG HCO3 VBG O2 Saturation VBG Base Excess Sodium Potassium Chloride Carbon Dioxide Anion Gap BUN Creatinine Estim Creat Clear Calc Estimated GFR POC Glucose 179 H 150 H 143 H Random Glucose Calcium Phosphorus Magnesium Ferritin Lactate Dehydrogenase C-Reactive Protein C. difficile Toxin A&B C. difficile Antigen C. difficile Interpret 03/30/20 03/30/20 03/30/20 05:00 05:00 05:00 WBC 8.8 RBC 4.07 L Hgb 11.3 L Hct 34.5 L MCV 84.8 MCH 27.8 MCHC 32.8 RDW 15.5 Plt Count 268 MPV 10.2 Immature Gran % (Auto) 4.3 H Neut % (Auto) 76.2 H Lymph % (Auto) 9.0 L [place] % (Auto) 10.4 Eos % (Auto) 0.0 Baso % (Auto) 0.1 Lymph # (Auto) 0.8 L [place] # (Auto) 0.9 Eos # (Auto) 0.0 Baso # (Auto) 0.0 Abs Immat Gran (auto) 0.38 H Absolute Neuts (auto) 6.7 Absolute Nucleated RBC 0.000 Nucleated RBC % (auto) 0.0 Smear Tech's Comments ESR D-Dimer 604 VBG pH VBG pCO2 VBG pO2 VBG HCO3 VBG O2 Saturation VBG Base Excess Sodium 143 Potassium 3.6 Chloride 112 H Carbon Dioxide 23 Anion Gap 12 BUN 31 H Creatinine 1.03 Estim Creat Clear Calc 87.2 Estimated GFR > 60 POC Glucose Random Glucose 188 H Calcium 7.0 L Phosphorus 3.3 Magnesium 2.1 Ferritin 1882 H Lactate Dehydrogenase 498 H C-Reactive Protein 18.63 H C. difficile Toxin A&B C. difficile Antigen C. difficile Interpret 03/30/20 03/30/20 03/30/20 05:00 05:11 07:12 WBC RBC Hgb Hct MCV MCH MCHC RDW Plt Count MPV Immature Gran % (Auto) Neut % (Auto) Lymph % (Auto) [place] % (Auto) Eos % (Auto) Baso % (Auto) Lymph # (Auto) [place] # (Auto) Eos # (Auto) Baso # (Auto) Abs Immat Gran (auto) Absolute Neuts (auto) Absolute Nucleated RBC Nucleated RBC % (auto) Smear Tech's Comments ESR D-Dimer VBG pH 7.40 VBG pCO2 35 VBG pO2 49 VBG HCO3 22 VBG O2 Saturation 77.0 VBG Base Excess -1.8 Sodium Potassium Chloride Carbon Dioxide Anion Gap BUN Creatinine Estim Creat Clear Calc Estimated GFR POC Glucose 165 H 188 H Random Glucose Calcium Phosphorus Magnesium Ferritin Lactate Dehydrogenase C-Reactive Protein C. difficile Toxin A&B C. difficile Antigen C. difficile Interpret Microbiology Microbiology Results: Microbiology 03/29/20 15:57 Urine Catheterized - Rutledge Catheter Urine Culture - Preliminary No growth to date. 03/28/20 05:30 Stool Stool Culture - Preliminary Normal so far. 03/29/20 15:57 Sputum - Suctioned Gram Stain - Final 03/29/20 15:57 Sputum - Suctioned Sputum Culture - Preliminary No growth to date. 03/26/20 15:51 Urine clean catch - Rutledge Catheter Urine Culture - Final No growth. 03/26/20 11:20 Blood - Venous Blood Culture - Preliminary No growth after 48 hours. 03/26/20 11:20 Blood - Venous Blood Culture - Preliminary No growth after 48 hours. 03/26/20 15:51 Sputum - Suctioned Gram Stain - Final 03/26/20 15:51 Sputum - Suctioned Sputum Culture - Final No growth. Progress Note: A&P Assessment and plan (1) Acute respiratory failure with hypoxia: Status: Acute Assessment and Plan: Assessment: 54-year-old gentleman admitted with acute hypoxic respiratory failure secondary to COVID-19 ARDS, viral septic shock, and diabetic ketoacidosis. Hospital course further complicated by acute critical care encephalopathy. Plan: Neuro: Critical care encephalopathy. Continue with sedation vacation. If no improvement, will consider MRI brain. Cardiac: New diagnosis of diastolic congestive heart failure. Continue with gentle diuresis. Pulmonary: Acute hypoxic respiratory failure secondary to COVID-19 ARDS requiring ventilatory support. Continue to titrate off as tolerated. Renal: No acute issues. Endo: New diagnosis of diabetes mellitus initially presenting with diabetic ketoacidosis, now titrated off insulin drip. Continue with Lantus and sliding scale insulin. GI: No acute issues. ID: COVID 19, continue with dexamethasone. Heme/Onc: No acute issues. Psych: No acute issues. Miscellaneous: No acute issues. Prophylaxis: Lovenox, famotidine Diet: Tube feeds Critical care time spent: 60 minutes (2) Acute respiratory distress syndrome (ARDS) due to COVID-19 virus: Status: Acute (3) Diastolic dysfunction with heart failure: Status: Acute (4) Diabetes mellitus: Status: Acute Time Spent With Patient Total time spent with greater than 50% in coordination of care (as documented) at patient's floor/unit and/or counseling patient:: 0 Critical Care Time Critical Care Time (minutes): 60
[2020-03-30] MEDS: Insulin Lispro 100 UNIT/ML 3 ML VIAL SUBCUT ×3 (12:32→23:46)
[2020-03-30 12:42] LABS: Glucose, Whole Blood 229 mg/dL (60-115)
[2020-03-30] MEDS: propofoL 1,000 MG/100 ML VIAL 16.2 MG IVCONT ×2 (14:18→20:21)
--- NOTE | 2020-03-30 15:10 | PC.NURSE ---
Addendum entered by Tammy Ramires RN 03/30/20 15:25: transitioned off insulin drip, lantus 20units given this am and drip turned off an hour after. POC q6 hours, sliding scale coverage ordered Original Note: pt easily arousable, sedation adjusted, versed discontinued and started on propofol with good effect, remains on fentanyl, positive cough and gag, restraints remain for pt safety. vasopressin stopped and discontinued, levophed adjusted, maps greater than 65/ temp max this shift 100.1, cold wash clothes applied to forheard, temp currently 99.5. pt desatting down to low 80s this am, o2 increased to 80% with good effect, continues on ac settings lasix 20mg iv given x1 this shift, 1400ml urine out this shift tolerating tube feeds, increased to 60ml this shift, continue with water flushes father updated this shift wound consult placed
[2020-03-30] MEDS: Levothyroxine Sodium 100 MCG VIAL 50 MCG IVPUSH (16:16)
[2020-03-30 17:53] LABS: Glucose, Whole Blood 302 mg/dL (60-115)
[2020-03-30] MEDS: Enoxaparin Sodium 40 MG/0.4 ML SYRINGE SUBCUT (19:59)
[2020-03-31] VITALS (32 sets, daily range): BP systolic 85–131; BP diastolic 46–75; PULSE 72–93; RESP 19–28; TEMP 37.3–38.4; O2SAT 88–98; BMI 30.3
[2020-03-31 00:10] LABS: Glucose, Whole Blood 317 mg/dL (60-115)
[2020-03-31] MEDS: propofoL 1,000 MG/100 ML VIAL 16.2 MG IVCONT ×2 (01:34→06:14)
[2020-03-31 05:42] LABS: MANUAL DIFF FLAG NO
[2020-03-31 05:45] LABS: Base Excess VBG 2.6 mmol/L; Basophils Percent Auto 0.3 % (0-2); HCO3 VBG 26 mmol/L; Hematocrit 36.9 % (42-52); Hemoglobin 11.9 g/dl (14.0-18.0); Imm Gran Abs Auto 0.43 X10*3/uL (0.00-0.03); Imm Gran Pct Auto 3.6 % (0.0-0.4); Lymphocytes Absolute Auto 0.9 X10*3/uL (1.2-4.9); Lymphocytes Percent Auto 7.2 % (20-40); Mean Corpuscular HGB Conc 32.2 g/dl (31.0-36.0); Mean Corpuscular Hemoglobin 27.4 pg (27.0-33.0); Mean Platelet Volume 10.3 fL (9.4-12.4); Monocytes Absolute Auto 1.3 X10*3/uL (0.1-1.2); Monocytes Percent Auto 10.9 % (2-11); Neutrophils Absolute Auto 9.3 X10*3/uL (2.0-8.3); PCO2 VBG 37 mmHg; PO2 VBG 57 mmHg; Platelet Count 355 X10*3/uL (160-400); Red Blood Count 4.34 X10*6/uL (4.60-5.80); Red Cell Distribution Width 15.3 % (11.0-16.0); pH VBG 7.45 (7.32-7.43)
[2020-03-31 06:10] LABS: Alanine Aminotransferase 11 U/L (0-40); Albumin Level 2.3 g/dL (3.5-5.0); Alkaline Phosphatase 54 U/L (39-117); Anion Gap 11 (12-20); Aspartate Amino Transferase 26 U/L (5-37); Bilirubin Total 0.6 mg/dL (0.0-1.0); Blood Urea Nitrogen 32 mg/dL (9-16); Calcium 7.3 mg/dL (8.4-10.2); Carbon Dioxide 27 mmol/L (22-29); Chloride 112 mmol/L (96-108); Creatinine Clr Calc Pharmacy 88.3; Estimated Glomerular Filt Rate > 60; Glucose Random 288 mg/dL (60-115); Magnesium 2.4 mg/dL (1.6-2.6); Phosphorus 2.6 mg/dL (2.7-4.5); Potassium 3.8 mmol/L (3.3-5.1); Sodium 146 mmol/L (135-145); Total Protein 5.6 g/dL (6.5-8.0)
[2020-03-31 06:11] LABS: Glucose, Whole Blood 267 mg/dL (60-115)
[2020-03-31] MEDS: Insulin Lispro 100 UNIT/ML 3 ML VIAL SUBCUT ×3 (06:12→17:58)
[2020-03-31] MEDS: Chlorhexidine Gluc Oral Rinse 15 ML MOUTHWASH BUCCAL ×3 (06:14→20:53)
[2020-03-31] MEDS: fentaNYL citrate/NS 1,000 MCG/100 ML PLAST..BAG 10 MCG IVCONT ×2 (06:14→15:58)
[2020-03-31] MEDS: dexAMETHasone sod phosphate 4 MG/ML VIAL 6 MG IVPUSH (07:24)
[2020-03-31] MEDS: Famotidine/PF 20 MG/2 ML VIAL IVPUSH ×2 (07:24→20:53)
[2020-03-31] MEDS: Insulin Glargine,Hum.rec.anlog 100 UNIT/ML 10 ML VIAL 20 UNIT SUBCUT (07:25)
[2020-03-31 07:50] LABS: Estimated Average Glucose 214 mg/dL; Hemoglobin A1c % 9.1 %
[2020-03-31] MEDS: Albumin Human 25 % 100 ML IV ×3 (08:55→20:53)
[2020-03-31] MEDS: Furosemide 20 MG/2 ML VIAL IVPUSH ×2 (08:56→17:51)
[2020-03-31] MEDS: Calcium Gluconate/NaCl,Iso-Osm 2 GM/100 ML PLAST..BAG IV (08:56)
[2020-03-31] MEDS: Potassium Phosphate 30 MMOL in 0.9 % Sodium Chloride 500 ML 85 MMOL IV (08:56)
--- NOTE | 2020-03-31 10:04 | MHC.CLN ---
F/U RECOMMEND TF GLUCERNA AT MAX GOAL RATE 50CC/HR TO PROVIDE 1200KCALS (1770 WITH SEDATION; 23KCALS/KG BASED ON CMW), 50G PROTEIN (.6G/KG), 1504CC FREE WATER FROM FORMULA AND FLUSHES WILL ADD NAYE TO PROMOTE WOUND HEALING MONITOR TOLERANCE, RESIDUALS AND LYTES
[2020-03-31] MEDS: propofoL 1,000 MG/100 ML VIAL 21.6 MG IVCONT ×4 (11:13→20:53)
[2020-03-31 11:28] LABS: Glucose, Whole Blood 329 mg/dL (60-115)
--- NOTE | 2020-03-31 11:35 | MHC.CM.PN ---
Pt remains intubated secondary to COVID complications: FIO2 >50%: No plans for extubation at this time: CM to follow for better assessment of d/c needs including STR vs home with services. Original d/c plan was for a return to home - no services. Pt resides with his parents.
--- NOTE | 2020-03-31 13:09 | PM.CCPN ---
Subjective Subjective Date of Service: 03/31/20 Interval History: 54-year-old gentleman, new diagnosis of insulin-dependent diabetes hospitalized on March 26 2020 with dyspnea and viral septic shock secondary to COVID-19 ARDS complicated by diabetic ketoacidosis requiring vasopressor support, insulin drip, intubation, and ventilatory support. Hospital course further complicated by encephalopathy. No events overnight. No significant changes. Physical Exam Vital Signs: Vital Signs: Last Vital Signs Temp 100.8 F H 03/31/20 12:00 Pulse 84 03/31/20 12:00 Resp 21 H 03/31/20 12:00 BP 102/53 L 03/31/20 12:00 Pulse Ox 90 L 03/31/20 12:00 Body Mass Index 30.3 Const: General: no acute distress and other (Sedated on the vent) Eyes: Sclerae: sclerae normal EOM: EOMs intact bilaterally Neck: Neck: Yes no lymphadenopathy, Yes trachea midline and Yes supple Resp: Auscultation: crackles (Diffuse bilateral) Cardio: Rate: regular rate Rhythm: regular rhythm Heart sounds: no gallops, no murmurs and no rubs GI: Palpation (GI): Soft to palpation and Other GI palpation findings present ( Nontender) Auscultation: normal bowel sounds Extrem: General: Yes no pedal edema, No clubbing and No cyanosis Objective Data Labs CBC & Chem 7: 03/31/20 05:30 03/31/20 05:30 Labs: Laboratory Results - last 24 hr 03/30/20 03/30/20 03/31/20 17:49 23:29 05:30 WBC RBC Hgb Hct MCV MCH MCHC RDW Plt Count MPV Immature Gran % (Auto) Neut % (Auto) Lymph % (Auto) [place] % (Auto) Eos % (Auto) Baso % (Auto) Lymph # (Auto) [place] # (Auto) Eos # (Auto) Baso # (Auto) Abs Immat Gran (auto) Absolute Neuts (auto) Absolute Nucleated RBC Nucleated RBC % (auto) VBG pH VBG pCO2 VBG pO2 VBG HCO3 VBG O2 Saturation VBG Base Excess Sodium Potassium Chloride Carbon Dioxide Anion Gap BUN Creatinine Estim Creat Clear Calc Estimated GFR POC Glucose 302 H 317 H Random Glucose Estimat Average Glucose 214 Hemoglobin A1c % 9.1 Calcium Phosphorus Magnesium Total Bilirubin AST ALT Alkaline Phosphatase Total Protein Albumin 03/31/20 03/31/20 03/31/20 05:30 05:30 05:30 WBC 12.0 H RBC 4.34 L Hgb 11.9 L Hct 36.9 L MCV 85.0 MCH 27.4 MCHC 32.2 RDW 15.3 Plt Count 355 D MPV 10.3 Immature Gran % (Auto) 3.6 H Neut % (Auto) 78.0 H Lymph % (Auto) 7.2 L [place] % (Auto) 10.9 Eos % (Auto) 0.0 Baso % (Auto) 0.3 Lymph # (Auto) 0.9 L [place] # (Auto) 1.3 H Eos # (Auto) 0.0 Baso # (Auto) 0.0 Abs Immat Gran (auto) 0.43 H Absolute Neuts (auto) 9.3 H Absolute Nucleated RBC 0.000 Nucleated RBC % (auto) 0.0 VBG pH 7.45 H VBG pCO2 37 VBG pO2 57 VBG HCO3 26 VBG O2 Saturation 85.0 VBG Base Excess 2.6 Sodium 146 H Potassium 3.8 Chloride 112 H Carbon Dioxide 27 Anion Gap 11 L BUN 32 H Creatinine 1.02 Estim Creat Clear Calc 88.3 Estimated GFR > 60 POC Glucose Random Glucose 288 H D Estimat Average Glucose Hemoglobin A1c % Calcium 7.3 L Phosphorus 2.6 L Magnesium 2.4 Total Bilirubin 0.6 AST 26 D ALT 11 Alkaline Phosphatase 54 D Total Protein 5.6 L Albumin 2.3 L D 03/31/20 03/31/20 06:08 11:15 WBC RBC Hgb Hct MCV MCH MCHC RDW Plt Count MPV Immature Gran % (Auto) Neut % (Auto) Lymph % (Auto) [place] % (Auto) Eos % (Auto) Baso % (Auto) Lymph # (Auto) [place] # (Auto) Eos # (Auto) Baso # (Auto) Abs Immat Gran (auto) Absolute Neuts (auto) Absolute Nucleated RBC Nucleated RBC % (auto) VBG pH VBG pCO2 VBG pO2 VBG HCO3 VBG O2 Saturation VBG Base Excess Sodium Potassium Chloride Carbon Dioxide Anion Gap BUN Creatinine Estim Creat Clear Calc Estimated GFR POC Glucose 267 H 329 H Random Glucose Estimat Average Glucose Hemoglobin A1c % Calcium Phosphorus Magnesium Total Bilirubin AST ALT Alkaline Phosphatase Total Protein Albumin Microbiology Microbiology Results: Microbiology 03/28/20 05:30 Stool Stool Culture - Final 03/29/20 15:57 Urine Catheterized - Rutledge Catheter Urine Culture - Final No growth. 03/29/20 15:57 Sputum - Suctioned Gram Stain - Final 03/29/20 15:57 Sputum - Suctioned Sputum Culture - Preliminary Yeast 03/29/20 16:30 Blood - Venous Blood Culture - Preliminary No growth after 24 hours. 03/29/20 15:05 Blood - Venous Blood Culture - Preliminary No growth after 24 hours. 03/26/20 15:51 Urine clean catch - Rutledge Catheter Urine Culture - Final No growth. 03/26/20 11:20 Blood - Venous Blood Culture - Preliminary No growth after 48 hours. 03/26/20 11:20 Blood - Venous Blood Culture - Preliminary No growth after 48 hours. 03/26/20 15:51 Sputum - Suctioned Gram Stain - Final 03/26/20 15:51 Sputum - Suctioned Sputum Culture - Final No growth. Progress Note: A&P Assessment and plan (1) Diabetes mellitus: Status: Acute Assessment and Plan: Assessment: 54-year-old gentleman admitted with acute hypoxic respiratory failure secondary to COVID-19 ARDS, viral septic shock, and diabetic ketoacidosis. Hospital course further complicated by acute critical care encephalopathy. Plan: Neuro: Critical care encephalopathy. Continue with sedation vacation. If no improvement, will consider MRI brain. Cardiac: New diagnosis of diastolic congestive heart failure. Continue with gentle diuresis. Pulmonary: Acute hypoxic respiratory failure secondary to COVID-19 ARDS requiring ventilatory support. Continue to titrate off as tolerated. Renal: No acute issues. Endo: New diagnosis of diabetes mellitus initially presenting with diabetic ketoacidosis, now titrated off insulin drip. Though underlying hemoglobin A1c is 9 which suggested patient has been diabetic at least for the last 3 months. Continue with Lantus and sliding scale insulin. GI: No acute issues. ID: COVID 19, continue with dexamethasone. Heme/Onc: No acute issues. Psych: No acute issues. Miscellaneous: No acute issues. Prophylaxis: Lovenox, famotidine Diet: Tube feeds Critical care time spent: 60 minutes (2) Acute respiratory distress syndrome (ARDS) due to COVID-19 virus: Status: Acute (3) Diastolic dysfunction with heart failure: Status: Acute (4) Acute respiratory failure with hypoxia: Status: Acute Time Spent With Patient Total time spent with greater than 50% in coordination of care (as documented) at patient's floor/unit and/or counseling patient:: 0 Critical Care Time Critical Care Time (minutes): 60
[2020-03-31] MEDS: Levothyroxine Sodium 100 MCG VIAL 50 MCG IVPUSH (15:57)
[2020-03-31 18:40] LABS: Glucose, Whole Blood 232 mg/dL (60-115)
--- NOTE | 2020-03-31 18:40 | PC.NURSE ---
Patient remains intubated and sedated on ventilator. sedation vacation performed, patient became very restless and asynchronous with ventilator. Desats with turns. Titrated off Levo infusion. T max 101.2. Vitals stable. Will continue to monitor.
[2020-03-31] MEDS: Enoxaparin Sodium 40 MG/0.4 ML SYRINGE SUBCUT (20:54)
[2020-04-01] VITALS (30 sets, daily range): BP systolic 98–148; BP diastolic 54–87; PULSE 71–104; RESP 20–24; TEMP 37.6–39.9; O2SAT 87–99; BMI 29.7
[2020-04-01] MEDS: Cisatracurium Besylate 20 MG/10 ML VIAL IVPUSH ×2 (00:15→20:35)
[2020-04-01] MEDS: fentaNYL citrate/NS 1,000 MCG/100 ML PLAST..BAG 10 MCG IVCONT ×3 (00:52→20:35)
[2020-04-01] MEDS: propofoL 1,000 MG/100 ML VIAL 21.6 MG IVCONT (00:52)
[2020-04-01] MEDS: Albumin Human 25 % 100 ML IV (00:52)
[2020-04-01] MEDS: Insulin Lispro 100 UNIT/ML 3 ML VIAL SUBCUT ×3 (00:54→17:38)
[2020-04-01 00:59] LABS: Glucose, Whole Blood 186 mg/dL (60-115)
[2020-04-01] MEDS: propofoL 1,000 MG/100 ML VIAL 27 MG IVCONT ×6 (04:59→22:21)
[2020-04-01] MEDS: Chlorhexidine Gluc Oral Rinse 15 ML MOUTHWASH BUCCAL ×3 (04:59→19:42)
[2020-04-01 05:30] LABS: Basophils Percent Auto 0.2 % (0-2); Eosinophils Percent Auto 0.3 % (0-4); Hematocrit 33.2 % (42-52); Hemoglobin 10.7 g/dl (14.0-18.0); Imm Gran Abs Auto 0.54 X10*3/uL (0.00-0.03); Imm Gran Pct Auto 4.7 % (0.0-0.4); Lymphocytes Absolute Auto 1.2 X10*3/uL (1.2-4.9); Lymphocytes Percent Auto 10.6 % (20-40); MANUAL DIFF FLAG NO; Mean Corpuscular HGB Conc 32.2 g/dl (31.0-36.0); Mean Corpuscular Volume 86.9 fL (80-98); Mean Platelet Volume 10.2 fL (9.4-12.4); Monocytes Absolute Auto 0.7 X10*3/uL (0.1-1.2); Monocytes Percent Auto 6.1 % (2-11); Neutrophils Absolute Auto 8.9 X10*3/uL (2.0-8.3); Neutrophils Percent Auto 78.1 % (45-73); Platelet Count 295 X10*3/uL (160-400); Red Blood Count 3.82 X10*6/uL (4.60-5.80); Red Cell Distribution Width 15.6 % (11.0-16.0); White Blood Count 11.4 X10*3/uL (4.8-10.8)
[2020-04-01 05:38] LABS: PCO2 VBG 38 mmHg; PO2 VBG 62 mmHg; pH VBG 7.49 (7.32-7.43)
[2020-04-01 05:39] LABS: Base Excess VBG 6.3 mmol/L; HCO3 VBG 29 mmol/L
--- NOTE | 2020-04-01 05:42 | PC.NURSE ---
[id number] Patient having intermittent episodes of hypoxia and vent dysnychrony. Bagged several times, sedation increased, fio2 and peep increased, nimbex gtt started approx 0100. Tube feed on hold. TMAX 103.7, IV APAP given. DTI with blisters noted to coccyx/buttocks.
[2020-04-01 05:59] LABS: Albumin Level 3.2 g/dL (3.5-5.0); Anion Gap 11 (12-20); Blood Urea Nitrogen 32 mg/dL (9-16); Calcium 7.7 mg/dL (8.4-10.2); Carbon Dioxide 31 mmol/L (22-29); Chloride 109 mmol/L (96-108); Creatinine Clr Calc Pharmacy 88.3; Estimated Glomerular Filt Rate > 60; Glucose Random 176 mg/dL (60-115); Magnesium 2.1 mg/dL (1.6-2.6); Phosphorus 2.3 mg/dL (2.7-4.5); Potassium 3.1 mmol/L (3.3-5.1); Sodium 148 mmol/L (135-145)
[2020-04-01] MEDS: dexAMETHasone sod phosphate 4 MG/ML VIAL 6 MG IVPUSH (07:24)
[2020-04-01] MEDS: Famotidine/PF 20 MG/2 ML VIAL IVPUSH ×2 (07:24→19:42)
[2020-04-01] MEDS: Furosemide 20 MG/2 ML VIAL IVPUSH ×2 (07:25→17:37)
[2020-04-01] MEDS: Insulin Glargine,Hum.rec.anlog 100 UNIT/ML 10 ML VIAL 20 UNIT SUBCUT (07:25)
[2020-04-01 08:14] LABS: Glucose, Whole Blood 164 mg/dL (60-115)
[2020-04-01] MEDS: Calcium Gluconate/NaCl,Iso-Osm 2 GM/100 ML PLAST..BAG IV (08:46)
[2020-04-01] MEDS: Potassium Phosphate 30 MMOL in 0.9 % Sodium Chloride 500 ML 85 MMOL IV (09:08)
--- NOTE | 2020-04-01 09:59 | PC.NURSE ---
Addendum entered by Socorro Duarte RN 04/02/20 09:59: Clarification TOF 2 out of 4 at 9 milliamps. Addendum entered by Socorro Duarte RN 04/01/20 16:07: 13:15 Nimbex drip turned off. Patient remains synchronous with the same vent settings. Positive cough and gag. Extremities remain flaccid. Temperature down to 100.2. Ice packs and cool cloth remain in place. Original Note: Patient remains on Fentanyl, Propofol, and Nimbex. Pupils equal 2 and sluggish. Cough present but no gag noted. Extremities flaccid. TOF 9. ET tube 8.0 and 24 @ lip. Small amount of clear inline and oral secretions. Remains on AC settings with a rate of 24, tidal volume of 500, peep 10, and fio2 of 80%. Minute volume 12. Patient currently synchronous with the vent with 02 sats at 95%. Fio2 being titrated see documentation. Temperature trending around 101, MD aware. Repeat Blood cultures drawn. Ice packs and cool cloth applied to patient. Repeat sputum culture to be collected. SBP trending in the low 100s, map >65, remains of pressors. Tube feed remains off due to Nimbex drip. Auscultated placement. BS faint. POC Q6HR. Scheduled Lantus given. Plan to restart feeds once Nimbex drip is stopped. Mg output trending around 50-100 ml/hr. Scheduled Lasix given, mg output of 700 ml following Lasix. Small amount of loose dark brown stool in rectal tube. DTI to coccyx and stage two to bilateral buttock documented. Wound MD on unit for evaluation. Per wound MD, DTI vs COVID Skin see wound MD note. Per wound MD continue with barrier cream, repo q2h, airloss mattress, prevalon mat system with wedges, and heel protector boots already in place. Plan per MD is to titrate Nimbex drip off and evaluate neuros and vent synchronicity.
[2020-04-01 12:08] LABS: Glucose, Whole Blood 192 mg/dL (60-115)
--- NOTE | 2020-04-01 12:11 | P.CDIC_ITS ---
[facility]I Concurrent Query Service Date: 04/01/20 Documentation Clarification: Please clarify if you are treating a proba ble/suspected/likely or confirmed: Specifics: Metabolic encephalopathy Toxic encephalopathy Septic encephalopathy Please specify if known or other Provider Response: Other Other Diagnosis: septic encephalopathy PLEASE DO NOT DELETE/MODIFY EXISTING CONTENT Additional information is needed in order to code to the highest accuracy and appropriate Severity of Illness (SOI). Please clarify the information noted below in your progress notes and discharge summary. Risk Factors/Clinical Indicators/Treatments ICU: 03/30 - critical care encephalopathy, sedation vacation. Metabolic acidosis, DKA, hypoxia, altered mental status. Severe sepsis w shock, vasopressor support, insult drip, intubated and ventilatory support. CDS: Lucía Hawkins CCS, [facility]IS Contact Number: [phone] Please Review the information above and exercise your independent professional judgment in responding to the query. If you concur, pleas document in the PROGRESS NOTES and DISCHARGE SUMMARY. If you do not agree with the query, please document in the query above. THIS QUERY IS PART OF THE PERMANENT MEDICAL RECORD
--- NOTE | 2020-04-01 12:11 | P.CONIM_ITS ---
History of Present Illness Data of Consult Service Date: 04/01/20 Requesting physician: Jose J Mora Primary Care Provider: Unknown Physician HPI Reason for consult: buttock wounds Review of Systems Review of Systems: Yes unobtainable due to endotracheal tube and Unobtainable due to mental status PMFSH Medical History Bronchitis HTN (hypertension) Hyperlipemia Social History Household Members: Unknown / Unable to assess Housing: Unknown / Unable to assess Alcohol intake: unknown Smoking Status: Unknown if ever smoked service: No Current occupational status: employed Meds Allergies Allergy/AdvReac Type Severity Reaction Status Date / Time Penicillins [PENICILLINS] Allergy Unknown ANAPHYLAXIS Unverified 10/31/19 19:50 Active Medications: Current Medications Generic Name Dose Route Start Last Admin Trade Name Freq PRN Reason Stop Dose Admin Chlorhexidine Gluconate 15 ml 03/26/20 13:30 04/01/20 12:10 Chlorhexidine Gluc Oral Rinse 15 Ml Mouthwash BUCCAL 15 ml Q8H FELIPE Administration Dexamethasone Sodium Phosphate 6 mg 03/27/20 09:00 04/01/20 07:24 Dexamethasone Sod Phosphate 4 Mg/Ml Vial IVPUSH 6 mg DAILY FELIPE Administration Enoxaparin Sodium 40 mg 03/30/20 20:00 03/31/20 20:54 Enoxaparin Sodium 40 Mg/0.4 Ml Syringe SUBCUT 40 mg Q24H FELIPE Administration Famotidine 20 mg 03/26/20 21:00 04/01/20 07:24 Famotidine/Pf 20 Mg/2 Ml Vial IVPUSH 20 mg BID FELIPE Administration Furosemide 20 mg 03/31/20 09:00 04/01/20 07:25 Furosemide 20 Mg/2 Ml Vial IVPUSH 20 mg BID@0900,1800 FELIPE Administration Protocol Norepinephrine Bitartrate 8 mg in 250 mls @ 0 mls/hr 03/26/20 13:30 03/31/20 15:30 Levophed IVCONT 0 mcg/kg/min .Q0M FELIPE 0 mls/hr Titration Protocol Per Protocol Fentanyl 1,000 mcg in 100 mls @ 0 mls/hr 03/29/20 08:30 04/01/20 11:50 Sublimaze/Ns IVCONT 100 mcg/hr .Q0M FELIPE 10 mls/hr Administration Protocol Per Protocol Propofol 1,000 mg in 100 mls @ 0 mls/hr 03/30/20 08:15 04/01/20 12:10 Diprivan IVCONT 50 mcg/kg/min .Q0M FELIPE 27 mls/hr Administration Protocol Per Protocol Cisatracurium Besylate 100 mg/ 50 mls @ 5.43 mls/hr 03/31/20 23:30 04/01/20 04:58 IV Miscellaneous Supplies IVCONT 2 mcg/kg/min .Q9H13M FELIPE 5.43 mls/hr Administration 2 MCG/KG/MIN Potassium Phosphate 30 mmol/ 510 mls @ 85 mls/hr 04/01/20 07:56 04/01/20 09:08 Sodium Chloride IV 04/01/20 13:55 85 mls/hr ONCE ONE Administration Insulin Glargine 20 unit 03/30/20 09:30 04/01/20 07:25 Insulin Glargine,Hum.Rec.Anlog 100 Unit/Ml 10 Ml Vial SUBCUT 20 unit DAILY [facility] Administration Insulin Human Lispro 0 unit 03/30/20 12:30 04/01/20 12:09 Insulin Lispro 100 Unit/Ml 3 Ml Vial SUBCUT 2 unit Q6H [facility] Administration Protocol Levothyroxine Sodium 50 mcg 03/26/20 17:00 03/31/20 15:57 Levothyroxine Sodium 100 Mcg Vial IVPUSH 50 mcg DAILY@1700 [facility] Administration Pharmacy Consult 1 each 03/26/20 12:12 Consult Rx Perform Med Rec MISCELLANE ONCE PRN Consult order Home Medications Medication Instructions Recorded Confirmed Last Taken Type aspirin 81 mg PO DAILY 03/25/20 03/26/20 Unknown History atorvastatin 20 mg PO DAILY 03/25/20 03/26/20 Unknown History dulaglutide [Trulicity] 1.5 mg SUBCUT QWEEK 03/25/20 03/26/20 Unknown History empagliflozin [Jardiance] 10 mg PO DAILY 03/25/20 03/26/20 Unknown History levothyroxine 75 mcg PO DAILY 03/25/20 03/26/20 Unknown History lisinopril 2.5 mg PO DAILY 03/25/20 03/26/20 Unknown History metformin 1,000 mg PO BID 03/25/20 03/26/20 Unknown History Physical Exam Vital Signs and Narrative: Vital Signs: Last Vital Signs Temp 100.9 F H 04/01/20 11:59 Pulse 84 04/01/20 11:59 Resp 24 H 04/01/20 11:59 BP 119/65 04/01/20 11:59 Pulse Ox 87 L 04/01/20 11:59 Body Mass Index 29.7 Const: General: patient obtunded (Partially responding) and other (Sedated on the vent) Orientation/consciousness: patient obtunded (Partially responding) Skin: General skin exam: no rashes or lesions noted and mottling (Lower extremity) Neuro: General: patient obtunded (Partially responding) Results Labs CBC and Chem 7: 04/01/20 05:15 04/01/20 05:15 Labs: Laboratory Results - last 24 hr 03/31/20 04/01/20 04/01/20 17:54 00:55 05:15 MCV 86.9 MCH 28.0 MCHC 32.2 RDW 15.6 Plt Count 295 MPV 10.2 Immature Gran % (Auto) 4.7 H Neut % (Auto) 78.1 H Lymph % (Auto) 10.6 L [place] % (Auto) 6.1 Eos % (Auto) 0.3 Baso % (Auto) 0.2 Lymph # (Auto) 1.2 [place] # (Auto) 0.7 Eos # (Auto) 0.0 Baso # (Auto) 0.0 Abs Immat Gran (auto) 0.54 H Absolute Neuts (auto) 8.9 H Absolute Nucleated RBC 0.000 Nucleated RBC % (auto) 0.0 VBG pH VBG pCO2 VBG pO2 VBG HCO3 VBG O2 Saturation VBG Base Excess Anion Gap Estim Creat Clear Calc Estimated GFR POC Glucose 232 H 186 H Random Glucose Calcium Phosphorus Magnesium Albumin 04/01/20 04/01/20 04/01/20 05:15 05:15 07:32 MCV MCH MCHC RDW Plt Count MPV Immature Gran % (Auto) Neut % (Auto) Lymph % (Auto) [place] % (Auto) Eos % (Auto) Baso % (Auto) Lymph # (Auto) [place] # (Auto) Eos # (Auto) Baso # (Auto) Abs Immat Gran (auto) Absolute Neuts (auto) Absolute Nucleated RBC Nucleated RBC % (auto) VBG pH 7.49 H VBG pCO2 38 VBG pO2 62 VBG HCO3 29 VBG O2 Saturation 90.0 VBG Base Excess 6.3 Anion Gap 11 L Estim Creat Clear Calc 88.3 Estimated GFR > 60 POC Glucose 164 H Random Glucose 176 H D Calcium 7.7 L Phosphorus 2.3 L Magnesium 2.1 Albumin 3.2 L D 04/01/20 12:04 MCV MCH MCHC RDW Plt Count MPV Immature Gran % (Auto) Neut % (Auto) Lymph % (Auto) [place] % (Auto) Eos % (Auto) Baso % (Auto) Lymph # (Auto) [place] # (Auto) Eos # (Auto) Baso # (Auto) Abs Immat Gran (auto) Absolute Neuts (auto) Absolute Nucleated RBC Nucleated RBC % (auto) VBG pH VBG pCO2 VBG pO2 VBG HCO3 VBG O2 Saturation VBG Base Excess Anion Gap Estim Creat Clear Calc Estimated GFR POC Glucose 192 H Random Glucose Calcium Phosphorus Magnesium Albumin Imaging Radiologist's Impressions: Impressions Chest X-Ray 03/31/20 22:57 IMPRESSION: Persistent bilateral airspace opacities. No significant change since prior chest x-ray 03/29/2020. Assessment and Plan (1) Diabetes mellitus: Status: Acute Assessment: 54-year-old gentleman admitted with acute hypoxic respiratory failure secondary to COVID-19 ARDS, viral septic shock, and diabetic ketoacidosis. Hospital course further complicated by acute critical care encephalopathy. Plan: Neuro: Critical care encephalopathy. Continue with sedation vacation. If no improvement, will consider MRI brain. Cardiac: New diagnosis of diastolic congestive heart failure. Continue with gentle diuresis. Pulmonary: Acute hypoxic respiratory failure secondary to COVID-19 ARDS requiring ventilatory support. Continue to titrate off as tolerated. Renal: No acute issues. Endo: New diagnosis of diabetes mellitus initially presenting with diabetic ketoacidosis, now titrated off insulin drip. Though underlying hemoglobin A1c is 9 which suggested patient has been diabetic at least for the last 3 months. Continue with Lantus and sliding scale insulin. GI: No acute issues. ID: COVID 19, continue with dexamethasone. Heme/Onc: No acute issues. Psych: No acute issues. Miscellaneous: No acute issues. Prophylaxis: Lovenox, famotidine Diet: Tube feeds Critical care time spent: 60 minutes (2) Acute respiratory distress syndrome (ARDS) due to COVID-19 virus: Status: Acute (3) Diastolic dysfunction with heart failure: Status: Acute (4) Acute respiratory failure with hypoxia: Status: Acute
--- NOTE | 2020-04-01 12:11 | PM.CCPN ---
Subjective Subjective Date of Service: 04/01/20 Interval History: 54-year-old gentleman, new diagnosis of insulin-dependent diabetes hospitalized on March 26 2020 with dyspnea and viral septic shock secondary to COVID-19 ARDS complicated by diabetic ketoacidosis requiring vasopressor support, insulin drip, intubation, and ventilatory support. Hospital course further complicated by encephalopathy. Overnight with poor ventilator synchrony requiring initiation of a paralytic drip. Physical Exam Vital Signs: Vital Signs: Last Vital Signs Temp 100.9 F H 04/01/20 11:59 Pulse 84 04/01/20 11:59 Resp 24 H 04/01/20 11:59 BP 119/65 04/01/20 11:59 Pulse Ox 87 L 04/01/20 11:59 Body Mass Index 29.7 Const: General: no acute distress and other (Sedated on the vent) Eyes: Sclerae: sclerae normal Neck: Neck: Yes no lymphadenopathy, Yes trachea midline and Yes supple Resp: Auscultation: crackles (Diffuse bilateral) Cardio: Rate: regular rate Rhythm: regular rhythm Heart sounds: no gallops, no murmurs and no rubs GI: Palpation (GI): Soft to palpation and Other GI palpation findings present ( Nontender) Auscultation: normal bowel sounds Extrem: General: No clubbing, No cyanosis and Yes edema (Trace bilateral) Objective Data Labs CBC & Chem 7: 04/01/20 05:15 04/01/20 05:15 Labs: Laboratory Results - last 24 hr 03/31/20 04/01/20 04/01/20 17:54 00:55 05:15 WBC 11.4 H RBC 3.82 L Hgb 10.7 L Hct 33.2 L MCV 86.9 MCH 28.0 MCHC 32.2 RDW 15.6 Plt Count 295 MPV 10.2 Immature Gran % (Auto) 4.7 H Neut % (Auto) 78.1 H Lymph % (Auto) 10.6 L [place] % (Auto) 6.1 Eos % (Auto) 0.3 Baso % (Auto) 0.2 Lymph # (Auto) 1.2 [place] # (Auto) 0.7 Eos # (Auto) 0.0 Baso # (Auto) 0.0 Abs Immat Gran (auto) 0.54 H Absolute Neuts (auto) 8.9 H Absolute Nucleated RBC 0.000 Nucleated RBC % (auto) 0.0 VBG pH VBG pCO2 VBG pO2 VBG HCO3 VBG O2 Saturation VBG Base Excess Sodium Potassium Chloride Carbon Dioxide Anion Gap BUN Creatinine Estim Creat Clear Calc Estimated GFR POC Glucose 232 H 186 H Random Glucose Calcium Phosphorus Magnesium Albumin 04/01/20 04/01/20 04/01/20 05:15 05:15 07:32 WBC RBC Hgb Hct MCV MCH MCHC RDW Plt Count MPV Immature Gran % (Auto) Neut % (Auto) Lymph % (Auto) [place] % (Auto) Eos % (Auto) Baso % (Auto) Lymph # (Auto) [place] # (Auto) Eos # (Auto) Baso # (Auto) Abs Immat Gran (auto) Absolute Neuts (auto) Absolute Nucleated RBC Nucleated RBC % (auto) VBG pH 7.49 H VBG pCO2 38 VBG pO2 62 VBG HCO3 29 VBG O2 Saturation 90.0 VBG Base Excess 6.3 Sodium 148 H Potassium 3.1 L Chloride 109 H Carbon Dioxide 31 H Anion Gap 11 L BUN 32 H Creatinine 1.01 Estim Creat Clear Calc 88.3 Estimated GFR > 60 POC Glucose 164 H Random Glucose 176 H D Calcium 7.7 L Phosphorus 2.3 L Magnesium 2.1 Albumin 3.2 L D 04/01/20 12:04 WBC RBC Hgb Hct MCV MCH MCHC RDW Plt Count MPV Immature Gran % (Auto) Neut % (Auto) Lymph % (Auto) [place] % (Auto) Eos % (Auto) Baso % (Auto) Lymph # (Auto) [place] # (Auto) Eos # (Auto) Baso # (Auto) Abs Immat Gran (auto) Absolute Neuts (auto) Absolute Nucleated RBC Nucleated RBC % (auto) VBG pH VBG pCO2 VBG pO2 VBG HCO3 VBG O2 Saturation VBG Base Excess Sodium Potassium Chloride Carbon Dioxide Anion Gap BUN Creatinine Estim Creat Clear Calc Estimated GFR POC Glucose 192 H Random Glucose Calcium Phosphorus Magnesium Albumin Microbiology Microbiology Results: Microbiology 03/29/20 15:57 Sputum - Suctioned Gram Stain - Final 03/29/20 15:57 Sputum - Suctioned Sputum Culture - Final Lexi albicans 03/29/20 16:30 Blood - Venous Blood Culture - Preliminary No growth after 48 hours. 03/29/20 15:05 Blood - Venous Blood Culture - Preliminary No growth after 48 hours. 03/26/20 11:20 Blood - Venous Blood Culture - Final No growth after 5 days. 03/26/20 11:20 Blood - Venous Blood Culture - Final No growth after 5 days. 03/28/20 05:30 Stool Stool Culture - Final 03/29/20 15:57 Urine Catheterized - [place] Catheter Urine Culture - Final No growth. 03/26/20 15:51 Urine clean catch - [place] Catheter Urine Culture - Final No growth. 03/26/20 15:51 Sputum - Suctioned Gram Stain - Final 03/26/20 15:51 Sputum - Suctioned Sputum Culture - Final No growth. Progress Note: A&P Assessment and plan (1) Diabetes mellitus: Status: Acute Assessment and Plan: Assessment: 54-year-old gentleman admitted with acute hypoxic respiratory failure secondary to COVID-19 ARDS, viral septic shock, and diabetic ketoacidosis. Hospital course further complicated by acute critical care encephalopathy. Plan: Neuro: Critical care encephalopathy. Continue with sedation vacation. Cardiac: New diagnosis of diastolic congestive heart failure. Continue with gentle diuresis. Pulmonary: Acute hypoxic respiratory failure secondary to COVID-19 ARDS requiring ventilatory support. Continue to titrate off as tolerated. Renal: No acute issues. Endo: New diagnosis of diabetes mellitus initially presenting with diabetic ketoacidosis, now titrated off insulin drip. Though underlying hemoglobin A1c is 9 which suggested patient has been diabetic at least for the last 3 months. Continue with Lantus and sliding scale insulin. GI: No acute issues. ID: COVID 19, continue with dexamethasone for total of 10 days. Heme/Onc: No acute issues. Psych: No acute issues. Miscellaneous: No acute issues. Prophylaxis: Lovenox, famotidine Diet: Tube feeds Critical care time spent: 60 minutes (2) Acute respiratory distress syndrome (ARDS) due to COVID-19 virus: Status: Acute (3) ARDS (adult respiratory distress syndrome): Status: Acute (4) Pneumonia due to COVID-19 virus: Status: Acute Time Spent With Patient Total time spent with greater than 50% in coordination of care (as documented) at patient's floor/unit and/or counseling patient:: 0 Critical Care Time Critical Care Time (minutes): 60
--- NOTE | 2020-04-01 13:29 | HO.WOUNDCONS ---
History of Present Illness Data of Consult Service Date: 04/01/20 Requesting physician: Jose J Mora Primary Care Provider: Unknown Physician HPI Reason for consult: Sacral wound The patient is a 54-year-old male who was positive for COVID on a ventilator currently recently wean off pressors but having issues with responsiveness following commands when sedation is lightened up. Unable to be weaned in regard to his high FI O2 intake and as a result unable to undergo extubation. Recently noted to have purplish some skin breakdown in the sacral area superficial mildly blanching. Great care has been taken to protect patient's pressure point as in regard to his heels and buttock areas. Nurses are using special mattresses to rotate from side to side regularly Review of Systems Review of Systems: Yes unobtainable due to endotracheal tube and Unobtainable due to mental status PMFSH Medical History Bronchitis HTN (hypertension) Hyperlipemia Social History Household Members: Unknown / Unable to assess Housing: Unknown / Unable to assess Alcohol intake: unknown Smoking Status: Unknown if ever smoked service: No Current occupational status: employed Meds Allergies Allergy/AdvReac Type Severity Reaction Status Date / Time Penicillins [PENICILLINS] Allergy Unknown ANAPHYLAXIS Unverified 10/31/19 19:50 Active Medications: Current Medications Generic Name Dose Route Start Last Admin Trade Name Freq PRN Reason Stop Dose Admin Chlorhexidine Gluconate 15 ml 03/26/20 13:30 04/01/20 12:10 Chlorhexidine Gluc Oral Rinse 15 Ml Mouthwash BUCCAL 15 ml Q8H FELIPE Administration Dexamethasone Sodium Phosphate 6 mg 03/27/20 09:00 04/01/20 07:24 Dexamethasone Sod Phosphate 4 Mg/Ml Vial IVPUSH 6 mg DAILY FELIPE Administration Enoxaparin Sodium 40 mg 03/30/20 20:00 03/31/20 20:54 Enoxaparin Sodium 40 Mg/0.4 Ml Syringe SUBCUT 40 mg Q24H FELIPE Administration Famotidine 20 mg 03/26/20 21:00 04/01/20 07:24 Famotidine/Pf 20 Mg/2 Ml Vial IVPUSH 20 mg BID FELIPE Administration Furosemide 20 mg 03/31/20 09:00 04/01/20 07:25 Furosemide 20 Mg/2 Ml Vial IVPUSH 20 mg BID@0900,1800 [facility] Administration Protocol Norepinephrine Bitartrate 8 mg in 250 mls @ 0 mls/hr 03/26/20 13:30 03/31/20 15:30 Levophed IVCONT 0 mcg/kg/min .Q0M FELIPE 0 mls/hr Titration Protocol Per Protocol Fentanyl 1,000 mcg in 100 mls @ 0 mls/hr 03/29/20 08:30 04/01/20 11:50 Sublimaze/Ns IVCONT 100 mcg/hr .Q0M FELIPE 10 mls/hr Administration Protocol Per Protocol Propofol 1,000 mg in 100 mls @ 0 mls/hr 03/30/20 08:15 04/01/20 12:56 Diprivan IVCONT 50 mcg/kg/min .Q0M FELIPE 27 mls/hr Administration Protocol Per Protocol Cisatracurium Besylate 100 mg/ 50 mls @ 5.43 mls/hr 03/31/20 23:30 04/01/20 13:18 IV Miscellaneous Supplies IVCONT 0 mcg/kg/min .Q9H13M FELIPE 0 mls/hr Infusion 2 MCG/KG/MIN Potassium Phosphate 30 mmol/ 510 mls @ 85 mls/hr 04/01/20 07:56 04/01/20 09:08 Sodium Chloride IV 04/01/20 13:55 85 mls/hr ONCE ONE Administration Insulin Glargine 20 unit 03/30/20 09:30 04/01/20 07:25 Insulin Glargine,Hum.Rec.Anlog 100 Unit/Ml 10 Ml Vial SUBCUT 20 unit DAILY [facility] Administration Insulin Human Lispro 0 unit 03/30/20 12:30 04/01/20 12:09 Insulin Lispro 100 Unit/Ml 3 Ml Vial SUBCUT 2 unit Q6H [facility] Administration Protocol Levothyroxine Sodium 50 mcg 03/26/20 17:00 03/31/20 15:57 Levothyroxine Sodium 100 Mcg Vial IVPUSH 50 mcg DAILY@1700 [facility] Administration Pharmacy Consult 1 each 03/26/20 12:12 Consult Rx Perform Med Rec MISCELLANE ONCE PRN Consult order Home Medications Medication Instructions Recorded Confirmed Last Taken Type aspirin 81 mg PO DAILY 03/25/20 03/26/20 Unknown History atorvastatin 20 mg PO DAILY 03/25/20 03/26/20 Unknown History dulaglutide [Trulicity] 1.5 mg SUBCUT QWEEK 03/25/20 03/26/20 Unknown History empagliflozin [Jardiance] 10 mg PO DAILY 03/25/20 03/26/20 Unknown History levothyroxine 75 mcg PO DAILY 03/25/20 03/26/20 Unknown History lisinopril 2.5 mg PO DAILY 03/25/20 03/26/20 Unknown History metformin 1,000 mg PO BID 03/25/20 03/26/20 Unknown History Physical Exam Vital Signs and Narrative: Vital Signs: Last Vital Signs Temp 100.8 F H 04/01/20 13:00 Pulse 81 04/01/20 13:00 Resp 24 H 04/01/20 13:00 BP 123/66 04/01/20 13:00 Pulse Ox 90 L 04/01/20 13:00 Body Mass Index 29.7 Const: General: cooperative, no acute distress, ill appearing, lethargic and other (Sedated on the vent) Orientation/consciousness: lethargic HENMT: Head: Yes normal to inspection, Yes normocephalic and Yes atraumatic General nose exam: Normal external nose present Skin: Other: the sacral area has about a 2x3 area of purplish tissue nonblanching no surrounding erythema. there is a small superficial blister type elevation of the epidermis in a small area centrally. no evidence of infection Results Labs CBC and Chem 7: 04/01/20 05:15 04/01/20 05:15 Labs: Laboratory Results - last 24 hr 03/31/20 04/01/20 04/01/20 17:54 00:55 05:15 MCV 86.9 MCH 28.0 MCHC 32.2 RDW 15.6 Plt Count 295 MPV 10.2 Immature Gran % (Auto) 4.7 H Neut % (Auto) 78.1 H Lymph % (Auto) 10.6 L [place] % (Auto) 6.1 Eos % (Auto) 0.3 Baso % (Auto) 0.2 Lymph # (Auto) 1.2 [place] # (Auto) 0.7 Eos # (Auto) 0.0 Baso # (Auto) 0.0 Abs Immat Gran (auto) 0.54 H Absolute Neuts (auto) 8.9 H Absolute Nucleated RBC 0.000 Nucleated RBC % (auto) 0.0 VBG pH VBG pCO2 VBG pO2 VBG HCO3 VBG O2 Saturation VBG Base Excess Anion Gap Estim Creat Clear Calc Estimated GFR POC Glucose 232 H 186 H Random Glucose Calcium Phosphorus Magnesium Albumin 04/01/20 04/01/20 04/01/20 05:15 05:15 07:32 MCV MCH MCHC RDW Plt Count MPV Immature Gran % (Auto) Neut % (Auto) Lymph % (Auto) [place] % (Auto) Eos % (Auto) Baso % (Auto) Lymph # (Auto) [place] # (Auto) Eos # (Auto) Baso # (Auto) Abs Immat Gran (auto) Absolute Neuts (auto) Absolute Nucleated RBC Nucleated RBC % (auto) VBG pH 7.49 H VBG pCO2 38 VBG pO2 62 VBG HCO3 29 VBG O2 Saturation 90.0 VBG Base Excess 6.3 Anion Gap 11 L Estim Creat Clear Calc 88.3 Estimated GFR > 60 POC Glucose 164 H Random Glucose 176 H D Calcium 7.7 L Phosphorus 2.3 L Magnesium 2.1 Albumin 3.2 L D 04/01/20 12:04 MCV MCH MCHC RDW Plt Count MPV Immature Gran % (Auto) Neut % (Auto) Lymph % (Auto) [place] % (Auto) Eos % (Auto) Baso % (Auto) Lymph # (Auto) [place] # (Auto) Eos # (Auto) Baso # (Auto) Abs Immat Gran (auto) Absolute Neuts (auto) Absolute Nucleated RBC Nucleated RBC % (auto) VBG pH VBG pCO2 VBG pO2 VBG HCO3 VBG O2 Saturation VBG Base Excess Anion Gap Estim Creat Clear Calc Estimated GFR POC Glucose 192 H Random Glucose Calcium Phosphorus Magnesium Albumin Imaging Radiologist's Impressions: Impressions Chest X-Ray 03/31/20 22:57 IMPRESSION: Persistent bilateral airspace opacities. No significant change since prior chest x-ray 03/29/2020. Assessment and Plan (1) Diabetes mellitus: Status: Acute Assessment: 54-year-old gentleman admitted with acute hypoxic respiratory failure secondary to COVID-19 ARDS, viral septic shock, and diabetic ketoacidosis. Hospital course further complicated by acute critical care encephalopathy. Pt has sacral wound due to Deep Tissue injury and combination of skin changes due to covid phenomena pt has been intubated and on pressors making him vulnerable to injury and areas of skin with covid patients have thrombotic vasculopathy which lead to purplish color changes and skin breakdown, superficial. optimize moving and rotation, pressure protective beds/mattress - already done medical management as to wean off pressors and increase oxygenation of soft tissues - unfortunately pt still requriing ventilator with high FiO2. barrier cream to wound with foam protective dressing. Critical care time spent: 60 minutes (2) Acute respiratory distress syndrome (ARDS) due to COVID-19 virus: Status: Acute (3) Diastolic dysfunction with heart failure: Status: Acute (4) Acute respiratory failure with hypoxia: Status: Acute (5) Pneumonia due to COVID-19 virus: Status: Acute (6) ARDS (adult respiratory distress syndrome): Status: Acute
[2020-04-01] MEDS: Levothyroxine Sodium 100 MCG VIAL 50 MCG IVPUSH (16:47)
[2020-04-01 18:09] LABS: Glucose, Whole Blood 184 mg/dL (60-115)
[2020-04-01] MEDS: Enoxaparin Sodium 40 MG/0.4 ML SYRINGE SUBCUT (19:43)
--- NOTE | 2020-04-01 20:26 | PC.RT ---
upon arrival pt is on current vent settings, pt does desat at times but with medication seems to calm down with improvements in SATS. pt temp is 100.4 warm to touch. no chnages made at this time, will continue to monitor
[2020-04-02] VITALS (31 sets, daily range): BP systolic 94–147; BP diastolic 54–77; PULSE 24–97; RESP 24; TEMP 36.9–39.6; O2SAT 86–100
[2020-04-02 00:20] LABS: Glucose, Whole Blood 153 mg/dL (60-115)
[2020-04-02] MEDS: propofoL 1,000 MG/100 ML VIAL 27 MG IVCONT ×7 (01:53→23:03)
[2020-04-02 05:26] LABS: Hematocrit 34.8 % (42-52); Hemoglobin 11.2 g/dl (14.0-18.0); Mean Corpuscular HGB Conc 32.2 g/dl (31.0-36.0); Mean Corpuscular Hemoglobin 28.2 pg (27.0-33.0); Mean Corpuscular Volume 87.7 fL (80-98); Mean Platelet Volume 9.9 fL (9.4-12.4); Platelet Count 272 X10*3/uL (160-400); Red Blood Count 3.97 X10*6/uL (4.60-5.80); Red Cell Distribution Width 15.2 % (11.0-16.0); White Blood Count 11.8 X10*3/uL (4.8-10.8)
[2020-04-02 05:27] LABS: Base Excess VBG 7.7 mmol/L; HCO3 VBG 29 mmol/L; PCO2 VBG 31 mmHg; PO2 VBG 46 mmHg; pH VBG 7.57 (7.32-7.43)
[2020-04-02] MEDS: fentaNYL citrate/NS 1,000 MCG/100 ML PLAST..BAG 10 MCG IVCONT ×2 (05:34→15:20)
[2020-04-02] MEDS: Chlorhexidine Gluc Oral Rinse 15 ML MOUTHWASH BUCCAL ×3 (05:34→19:57)
[2020-04-02 05:47] LABS: Band Neutrophils Percent 11 % (3-5); Lymphocytes Absolute Manual 1.1 X10*3/uL (0.6-4.8); Lymphocytes Percent Manual 9 % (20-40); Metamyelocytes Absolute 0.2 X10*3/uL; Metamyelocytes Percent 2 %; Monocytes Absolute Manual 0.5 X10*3/uL (0.0-1.2); Monocytes Percent Manual 4 % (2-11); Neutrophils Percent Manual 74 % (45-73)
[2020-04-02 05:48] LABS: Anion Gap 17 (12-20); Blood Urea Nitrogen 29 mg/dL (9-16); Calcium 7.5 mg/dL (8.4-10.2); Carbon Dioxide 28 mmol/L (22-29); Chloride 106 mmol/L (96-108); Creatinine Clr Calc Pharmacy 83.4; Estimated Glomerular Filt Rate > 60; Glucose Random 176 mg/dL (60-115); Phosphorus 2.7 mg/dL (2.7-4.5); Platelet Estimate NORMAL (NORMAL); Platelet Morphology Comment NORMAL; Potassium 3.1 mmol/L (3.3-5.1); RBC Morphology NORMAL; Sodium 148 mmol/L (135-145); Toxic Vacuolation PRESENT
[2020-04-02] MEDS: Famotidine/PF 20 MG/2 ML VIAL IVPUSH ×2 (07:26→19:57)
[2020-04-02] MEDS: Furosemide 20 MG/2 ML VIAL IVPUSH ×2 (07:26→17:58)
[2020-04-02] MEDS: dexAMETHasone sod phosphate 4 MG/ML VIAL 6 MG IVPUSH (07:26)
[2020-04-02] MEDS: Insulin Glargine,Hum.rec.anlog 100 UNIT/ML 10 ML VIAL 20 UNIT SUBCUT (07:27)
[2020-04-02 08:13] LABS: Glucose, Whole Blood 184 mg/dL (60-115)
[2020-04-02] MEDS: Albumin Human 25 % 100 ML IV ×3 (08:56→19:56)
[2020-04-02] MEDS: Potassium Chloride/H20 40 MEQ/100 ML PIGGYBACK 100 MEQ IV (08:56)
--- NOTE | 2020-04-02 10:00 | CA_ITS ---
Transthoracic Echocardiogram Patient (Last, First, Middle): Yuniel Andrade, Gender: Male Date of : 1965 Age: 54 Procedure Date: 04/02/2020 Procedure Type: Transthoracic Echocardiogram Location: ICU Height: 172.72 cm Weight: 88.45 kg BSA: 2.02 m2 Heart Rate: bpm BP: 131 / 77 mmHg Drupal Architect: YO Referring MD: Jose J Mora MD Symptoms: chf Study Quality: Fair/Contrast Conclusions: - Limited echo cardiogram. - Normal biventricular function. - Diastolic function is normal for age. Findings Procedure Information Contrast agent, definity, is being given per protocol without apparent complications. Left Ventricle Normal left ventricular size, thickness, systolic function, and wall motion. The visually estimated ejection fraction is between 60-65%. Diastolic function is normal for age. Right Ventricle Normal right ventricular cavity size and systolic function. Tricuspid Valve Indeterminate right atrial pressure. PASP = 23 mm Hg + Right atrial pressure (indeterminate as patient is on ventilator). Venous The inferior vena cava is dilated and does not collapse with inspiration. Pericardium/Pleural There is no evidence of pericardial effusion. Prior Study Comparison No prior study available for comparison. Measurements 2D Linear Measurements IVSd: 1.02 0.6-0.9/0.6-1.0 cm LVIDd: 4.20 3.9-5.3/4.2-5.9 cm LVIDd Index: 2.08 2.4-3.2/2.2-3.1 cm/m2 LVIDs: 2.63 2.0-3.6 cm LVPWd: 1.04 0.7-1.1 cm LV Mass: 178.08 67-162/88-224 g LV Mass Index: 88.16 43-95/49-115 g/m2 Mitral Valve MV Pk E: 0.75 MV PK A: 0.55 MV Decel Time: 261.00 E/A: 1.40 E'Lateral: 12.60 E'Medial: 7.07 E/E' Med: 10.60 E/E' Lat: 5.90 PHT: 76.00 MVA PHT: 2.[address] [place]: 2.87 Diastolic Function MV Pk E: 0.75 MV Pk A: 0.55 E/A: 1.40 E'Medial: 7.07 E/E' Med: 10.60 E' Laterial: 12.60 E/E' Lat: 5.90 Tricuspid Valve TR Pk Jose: 2.40 TR Pk Grad: 23.00 Updated in Other Vendor System with Status of Final Wolfgang Ardon MD electronically signed on 04/02/2020 2:38:50 PM with status of Final
[2020-04-02] MEDS: Insulin Lispro 100 UNIT/ML 3 ML VIAL SUBCUT ×2 (11:49→17:58)
--- NOTE | 2020-04-02 11:55 | MHC.CLN ---
f/u tf on hold r/t use of paralytics RECOMMEND TF GLUCERNA AT MAX GOAL RATE 50CC/HR TO PROVIDE 1200KCALS (1913 WITH SEDATION; 25KCALS/KG BASED ON CMW), 50G PROTEIN (.6G/KG), 1504CC FREE WATER FROM FORMULA AND FLUSHES NAYE TO PROMOTE WOUND HEALING MONITOR TOLERANCE, RESIDUALS AND LYTES
[2020-04-02] MEDS: Zinc Oxide 20% Ointment 28.35 GM TUBE 1 APPL TOPICAL (13:54)
--- NOTE | 2020-04-02 14:26 | P.PNCC_ITS ---
Subjective Subjective Date of Service: 04/02/20 Interval History: 54-year-old gentleman, new diagnosis of insulin-dependent diabetes hospitalized on March 26 2020 with dyspnea and viral septic shock secondary to COVID-19 ARDS complicated by diabetic ketoacidosis requiring vasopressor support, insulin drip, intubation, and ventilatory support. Hospital course further complicated by encephalopathy. Overnight. Still requires paralytic drip on and off for ventilator synchrony. Physical Exam Vital Signs: Vital Signs: Last Vital Signs Temp 99.8 F 04/02/20 14:00 Pulse 77 04/02/20 14:00 Resp 24 H 04/02/20 14:00 BP 104/58 L 04/02/20 14:00 Pulse Ox 91 L 04/02/20 14:00 Body Mass Index 29.7 Const: General: no acute distress and other (Sedated on the vent) Eyes: Sclerae: sclerae normal Neck: Neck: Yes no lymphadenopathy, Yes trachea midline and Yes supple Resp: Effort & Inspection: normal respiratory effort and no respiratory distress Auscultation: clear to auscultation bilaterally Cardio: Rate: regular rate Rhythm: regular rhythm Heart sounds: no gallops, no murmurs and no rubs GI: Palpation (GI): Soft to palpation and Other GI palpation findings present ( Nontender) Auscultation: normal bowel sounds Extrem: General: Yes no pedal edema, No clubbing and No cyanosis Objective Data Labs CBC & Chem 7: 04/02/20 05:15 04/02/20 05:15 Labs: Laboratory Results - last 24 hr 04/01/20 04/02/20 04/02/20 17:35 00:15 05:15 WBC 11.8 H RBC 3.97 L Hgb 11.2 L Hct 34.8 L MCV 87.7 MCH 28.2 MCHC 32.2 RDW 15.2 Plt Count 272 MPV 9.9 Immature Gran % (Auto) Cancelled Neut % (Auto) Cancelled Lymph % (Auto) Cancelled [place] % (Auto) Cancelled Eos % (Auto) Cancelled Baso % (Auto) Cancelled Lymph # (Auto) Cancelled [place] # (Auto) Cancelled Eos # (Auto) Cancelled Baso # (Auto) Cancelled Abs Immat Gran (auto) Cancelled Absolute Neuts (auto) Cancelled Absolute Nucleated RBC 0.000 Nucleated RBC % (auto) 0.0 Neutrophils % (Manual) 74 H Band Neutrophils % 11 H Lymphocytes % (Manual) 9 L Monocytes % (Manual) 4 Metamyelocytes % 2 Abs Neuts (Manual) 10.0 H Lymphocytes # (Manual) 1.1 Monocytes # (Manual) 0.5 Metamyelocytes # 0.2 Toxic Vacuolation PRESENT Platelet Estimate NORMAL Plt Morphology Comment NORMAL RBC Morphology NORMAL VBG pH VBG pCO2 VBG pO2 VBG HCO3 VBG O2 Saturation VBG Base Excess Sodium Potassium Chloride Carbon Dioxide Anion Gap BUN Creatinine Estim Creat Clear Calc Estimated GFR POC Glucose 184 H 153 H Random Glucose Calcium Phosphorus Magnesium Albumin 04/02/20 04/02/20 04/02/20 05:15 05:15 07:35 WBC RBC Hgb Hct MCV MCH MCHC RDW Plt Count MPV Immature Gran % (Auto) Neut % (Auto) Lymph % (Auto) [place] % (Auto) Eos % (Auto) Baso % (Auto) Lymph # (Auto) [place] # (Auto) Eos # (Auto) Baso # (Auto) Abs Immat Gran (auto) Absolute Neuts (auto) Absolute Nucleated RBC Nucleated RBC % (auto) Neutrophils % (Manual) Band Neutrophils % Lymphocytes % (Manual) Monocytes % (Manual) Metamyelocytes % Abs Neuts (Manual) Lymphocytes # (Manual) Monocytes # (Manual) Metamyelocytes # Toxic Vacuolation Platelet Estimate Plt Morphology Comment RBC Morphology VBG pH 7.57 H VBG pCO2 31 VBG pO2 46 VBG HCO3 29 VBG O2 Saturation 78.0 VBG Base Excess 7.7 Sodium 148 H Potassium 3.1 L Chloride 106 Carbon Dioxide 28 Anion Gap 17 BUN 29 H Creatinine 1.07 Estim Creat Clear Calc 83.4 Estimated GFR > 60 POC Glucose 184 H Random Glucose 176 H Calcium 7.5 L Phosphorus 2.7 Magnesium 2.0 Albumin 3.0 L Microbiology Microbiology Results: Microbiology 04/01/20 08:28 Blood - Venous Blood Culture - Preliminary No growth after 24 hours. 04/01/20 08:28 Blood - Venous Blood Culture - Preliminary No growth after 24 hours. 04/01/20 10:51 Sputum - Suctioned Gram Stain - Final 04/01/20 10:51 Sputum - Suctioned Sputum Culture - Preliminary Normal so far. 03/29/20 15:57 Sputum - Suctioned Gram Stain - Final 03/29/20 15:57 Sputum - Suctioned Sputum Culture - Final Lexi albicans 03/29/20 16:30 Blood - Venous Blood Culture - Preliminary No growth after 48 hours. 03/29/20 15:05 Blood - Venous Blood Culture - Preliminary No growth after 48 hours. 03/26/20 11:20 Blood - Venous Blood Culture - Final No growth after 5 days. 03/26/20 11:20 Blood - Venous Blood Culture - Final No growth after 5 days. 03/28/20 05:30 Stool Stool Culture - Final 03/29/20 15:57 Urine Catheterized - Rutledge Catheter Urine Culture - Final No growth. 03/26/20 15:51 Urine clean catch - Rutledge Catheter Urine Culture - Final No growth. 03/26/20 15:51 Sputum - Suctioned Gram Stain - Final 03/26/20 15:51 Sputum - Suctioned Sputum Culture - Final No growth. Progress Note: A&P Assessment and plan (1) Diabetes mellitus: Status: Acute Assessment and Plan: Assessment: 54-year-old gentleman admitted with acute hypoxic respiratory failu re secondary to COVID-19 ARDS, viral septic shock, and diabetic ketoacidosis. Hospital course further complicated by acute critical care encephalopathy. Plan: Neuro: Critical care encephalopathy. Continue with sedation vacation. Cardiac: New diagnosis of diastolic congestive heart failure. Continue with gentle diuresis. Pulmonary: Acute hypoxic respiratory failure secondary to COVID-19 ARDS requiring ventilatory support. Continue to titrate off as tolerated. Renal: No acute issues. Endo: New diagnosis of diabetes mellitus initially presenting with diabetic ketoacidosis, now titrated off insulin drip. Hemoglobin A1c is 9. Continue with Lantus and sliding scale insulin. GI: No acute issues. ID: COVID 19, continue with dexamethasone for total of 10 days. Heme/Onc: No acute issues. Psych: No acute issues. Miscellaneous: No acute issues. Prophylaxis: Lovenox, famotidine Diet: Tube feeds Critical care time spent: 60 minutes (2) Acute respiratory distress syndrome (ARDS) due to COVID-19 virus: Status: Acute (3) Acute respiratory failure with hypoxia: Status: Acute Time Spent With Patient Total time spent with greater than 50% in coordination of care (as documented) at patient's floor/unit and/or counseling patient:: 0 Critical Care Time Critical Care Time (minutes): 60
[2020-04-02 14:27] LABS: Glucose, Whole Blood 215 mg/dL (60-115)
[2020-04-02] MEDS: Levothyroxine Sodium 100 MCG VIAL 50 MCG IVPUSH (15:22)
--- NOTE | 2020-04-02 15:35 | MHC.CM.PN ---
Pt remains intubated in ICU with + COVID: attempting sedation vacation today: new dx of CHF: being managed with IV diuresis: D/C Plan was initially for a return to home, however, the extent and severity of the pt's hospitalization will likely warrant placement. Pt will need to be assessed for functional ability and preferably, weaned off of ventilatory support. MD and ICU RNs have been updating pt's family on progress: CM will contact family re: d/c once needs are better known CM will follow.
[2020-04-02 17:59] LABS: Glucose, Whole Blood 222 mg/dL (60-115)
--- NOTE | 2020-04-02 18:28 | PC.NURSE ---
Patient remains on Propofol and Fentanyl. Nimbex drip stopped around 10:20 this am per MD. Patient still flaccid. Bilateral pupils around a two and sluggish. Positive cough and weak gag. Remains on AC settings with a rate of 24, tidal volume 500, peep 8, 70%fio2, minute volume 12. O2 sats trending in the low 90s. Fio2 titrated to 60% per MD, 02 sats trending in the low to mid 80s, fio2 increased back to 70% per MD. O2 sat goal above 88% per MD. ET tube 8.0 and 24@lip. Small cuff leak noted. RT aware and cuff inflated by RT, cuff leak resolved. At start of shift core temperature trending around 101 [address] blanket [address]. Cool packs applied. This evening core temperature 98.6 without additional interventions. Cooling blanket removed. SBP trending in in the low to mid 100s, map >65. Remains off pressors. Tube feed resumed around 1400 at 20 ml/hr. 120 ml water flush given. Rutledge out put trending between 50-100 ml/hr. Increased urine output following scheduled lasix. Rectal tube in place. Zinc cream applied to coccyx per wound MD order. See wound documentation. Repo q2h, airloss mattress, and heel protectors remain in place.
[2020-04-02] MEDS: Enoxaparin Sodium 40 MG/0.4 ML SYRINGE SUBCUT (19:56)
[2020-04-03] VITALS (32 sets, daily range): BP systolic 90–138; BP diastolic 58–89; PULSE 82–125; RESP 22–25; TEMP 37.3–39.7; O2SAT 88–98
--- NOTE | 2020-04-03 | ECG_ITS ---
Test Reason : ? TN Blood Pressure : / mmHG Vent. Rate : 124 BPM Atrial Rate : 124 BPM P-R Int : 072 ms QRS Dur : 072 ms QT Int : 418 ms P-R-T Axes : 056 106 069 degrees QTc Int : 600 ms Sinus tachycardia with short NH Rightward axis Septal infarct , age undetermined ST & T wave abnormality, consider inferior ischemia Abnormal ECG When compared to the previous EKG of septal infarct present Referred By: Jose J Mora Electronically Signed By:Wolfgang Ardon
[2020-04-03] MEDS: Insulin Lispro 100 UNIT/ML 3 ML VIAL SUBCUT ×4 (01:06→23:41)
[2020-04-03] MEDS: fentaNYL citrate/NS 1,000 MCG/100 ML PLAST..BAG 10 MCG IVCONT (01:46)
[2020-04-03 02:13] LABS: Glucose, Whole Blood 236 mg/dL (60-115)
[2020-04-03] MEDS: Cisatracurium Besylate 20 MG/10 ML VIAL IVPUSH (02:32)
[2020-04-03] MEDS: Albumin Human 25 % 100 ML IV (03:13)
[2020-04-03] MEDS: propofoL 1,000 MG/100 ML VIAL 27 MG IVCONT ×6 (03:30→20:59)
[2020-04-03 05:23] LABS: MANUAL DIFF FLAG NO
[2020-04-03 05:25] LABS: Basophils Percent Auto 0.1 % (0-2); Eosinophils Absolute Auto 0.1 X10*3/uL (0.0-0.4); Eosinophils Percent Auto 0.7 % (0-4); Hemoglobin 10.6 g/dl (14.0-18.0); Imm Gran Abs Auto 0.42 X10*3/uL (0.00-0.03); Imm Gran Pct Auto 2.8 % (0.0-0.4); Lymphocytes Absolute Auto 0.9 X10*3/uL (1.2-4.9); Lymphocytes Percent Auto 5.6 % (20-40); Mean Corpuscular HGB Conc 32.1 g/dl (31.0-36.0); Mean Corpuscular Hemoglobin 28.4 pg (27.0-33.0); Mean Corpuscular Volume 88.5 fL (80-98); Mean Platelet Volume 10.2 fL (9.4-12.4); Monocytes Absolute Auto 0.4 X10*3/uL (0.1-1.2); Monocytes Percent Auto 2.4 % (2-11); Neutrophils Absolute Auto 13.4 X10*3/uL (2.0-8.3); Neutrophils Percent Auto 88.4 % (45-73); Platelet Count 244 X10*3/uL (160-400); Red Blood Count 3.73 X10*6/uL (4.60-5.80); Red Cell Distribution Width 15.1 % (11.0-16.0); White Blood Count 15.1 X10*3/uL (4.8-10.8)
[2020-04-03 05:37] LABS: Base Excess VBG 7.9 mmol/L; HCO3 VBG 31 mmol/L; PCO2 VBG 37 mmHg; PO2 VBG 58 mmHg; pH VBG 7.52 (7.32-7.43)
[2020-04-03] MEDS: Chlorhexidine Gluc Oral Rinse 15 ML MOUTHWASH BUCCAL ×3 (05:39→20:58)
[2020-04-03 06:01] LABS: Albumin Level 3.8 g/dL (3.5-5.0); Anion Gap 14 (12-20); Blood Urea Nitrogen 40 mg/dL (9-16); Carbon Dioxide 32 mmol/L (22-29); Chloride 100 mmol/L (96-108); Creatinine Clr Calc Pharmacy 76.3; Estimated Glomerular Filt Rate > 60; Glucose Random 220 mg/dL (60-115); Magnesium 2.2 mg/dL (1.6-2.6); Phosphorus 2.5 mg/dL (2.7-4.5); Potassium 2.8 mmol/L (3.3-5.1); Sodium 143 mmol/L (135-145)
[2020-04-03] MEDS: Potassium Phosphate 30 MMOL in 0.9 % Sodium Chloride 500 ML 85 MMOL IV ×2 (07:08→13:38)
[2020-04-03] MEDS: Furosemide 20 MG/2 ML VIAL IVPUSH (07:15)
[2020-04-03] MEDS: Famotidine/PF 20 MG/2 ML VIAL IVPUSH ×2 (07:15→20:58)
[2020-04-03] MEDS: dexAMETHasone sod phosphate 4 MG/ML VIAL 6 MG IVPUSH (07:15)
[2020-04-03] MEDS: Insulin Glargine,Hum.rec.anlog 100 UNIT/ML 10 ML VIAL 20 UNIT SUBCUT (07:16)
[2020-04-03] MEDS: Potassium Chloride/H20 40 MEQ/100 ML PIGGYBACK 100 MEQ IV (09:20)
[2020-04-03] MEDS: Fluconazole in NaCl,Iso-Osm 400 MG/200 ML PIGGYBACK 100 MG IV (11:00)
[2020-04-03 12:23] LABS: Glucose, Whole Blood 279 mg/dL (60-115)
--- NOTE | 2020-04-03 13:51 | PM.CCPN ---
Subjective Subjective Date of Service: 04/03/20 Interval History: 54-year-old gentleman, new diagnosis of insulin-dependent diabetes hospitalized on March 26 2020 with dyspnea and viral septic shock secondary to COVID-19 ARDS complicated by diabetic ketoacidosis requiring vasopressor support, insulin drip, intubation, and ventilatory support. Hospital course further complicated by encephalopathy. Overnight febrile, sputum culture growing yeast. At approximately 1:00 p.m. with rapid deterioration in O2 saturation requiring manual bagging. Chest x-ray with evidence of a flash pulmonary edema. Given an additional dose of IV Lasix. EKG with new inverted T-waves in inferior leads. Troponin is pending. Concern for a new cardiac event. Given aspirin. Physical Exam Vital Signs: Vital Signs: Last Vital Signs Temp 99.5 F 04/03/20 12:00 Pulse 115 H 04/03/20 13:00 Resp 24 H 04/03/20 13:00 BP 119/69 04/03/20 13:00 Pulse Ox 90 L 04/03/20 13:00 Body Mass Index 29.7 Const: General: no acute distress and other (Sedated on the vent) Eyes: Sclerae: sclerae normal Neck: Neck: Yes no lymphadenopathy, Yes trachea midline and Yes supple Resp: Effort & Inspection: normal respiratory effort and no respiratory distress Auscultation: clear to auscultation bilaterally Cardio: Rate: tachycardic Rhythm: regular rhythm Heart sounds: no gallops, no murmurs and no rubs GI: Palpation (GI): Soft to palpation and Other GI palpation findings present ( Nontender) Auscultation: normal bowel sounds Extrem: General: No clubbing, No cyanosis and Yes edema (trace bilateral) Objective Data Labs CBC & Chem 7: 04/03/20 05:15 04/03/20 05:15 Labs: Laboratory Results - last 24 hr 04/02/20 04/02/20 04/03/20 11:48 17:39 00:40 WBC RBC Hgb Hct MCV MCH MCHC RDW Plt Count MPV Immature Gran % (Auto) Neut % (Auto) Lymph % (Auto) [place] % (Auto) Eos % (Auto) Baso % (Auto) Lymph # (Auto) [place] # (Auto) Eos # (Auto) Baso # (Auto) Abs Immat Gran (auto) Absolute Neuts (auto) Absolute Nucleated RBC Nucleated RBC % (auto) VBG pH VBG pCO2 VBG pO2 VBG HCO3 VBG O2 Saturation VBG Base Excess Sodium Potassium Chloride Carbon Dioxide Anion Gap BUN Creatinine Estim Creat Clear Calc Estimated GFR POC Glucose 215 H 222 H 236 H Random Glucose Calcium Phosphorus Magnesium Albumin 04/03/20 04/03/20 04/03/20 05:15 05:15 05:15 WBC 15.1 H RBC 3.73 L Hgb 10.6 L Hct 33.0 L MCV 88.5 MCH 28.4 MCHC 32.1 RDW 15.1 Plt Count 244 MPV 10.2 Immature Gran % (Auto) 2.8 H Neut % (Auto) 88.4 H Lymph % (Auto) 5.6 L [place] % (Auto) 2.4 Eos % (Auto) 0.7 Baso % (Auto) 0.1 Lymph # (Auto) 0.9 L [place] # (Auto) 0.4 Eos # (Auto) 0.1 Baso # (Auto) 0.0 Abs Immat Gran (auto) 0.42 H Absolute Neuts (auto) 13.4 H Absolute Nucleated RBC 0.000 Nucleated RBC % (auto) 0.0 VBG pH 7.52 H VBG pCO2 37 VBG pO2 58 VBG HCO3 31 VBG O2 Saturation 87.0 VBG Base Excess 7.9 Sodium 143 Potassium 2.8 L Chloride 100 Carbon Dioxide 32 H Anion Gap 14 BUN 40 H Creatinine 1.17 Estim Creat Clear Calc 76.3 Estimated GFR > 60 POC Glucose Random Glucose 220 H Calcium 8.0 L D Phosphorus 2.5 L Magnesium 2.2 Albumin 3.8 D 04/03/20 12:20 WBC RBC Hgb Hct MCV MCH MCHC RDW Plt Count MPV Immature Gran % (Auto) Neut % (Auto) Lymph % (Auto) [place] % (Auto) Eos % (Auto) Baso % (Auto) Lymph # (Auto) [place] # (Auto) Eos # (Auto) Baso # (Auto) Abs Immat Gran (auto) Absolute Neuts (auto) Absolute Nucleated RBC Nucleated RBC % (auto) VBG pH VBG pCO2 VBG pO2 VBG HCO3 VBG O2 Saturation VBG Base Excess Sodium Potassium Chloride Carbon Dioxide Anion Gap BUN Creatinine Estim Creat Clear Calc Estimated GFR POC Glucose 279 H Random Glucose Calcium Phosphorus Magnesium Albumin Microbiology Microbiology Results: Microbiology 04/01/20 08:28 Blood - Venous Blood Culture - Preliminary No growth after 48 hours. 04/01/20 08:28 Blood - Venous Blood Culture - Preliminary No growth after 48 hours. 04/01/20 10:51 Sputum - Suctioned Gram Stain - Final 04/01/20 10:51 Sputum - Suctioned Sputum Culture - Preliminary Yeast 03/29/20 15:57 Sputum - Suctioned Gram Stain - Final 03/29/20 15:57 Sputum - Suctioned Sputum Culture - Final Lexi albicans 03/29/20 16:30 Blood - Venous Blood Culture - Preliminary No growth after 48 hours. 03/29/20 15:05 Blood - Venous Blood Culture - Preliminary No growth after 48 hours. 03/26/20 11:20 Blood - Venous Blood Culture - Final No growth after 5 days. 03/26/20 11:20 Blood - Venous Blood Culture - Final No growth after 5 days. 03/28/20 05:30 Stool Stool Culture - Final 03/29/20 15:57 Urine Catheterized - Rutledge Catheter Urine Culture - Final No growth. 03/26/20 15:51 Urine clean catch - Rutledge Catheter Urine Culture - Final No growth. 03/26/20 15:51 Sputum - Suctioned Gram Stain - Final 03/26/20 15:51 Sputum - Suctioned Sputum Culture - Final No growth. Progress Note: A&P Assessment and plan (1) Diabetes mellitus: Status: Acute Assessment and Plan: Assessment: 54-year-old gentleman admitted with acute hypoxic respiratory failure secondary to COVID-19 ARDS, viral septic shock, and diabetic ketoacidosis. Hospital course further complicated by acute critical care encephalopathy. Plan: Neuro: Critical care encephalopathy. Continue with sedation vacation. Cardiac: New diagnosis of diastolic congestive heart failure. Diuresed. 2D echocardiogram with no evidence of dysfunction. However, today with flash pulmonary edema and newly inverted inferior T-waves. Troponin is pending. Given aspirin. Pulmonary: Acute hypoxic respiratory failure secondary to COVID-19 ARDS requiring ventilatory support. Continue to titrate off as tolerated. Renal: No acute issues. Endo: New diagnosis of diabetes mellitus initially presenting with diabetic ketoacidosis, now titrated off insulin drip. Hemoglobin A1c is 9. Continue with Lantus and sliding scale insulin. GI: No acute issues. ID: COVID 19, treated with dexamethasone. Dexamethasone stopped today secondary to yeast in sputum, being on propofol, and new fevers. Started on fluconazole. Also, with possible aspiration component, Levaquin added as patient is penicillin allergic. Heme/Onc: No acute issues. Psych: No acute issues. Miscellaneous: No acute issues. Prophylaxis: Lovenox, famotidine Diet: Tube feeds Critical care time spent: 60 minutes (2) Acute respiratory distress syndrome (ARDS) due to COVID-19 virus: Status: Acute (3) Pulmonary edema: Status: Acute Time Spent With Patient Total time spent with greater than 50% in coordination of care (as documented) at patient's floor/unit and/or counseling patient:: 0 Critical Care Time Critical Care Time (minutes): 90
[2020-04-03] MEDS: Aspirin 81 MG TAB.CHEW 324 MG PO (14:54)
[2020-04-03] MEDS: Furosemide 40 MG/4 ML VIAL IVPUSH (14:55)
[2020-04-03] MEDS: levoFLOXacin/D5W 750 MG/150 ML PIGGYBACK 100 MG IV (14:55)
[2020-04-03] MEDS: Cisatracurium Besylate 20 MG/10 ML VIAL 10 MG IVPUSH (15:07)
[2020-04-03 15:21] LABS: B Type Natriuretic Peptide 250 pg/mL (<100)
[2020-04-03 15:30] LABS: Anion Gap 16 (12-20); Blood Urea Nitrogen 39 mg/dL (9-16); Calcium 7.6 mg/dL (8.4-10.2); Carbon Dioxide 31 mmol/L (22-29); Chloride 102 mmol/L (96-108); Estimated Glomerular Filt Rate > 60; Glucose Random 325 mg/dL (60-115); Potassium 3.9 mmol/L (3.3-5.1); Sodium 145 mmol/L (135-145)
--- NOTE | 2020-04-03 16:32 | PC.NURSE ---
Addendum entered by Tammy Ramires RN 04/03/20 16:43: stat ekg done and reviewed by MD, stat aspirin 324mg given, stat labs drawn Original Note: Pt on propofol and fentanyl for sedation this am, fentanyl not renewed and off per MD. Pt with cough and gag present, not following commands, off nimbex since this am, o2 sat initially trending 91-93% on ac settings this afternoon, pt starting alarming vent with high peak pressures and coughing, o2 sat quickly dropping down to the 50s, only coming up to 70% with 100% fio2 given, rt at bedside and pt bagged via ambu by RT, nimbex restarted and MD called and at bedside, stat nimbex 10mg ordered and given, attempted to place back on vent but continues not to ventilate, minute volumes 1-2 and quickly de satting again to 70%, pt continues to be bagged via ambu by RT, MD remains with RN at bedside, stat chest xray ordered and at bedside, stat dose of lasix 40mg iv given,/ pt placed back on vent, vent settings adjusted by MD, pt placed on PCV rate 24 insp P 30 peep of 12 and 80% fio2, minute volumes trending 350-390 with minute volumes trending 8-9, fio2 back up to 91-94%, pt continues on nimbex drip, tube feeds off 1700ml of urine output this shift posty lasix family updated by this RN this shift continues with high temps, sputum +yeast, started on iv abx, cooling blanket remains
[2020-04-03 17:25] LABS: Glucose, Whole Blood 285 mg/dL (60-115)
[2020-04-03] MEDS: Levothyroxine Sodium 100 MCG VIAL 50 MCG IVPUSH (17:30)
[2020-04-03] MEDS: Enoxaparin Sodium 40 MG/0.4 ML SYRINGE SUBCUT (20:58)
[2020-04-03 23:24] LABS: Glucose, Whole Blood 203 mg/dL (60-115)
[2020-04-04] VITALS (31 sets, daily range): BP systolic 83–157; BP diastolic 50–88; PULSE 92–144; RESP 22–35; TEMP 37.6–39.7; O2SAT 91–100; BMI 29.5
[2020-04-04] MEDS: propofoL 1,000 MG/100 ML VIAL 21.6 MG IVCONT ×4 (00:28→12:22)
[2020-04-04] MEDS: Acetaminophen Supp 650 MG SUPP.RECT PR ×2 (04:03→12:24)
[2020-04-04] MEDS: Chlorhexidine Gluc Oral Rinse 15 ML MOUTHWASH BUCCAL ×3 (05:19→20:55)
[2020-04-04 05:33] LABS: Glucose, Whole Blood 145 mg/dL (60-115)
[2020-04-04 05:35] LABS: Basophils Percent Auto 0.1 % (0-2); Eosinophils Absolute Auto 0.1 X10*3/uL (0.0-0.4); Eosinophils Percent Auto 0.4 % (0-4); Hematocrit 36.8 % (42-52); Hemoglobin 11.3 g/dl (14.0-18.0); Imm Gran Abs Auto 0.42 X10*3/uL (0.00-0.03); Imm Gran Pct Auto 2.5 % (0.0-0.4); Lymphocytes Absolute Auto 0.6 X10*3/uL (1.2-4.9); Lymphocytes Percent Auto 3.8 % (20-40); Mean Corpuscular HGB Conc 30.7 g/dl (31.0-36.0); Mean Corpuscular Hemoglobin 27.9 pg (27.0-33.0); Mean Corpuscular Volume 90.9 fL (80-98); Mean Platelet Volume 10.4 fL (9.4-12.4); Monocytes Absolute Auto 0.4 X10*3/uL (0.1-1.2); Monocytes Percent Auto 2.4 % (2-11); Neutrophils Absolute Auto 15.2 X10*3/uL (2.0-8.3); Neutrophils Percent Auto 90.8 % (45-73); Platelet Count 216 X10*3/uL (160-400); Red Blood Count 4.05 X10*6/uL (4.60-5.80); Red Cell Distribution Width 15.5 % (11.0-16.0); SCAN SMEAR FLAG 1; White Blood Count 16.8 X10*3/uL (4.8-10.8)
[2020-04-04 05:38] LABS: Base Excess VBG 3.7 mmol/L; HCO3 VBG 28 mmol/L; PCO2 VBG 42 mmHg; PO2 VBG 62 mmHg; pH VBG 7.43 (7.32-7.43)
[2020-04-04 06:03] LABS: Alanine Aminotransferase 21 U/L (0-40); Albumin Level 3.4 g/dL (3.5-5.0); Alkaline Phosphatase 74 U/L (39-117); Anion Gap 17 (12-20); Aspartate Amino Transferase 47 U/L (5-37); Bilirubin Total 0.6 mg/dL (0.0-1.0); Blood Urea Nitrogen 41 mg/dL (9-16); Calcium 7.8 mg/dL (8.4-10.2); Carbon Dioxide 30 mmol/L (22-29); Chloride 105 mmol/L (96-108); Creatinine Clr Calc Pharmacy 80.4; Estimated Glomerular Filt Rate > 60; Glucose Random 220 mg/dL (60-115); MANUAL DIFF FLAG SCAN; Magnesium 2.1 mg/dL (1.6-2.6); Phosphorus 4.3 mg/dL (2.7-4.5); Potassium 3.7 mmol/L (3.3-5.1); SLIDE REVIEW VERIFIED; Sodium 148 mmol/L (135-145); Total Protein 6.9 g/dL (6.5-8.0)
--- NOTE | 2020-04-04 07:02 | PC.NURSE ---
At 0240 patient with increased HR into the 130s, core temp maxed at 101.6. [employer] aware. 650 mg tylenol administered after fecal management system was removed. Patient remained with the cooling blanket and additional ice packs applied. Patient's temp currently at 100.5.
[2020-04-04] MEDS: Insulin Glargine,Hum.rec.anlog 100 UNIT/ML 10 ML VIAL 20 UNIT SUBCUT (08:23)
[2020-04-04] MEDS: Fluconazole in NaCl,Iso-Osm 100 MG in Container,Empty 0 ML 50 MG IV (08:24)
[2020-04-04] MEDS: Furosemide 20 MG/2 ML VIAL IVPUSH (08:24)
[2020-04-04] MEDS: Famotidine/PF 20 MG/2 ML VIAL IVPUSH ×2 (08:24→20:55)
--- NOTE | 2020-04-04 10:09 | P.PNCC_ITS ---
Subjective Subjective Date of Service: 04/04/20 Interval History: ICU day 10 for acute hypoxic respiratory failure, COVID-19 ARDS. 54-year-old gentleman, COVID-19 positive on ER evaluation on 12/02/2020, refused hospitalization secondary to necessity to care for his parents, noted to be a ltered on 03/26/2020 by his father who called an ambulance. Admitted with new diagnosis of insulin-dependent diabetes on March 26 2020 with dyspnea and viral septic shock secondary to COVID-19 ARDS complicated by diabetic ketoacidosis requiring vasopressor support, insulin drip, intubation, and ventilatory support. Hospital course further complicated by encephalopathy. No events overnight. Continues to require paralytic for ventilator synchrony. Physical Exam Vital Signs: Vital Signs: Last Vital Signs Temp 101.7 F H 04/04/20 09:46 Pulse 108 H 04/04/20 09:46 Resp 24 H 04/04/20 09:46 BP 108/66 04/04/20 09:46 Pulse Ox 97 04/04/20 09:46 Body Mass Index 29.5 Const: General: no acute distress and other (Sedated on the vent) Eyes: Sclerae: sclerae normal Neck: Neck: Yes no lymphadenopathy, Yes trachea midline and Yes supple Resp: Auscultation: crackles (Diffuse bilateral) Cardio: Rate: tachycardic Rhythm: regular rhythm Heart sounds: no gallops, no murmurs and no rubs GI: Palpation (GI): Soft to palpation and Other GI palpation findings present ( Nontender) Auscultation: normal bowel sounds Extrem: General: No clubbing, No cyanosis and Yes edema (Trace bilateral) Objective Data Labs CBC & Chem 7: 04/04/20 05:19 04/04/20 05:19 Labs: Laboratory Results - last 24 hr 04/03/20 04/03/20 04/03/20 12:20 14:38 14:38 WBC RBC Hgb Hct MCV MCH MCHC RDW Plt Count MPV Immature Gran % (Auto) Neut % (Auto) Lymph % (Auto) [place] % (Auto) Eos % (Auto) Baso % (Auto) Lymph # (Auto) [place] # (Auto) Eos # (Auto) Baso # (Auto) Abs Immat Gran (auto) Absolute Neuts (auto) Absolute Nucleated RBC Nucleated RBC % (auto) Smear Tech's Comments VBG pH VBG pCO2 VBG pO2 VBG HCO3 VBG O2 Saturation VBG Base Excess Sodium 145 Potassium 3.9 D Chloride 102 Carbon Dioxide 31 H Anion Gap 16 BUN 39 H Creatinine 1.19 Estim Creat Clear Calc 75.0 Estimated GFR > 60 POC Glucose 279 H Random Glucose 325 H D Calcium 7.6 L Phosphorus Magnesium Total Bilirubin AST ALT Alkaline Phosphatase Troponin I High Sens 25.0 D B-Natriuretic Peptide 250 H Total Protein Albumin 04/03/20 04/03/20 04/04/20 17:22 23:20 05:19 WBC 16.8 H RBC 4.05 L Hgb 11.3 L Hct 36.8 L MCV 90.9 MCH 27.9 MCHC 30.7 L RDW 15.5 Plt Count 216 MPV 10.4 Immature Gran % (Auto) 2.5 H Neut % (Auto) 90.8 H Lymph % (Auto) 3.8 L [place] % (Auto) 2.4 Eos % (Auto) 0.4 Baso % (Auto) 0.1 Lymph # (Auto) 0.6 L [place] # (Auto) 0.4 Eos # (Auto) 0.1 Baso # (Auto) 0.0 Abs Immat Gran (auto) 0.42 H Absolute Neuts (auto) 15.2 H Absolute Nucleated RBC 0.000 Nucleated RBC % (auto) 0.0 Smear Tech's Comments VERIFIED VBG pH VBG pCO2 VBG pO2 VBG HCO3 VBG O2 Saturation VBG Base Excess Sodium Potassium Chloride Carbon Dioxide Anion Gap BUN Creatinine Estim Creat Clear Calc Estimated GFR POC Glucose 285 H 203 H Random Glucose Calcium Phosphorus Magnesium Total Bilirubin AST ALT Alkaline Phosphatase Troponin I High Sens B-Natriuretic Peptide Total Protein Albumin 04/04/20 04/04/20 04/04/20 05:19 05:19 05:26 WBC RBC Hgb Hct MCV MCH MCHC RDW Plt Count MPV Immature Gran % (Auto) Neut % (Auto) Lymph % (Auto) [place] % (Auto) Eos % (Auto) Baso % (Auto) Lymph # (Auto) [place] # (Auto) Eos # (Auto) Baso # (Auto) Abs Immat Gran (auto) Absolute Neuts (auto) Absolute Nucleated RBC Nucleated RBC % (auto) Smear Tech's Comments VBG pH 7.43 VBG pCO2 42 VBG pO2 62 VBG HCO3 28 VBG O2 Saturation 86.0 VBG Base Excess 3.7 Sodium 148 H Potassium 3.7 Chloride 105 Carbon Dioxide 30 H Anion Gap 17 BUN 41 H Creatinine 1.11 Estim Creat Clear Calc 80.4 Estimated GFR > 60 POC Glucose 145 H Random Glucose 220 H Calcium 7.8 L Phosphorus 4.3 Magnesium 2.1 Total Bilirubin 0.6 AST 47 H D ALT 21 Alkaline Phosphatase 74 D Troponin I High Sens B-Natriuretic Peptide Total Protein 6.9 D Albumin 3.4 L Microbiology Microbiology Results: Microbiology 04/01/20 10:51 Sputum - Suctioned Gram Stain - Final 04/01/20 10:51 Sputum - Suctioned Sputum Culture - Final Lexi albicans 03/29/20 15:05 Blood - Venous Blood Culture - Final No growth after 5 days. 03/29/20 16:30 Blood - Venous Blood Culture - Final No growth after 5 days. 04/01/20 08:28 Blood - Venous Blood Culture - Preliminary No growth after 48 hours. 04/01/20 08:28 Blood - Venous Blood Culture - Preliminary No growth after 48 hours. 03/29/20 15:57 Sputum - Suctioned Gram Stain - Final 03/29/20 15:57 Sputum - Suctioned Sputum Culture - Final Lexi albicans 03/26/20 11:20 Blood - Venous Blood Culture - Final No growth after 5 days. 03/26/20 11:20 Blood - Venous Blood Culture - Final No growth after 5 days. 03/28/20 05:30 Stool Stool Culture - Final 03/29/20 15:57 Urine Catheterized - Rutledge Catheter Urine Culture - Final No growth. 03/26/20 15:51 Urine clean catch - Rutledge Catheter Urine Culture - Final No growth. 03/26/20 15:51 Sputum - Suctioned Gram Stain - Final 03/26/20 15:51 Sputum - Suctioned Sputum Culture - Final No growth. Progress Note: A&P Assessment and plan (1) Pulmonary edema: Status: Acute Assessment and Plan: Assessment: 54-year-old gentleman admitted with acute hypoxic respiratory failure secondary to COVID-19 ARDS, viral septic shock, and diabetic ketoacidosis. Hospital course further complicated by critical care encephalopathy. Plan: Neuro: Critical care encephalopathy. Cardiac: New diagnosis of diastolic congestive heart failure. Diuresed. 2D echocardiogram with no evidence of dysfunction. However, on 04/03/2020 with flash pulmonary edema and newly inverted inferior T-waves. Troponin negative. Given aspirin. Pulmonary: Acute hypoxic respiratory failure secondary to COVID-19 ARDS requiring ventilatory support. Continue to titrate off as tolerated. On and off paralytic agent for ventilator synchrony. Renal: No acute issues. Endo: New diagnosis of diabetes mellitus initially presenting with diabetic ketoacidosis, now titrated off insulin drip. Hemoglobin A1c is 9. Continue with Lantus and sliding scale insulin. GI: No acute issues. ID: COVID 19, treated with dexamethasone. Lexi albicans in sputum continue on fluconazole for 7 days. Also, with possible aspiration component, Levaquin added as patient is penicillin allergic. Heme/Onc: No acute issues. Psych: No acute issues. Miscellaneous: No acute issues. Prophylaxis: Lovenox, famotidine Diet: Tube feeds Critical care time spent: 60 minutes (2) Diabetes mellitus: Status: Acute (3) Acute respiratory distress syndrome (ARDS) due to COVID-19 virus: Status: Acute (4) Acute respiratory failure with hypoxia: Status: Acute Time Spent With Patient Total time spent with greater than 50% in coordination of care (as documented) at patient's floor/unit and/or counseling patient:: 0 Critical Care Time Critical Care Time (minutes): 60
[2020-04-04] MEDS: fentaNYL citrate/PF 100 MCG/2 ML VIAL IVPUSH (11:46)
[2020-04-04] MEDS: fentaNYL citrate/NS 1,000 MCG/100 ML PLAST..BAG 10 MCG IVCONT (12:09)
[2020-04-04 12:19] LABS: Glucose, Whole Blood 215 mg/dL (60-115)
[2020-04-04] MEDS: Insulin Lispro 100 UNIT/ML 3 ML VIAL SUBCUT ×2 (12:22→18:10)
[2020-04-04] MEDS: Metoprolol Tartrate 5 MG/5 ML VIAL IVPUSH (12:47)
[2020-04-04] MEDS: Adenosine 6 MG/2 ML VIAL IVPUSH (14:20)
[2020-04-04] MEDS: Adenosine 6 MG/2 ML VIAL 12 MG IVPUSH (14:25)
[2020-04-04] MEDS: Esmolol HCl/NaCl Iso 2,500 MG/250 ML IV.SOLN 26.4 MG IVCONT ×2 (14:34→19:53)
[2020-04-04] MEDS: levoFLOXacin/D5W 750 MG/150 ML PIGGYBACK 100 MG IV (15:04)
[2020-04-04] MEDS: propofoL 1,000 MG/100 ML VIAL 27 MG IVCONT ×2 (16:06→19:43)
[2020-04-04] MEDS: Levothyroxine Sodium 100 MCG VIAL 50 MCG IVPUSH (16:53)
--- NOTE | 2020-04-04 16:57 | PC.NURSE ---
S/E Temp max 103.6 - cooling blanket, ice packs, and PRN Tylenol administered - temp down to 102.0 Nimbex off for sedation vacation - HR up to 140's, RR mid 30's, belly breathing Fentanyl 100mcg IVP and gtt ordered and administered with no effect RR 28-32, belly breathing, abdominal muscle use - MD aware - Nimbex to remain off per md Propofol gtt maxed out HR up to 140's - Adenosine 6mg IVP & 12mg IVP administered - started on Esmolol gtt #8 ETT 24cm @ lip - PC rate 20, inspiratory pressure 30, peep 12, 80% FIO2 OGT clamped, NPO, POC q6h - on Lantus & Humalog One large brown BM, liquid Urine output 40-120cc/hr, yellow DTI bilateral buttocks, starting to open, zinc cream applied twice, repo q2hr
[2020-04-04 18:23] LABS: Glucose, Whole Blood 211 mg/dL (60-115)
[2020-04-04] MEDS: Enoxaparin Sodium 40 MG/0.4 ML SYRINGE SUBCUT (19:44)
[2020-04-04 22:04] LABS: Glucose, Whole Blood 218 mg/dL (60-115)
--- NOTE | 2020-04-04 22:50 | P.EN_ITS ---
Event Note Date of Service: 04/04/20 Event Note: At 9:20 p.m. patient started becoming hypoxic after turn and repos ition, placed back on left side. Oxygenation started to improve but patient became bradycardic. As atropine was being pushed, he became pulseless and CPR initiated. See code blue documentation. He received a total of 12 epinephrine, 3 bicarb, 2 ca chloride.. No returned spontaneous circulation after approximately 30 minutes of CPR. Resuscitation efforts stopped at 2158 and patient pronounced . This was likely cardiopulmonary arrest. Healthcare proxy notified father Heratch as well as sister in law Yanira informed of patient passing. Organ donation notifed by nursing. Not ME candidate
--- NOTE | 2020-04-04 23:00 | PM.DDS ---
Discharge Sum: Prov Provider Primary care physician: Unknown Physician Consults: 03/27/20 07:00 Consult to Infectious Diseases Routine Consulting Provider: Mamta Blackwood Reason for consultation: MEROPENEM ORDERED X 1 THIS MORNING Has provider been notified: Yes 03/30/20 15:06 Consult to Wound Care Provider Stat Consulting Provider: Parvin Russell Reason for consultation: open area to buttocks, purple maceration, +covid Discharge Sum: Diag Contributing Factors (1) Pulmonary edema: (2) Diabetes mellitus: (3) Acute respiratory distress syndrome (ARDS) due to COVID-19 virus: (4) Acute respiratory failure with hypoxia: Discharge Sum: Summary Date and Time Date of admission: 03/26/20 13:24 Date of : 04/04/20 Time of : 21:58 Summary Details: 54-year-old gentleman, COVID-19 positive on ER evaluation on 03/25/2020, refused hospitalization secondary to necessity to care for his parents, noted to be altered on 03/26/2020 by his father who called an ambulance. Admitted with new diagnosis of insulin-dependent diabetes on March 26 2020 with dyspnea and viral septic shock secondary to COVID-19 ARDS complicated by diabetic ketoacidosis requiring vasopressor support, insulin drip, intubation, and ventilatory support. Bedside echocardiography performed and demonstrated diastolic dysfunction. Patient hospital course significant for progressive hypoxic acute respiratory failure and intermittent poor synchrony with ventilatory support requiring intermittent paralytic drip. Further hospital course significant for development of flash pulmonary edema on 04/03/2020 with new inversions of inferior lead T-waves. Cardiac markers remained negative and patient was treated with diuretic and aspirin. Unfortunately in the evening of 04/04/2020 patient developed bradycardia and cardiogenic shock likely secondary to an acute myocardial infarction resulting in cardiopulmonary arrest. Cardiopulmonary resuscitation was started immediately, however after approximately 30 minutes of CPR with no changes in underlying rhythm CPR efforts became futile and patient was pronounced at 21:58 on 04/04/2020. Family has been notified. Discharge diagnoses: 1. Acute myocardial infarction 2. Acute hypoxic respiratory failure 3. COVID-19 ARDS 4. Diabetic ketoacidosis 5. Viral sepsis with end-organ dysfunction present on admission 6. Metabolic encephalopathy 7. Flash pulmonary edema Additional Data Attending physician: Jose J Mora MD
--- NOTE | 2020-04-04 23:07 | PC.NURSE ---
2119-after repositioning to right side pt developed hypoxia-sa02 dropped into the 80s and falling into the 70s. the following immediately implemented 1. fio2 increased to 100% 2. midlevel provider summoned to bedside(jc snyder) 3. resp tx summoned to bedside 4. pt returned to flat/semifowlers position 5. hypotension developed sbp in the 80s mmhg 6. esmolol drip off- 6.colormetric indicator checked with+color change 2127-situation continues to deteriorate-developed symptomatic bradycardia- atropine 0.5 mg ivp given 2127-no pulse ecg displays sb 40 bpm-advanced cardiopulmonary initiated-automated jenna compressor implemented- 2157-despite advanced resuscitatory effort pt has become asystolic. the resusicitation terminated and pt has . please refer to code sheet for sequence of events and interventions- 2214-[facility] [employer] notified and case-([id number]) declined 2214-jc snyder manpower development manager notified parents of -
== END 2020-04-05 00:59 | disposition expired | DRG 870 ==
LOC: HO.ED 12:24 → HO.EDOVER 13:34 → HO.ICU 13:37
PROVIDERS: Physician Assistant; Admitting Provider Internal Medicine Cardiovascular Disease; Emergency Provider Internal Medicine; Visit Provider Internal Medicine Pulmonary Disease
DX: A41.9 Sepsis, unspecified organism (principal); U07.1 COVID-19; E11.10 Type 2 diabetes mellitus with ketoacidosis without coma; J12.82 Pneumonia due to coronavirus disease 2019; J80 Acute respiratory distress syndrome; N17.0 Acute kidney failure with tubular necrosis; R65.21 Severe sepsis with septic shock; I50.31 Acute diastolic (congestive) heart failure; G93.41 Metabolic encephalopathy; I21.9 Acute myocardial infarction, unspecified; E87.2 Acidosis; I13.0 Hypertensive heart and chronic kidney disease with heart failure and stage 1 through stage 4 chronic kidney disease, or unspecified chronic kidney disease; N18.30 Chronic kidney disease, stage 3 unspecified; R91.8 Other nonspecific abnormal finding of lung field; E11.22 Type 2 diabetes mellitus with diabetic chronic kidney disease; Z88.0 Allergy status to penicillin; Z79.82 Long term (current) use of aspirin; Z79.890 Hormone replacement therapy; Z79.899 Other long term (current) drug therapy
CPT/HCPCS: 36415; 71045; 80048; 80053; 80076; 80307; 81001; 81003; 82009; 82040; 82272; 82310; 82728; 82803; 82947; 83036; 83605; 83615; 83735; 83880; 84100; 84145; 84484; 85007; 85025; 85027; 85379; 85610; 85652; 85730; 86140; 86850; 86900; 86901; 87040; 87045; 87046; 87070; 87077; 87086; 87205; 87324; 87449; 89055; 93005; 93308; 94002; 94003; 94799; 96361; 96365; 96366; 96367; 96375; 99285; C1758; G0480; J0131; J0153; J0171; J0461; J0610; J0696; J1100; J1450; J1572; J1650; J1940; J1956; J2185; J2250; J3010; J3370; J3411; P9047